=== PATIENT | male | born 1945 | race Two or more races ===

== ENCOUNTER 2020-07-19 07:33 | Emergency (ER) | payer OTHER, MEDICARE, MEDICAID, SELFPAY ==
--- NOTE | ~2020-07-19 | CT_ITS ---
EXAMINATION: CT ABDOMEN AND PELVIS WITH CONTRAST CLINICAL INFORMATION: Inguinal cellulitis and pain. Rule out Maria Guadalupe's gangrene COMPARISON: Ultrasound scrotum 07/19/2020 TECHNIQUE: Multidetector volumetric images were obtained from the superior aspect of the liver through the pubic symphysis following administration 85 mL of Omnipaque 350 intravenous contrast. Sagittal and coronal reformatted images were obtained on the technologist's workstation. Oral contrast: No This CT examination was performed using dose optimization techniques as appropriate, variously including the following: *Automated exposure control *Adjustment of mA and/or kV according to patient size (this includes techniques or standardized protocols for targeted exams where dose is matched to indication/reason for exam; i.e. extremities or head) *Use of iterative reconstruction technique DLP: 1025 mGy-cm FINDINGS: LUNG BASES: There is a right lower lobe compressive atelectasis of air bronchogram likely consolidation as well. The left lung base is clear. The heart size is normal. There are coronary artery calcifications. LIVER, GALLBLADDER, AND BILIARY TREE: The liver is normal in size, shape, and attenuation. No focal hepatic lesion or biliary ductal dilatation is present. The gallbladder is unremarkable with no evidence of radiopaque gallstones, gallbladder wall thickening, or obvious pericholecystic inflammatory changes. PANCREAS: Unremarkable. SPLEEN: Unremarkable. ADRENAL GLANDS: Unremarkable. KIDNEYS AND URETERS: The kidneys are normal in size, shape, and attenuation. No hydronephrosis, hydroureter, or calculi seen. No perinephric stranding. There are bilateral nonenhancing 1 cm upper and lower pole right renal mid and lower pole left renal cysts. BLADDER: Unremarkable. GASTROINTESTINAL TRACT: There is a mass anastomotic suture line at right hepatic flexure with patent lumen. There is diffuse colonic diverticulosis without diverticulitis. There is scattered stool and gas seen throughout the colon without distention. The small bowel loops are normal caliber. The stomach is nondistended and appears unremarkable. Appendix is not visualized. ABDOMINAL WALL: There is a left inguinal hernia containing a loop of colon and intraperitoneal fat within LYMPH NODES: Normal. VASCULAR: Unremarkable. PELVIC VISCERA: There is mild scrotal wall thickening but no gas visualized to suspect any 4 years gangrene. There is no pelvic free fluid or pelvic mass. No abnormal lymph nodes. OSSEOUS STRUCTURES: There are degenerative disc changes with vacuum disc phenomena and moderate spondylosis L5-S1, L4-L5 and L1-L2 disc levels. No fracture or lytic process seen. CT/CT abdomen pelvis w con IMPRESSION: Moderate scrotal wall thickening with no gas visualized is suspected hernias gangrene. Small left inguinal hernia containing intraperitoneal fat and a loop of sigmoid colon. Sigmoid diverticulosis without diverticulitis. There is no bowel obstruction., Free air or free fluid. Bilateral renal cysts. Right lower lobe consolidation/atelectasis.
--- NOTE | ~2020-07-19 | US_ITS ---
EXAMINATION: US SCROTUM CLINICAL INFORMATION: Testicular swelling and pain. Rule out torsion.. COMPARISON: None TECHNIQUE: A sonogram of the scrotum was performed assessing erickson-scale appearance and color Doppler flow. Spectral Doppler analysis of the arterial and venous flow were performed in the testes bilaterally. FINDINGS: RIGHT: Right testicle measures 3.6 x 2.8 x 2.5 cm, volume 13.0 mL. No focal testicular parenchymal lesions are visualized. Spectral Doppler analysis of the arterial and venous flow is normal in the right testis. Right epididymal head is normal in size. There is a small epididymal head cyst measuring 0.8 x 0.8 x 1.0 cm. There is a small right hydrocele. No varicocele is seen. Right epididymal Doppler flow is normal. LEFT: Left testicle measures 3.6 x 3.0 x 2.6 cm, volume 14.8 mL. No focal testicular parenchymal lesions are visualized. Spectral Doppler analysis of the arterial and venous flow is normal in the left testis. Left epididymal head is normal in size. There is small left hydrocele. No varicocele is seen. Left epididymal Doppler flow is normal. There is diffuse scrotal wall thickening. US/US scrotum IMPRESSION: No evidence of scrotal torsion. Normal vascular flow seen to epididymis and testes. Diffuse scrotal skin thickening. Bilateral small hydroceles. Right epididymal head cyst.
--- NOTE | ~2020-07-19 | US_ITS ---
EXAMINATION: US SCROTUM CLINICAL INFORMATION: Testicular swelling and pain. Rule out torsion.. COMPARISON: None TECHNIQUE: A sonogram of the scrotum was performed assessing erickson-scale appearance and color Doppler flow. Spectral Doppler analysis of the arterial and venous flow were performed in the testes bilaterally. FINDINGS: RIGHT: Right testicle measures 3.6 x 2.8 x 2.5 cm, volume 13.0 mL. No focal testicular parenchymal lesions are visualized. Spectral Doppler analysis of the arterial and venous flow is normal in the right testis. Right epididymal head is normal in size. There is a small epididymal head cyst measuring 0.8 x 0.8 x 1.0 cm. There is a small right hydrocele. No varicocele is seen. Right epididymal Doppler flow is normal. LEFT: Left testicle measures 3.6 x 3.0 x 2.6 cm, volume 14.8 mL. No focal testicular parenchymal lesions are visualized. Spectral Doppler analysis of the arterial and venous flow is normal in the left testis. Left epididymal head is normal in size. There is small left hydrocele. No varicocele is seen. Left epididymal Doppler flow is normal. There is diffuse scrotal wall thickening. US/US scrotum doppler IMPRESSION: No evidence of scrotal torsion. Normal vascular flow seen to epididymis and testes. Diffuse scrotal skin thickening. Bilateral small hydroceles. Right epididymal head cyst.
[2020-07-19 07:44] VITALS: BP 165/73; PULSE 77; RESP 18; TEMP 37.1; O2SAT 97; BMI 27.1
--- NOTE | 2020-07-19 09:58 | PC.NURSE ---
BLADDER SCAN FOR PVR PERFORMED 935, RESULTS 17 MLS REPORTED TO INESSA MORALES
[2020-07-19 10:10] LABS: Glucose Urine UA NEG (NEG); Leukocyte Esterase Urine NEG (NEG); Nitrite Urine NEG (NEG); PH 5.5 (5.0-8.0); Specific Gravity - Urine >= 1.030 (1.005-1.025); Urine Blood TRACE (NEG); Urine Ketones NEG (NEG); Urine Protein 2+ MG/DL (NEG-TRACE)
--- NOTE | 2020-07-19 10:16 | ED_ITS ---
HPI - Male Genitourinary General Chief complaint: Urogenital-Male Stated complaint: genital discomfort Time Seen by Provider: 07/19/20 09:03 Source: patient Mode of arrival: ambulatory Limitations: no limitations History of Present Illness HPI Narrative: 74 y/o male with history of DM, CAD s/p stent x2, HTN, HLD who presents with 6 days of worsening scrotal swelling and pain. He also reports a red, spreading, painful itchy rash to his inguinal area that has spread to his thighs, abdomen and arms. He reports the scrotal swelling and worsened significantly over the last few days and now his penis is also swollen. He is able to urinate and fully empty his bladder but he has to push the urine out. He denies fever, chills, N/V/D. No known irritant or allergic exposures. He has never had this problem before. He denies a history of heart failure or being on any diuretic medications. MD Complaint: testicle swelling Onset (ago): day(s) (5) Duration: constant Location: penis, right testicle, left testicle, right inguinal region and left inguinal region Radiation: penis Severity: severe Quality: aching Relieving factors: rest Exacerbating factors: urination, palpation and movement Associated symptoms: Reports swelling and rash Related Data Sexually active: No Home Medications Medication Instructions Recorded Confirmed budesonide-formoterol HFA 160 2 puff INHALATION Q12H 06/21/20 06/21/20 mcg-4.5 mcg/actuation aerosol inhaler cholecalciferol (vitamin D3) 25 25 mcg PO DAILY 06/21/20 06/21/20 mcg (1,000 unit) capsule cyanocobalamin (vitamin B-12) 1,000 mcg PO DAILY 06/21/20 06/21/20 1,000 mcg capsule Previous Rx's Medication Instructions Recorded clopidogrel 75 mg tablet 75 mg PO DAILY #90 tab 04/19/20 linagliptin 5 mg tablet 5 mg PO DAILY #90 tab 04/22/20 metformin 500 mg tablet 500 mg PO BID #180 tab 04/22/20 rosuvastatin 20 mg tablet 20 mg PO DAILY #90 tab 05/13/20 glimepiride 2 mg tablet 2 mg PO QAM #90 tab 05/23/20 albuterol sulfate 90 mcg/actuation 2 puff INHALATION Q6H PRN #8.5 g 06/21/20 aerosol inhaler lisinopril 20 mg tablet 20 mg PO DAILY #90 tab 06/21/20 metoprolol succinate 50 mg 50 mg PO DAILY #90 tab 06/21/20 tablet,extended release 24 hr tramadol 50 mg tablet 50 mg PO Q8H PRN 90 Days #270 tab 06/21/20 cephalexin 500 mg PO Q8H 7 Days #21 cap 07/19/20 diphenhydramine HCl [Benadryl 25 mg PO Q6H PRN #10 tab 07/19/20 Allergy] doxycycline monohydrate 100 mg PO BID #14 cap 07/19/20 furosemide [Lasix] 40 mg PO QAM #7 tab 07/19/20 Allergies Allergy/AdvReac Type Severity Reaction Status Date / Time Shellfish Allergy Mild NOT Uncoded 12/04/19 15:48 APPLICABLE TUNA FISH Allergy Mild NOT Uncoded 12/04/19 15:48 APPLICABLE Review of Systems Review of Systems: Constitutional: No Fever, No Chills ENT/Mouth: No sore throat, No Rhinorrhea, No Swallowing Difficulty Cardiovascular: No Chest Pain, No SOB, No Orthopnea, No LE Edema Respiratory: No Cough, No Sputum Gastrointestinal: No Nausea, No Vomiting, No Diarrhea, No abdominal Pain, No Hematochezia, No Melena Genitourinary: No Dysuria, + Urinary Frequency, No Hematuria, +scrotal swelling, +penile swelling Musculoskeletal: No joint pain, No Myalgias Skin: No Skin Lesions, + rash Neuro: No Weakness, No Numbness, No Dizziness, No Headache Psych: No Anxiety/Panic, No Depression Heme/Lymph: No Bruising, No Lymphadenopathy Endocrine: No Polyuria, No Polydipsia PMFSH Past Medical History Attestation statement: The following information was validated with the patient. Medical History Asthma Colon cancer Coronary artery disease Diabetic nephropathy Generalized osteoarthritis Hypercholesterolemia Hypertension Peripheral vascular disease Type 2 diabetes mellitus with hyperglycemia Vitamin D deficiency Surgical History (Updated 03/02/20 @ 10:15 by JINNY Garcia) History of vascular surgery S/P sclerotherapy of varicose veins Family History Family History (Updated 03/02/20 @ 10:16 by JINNY Garcia) Father Hypertension Mother CVD (cardiovascular disease) Hypertension Maternal Uncle Prostate cancer Social History Social History (Updated 06/21/20 @ 12:45 by Katy Casanova [facility]) Alcohol intake: former Smoking Status: Never smoker Advance Directives: No Advance Directives Information Provided: No Physical Exam Vital Signs: Vital Signs: Last Vital Signs Temp 96.9 F 07/19/20 13:17 Pulse 64 07/19/20 13:17 Resp 16 07/19/20 13:17 BP 144/68 H 07/19/20 13:17 Pulse Ox 96 07/19/20 13:17 Body Mass Index 27.1 Appearance: Alert. Oriented X3. No acute distress. Eyes: Pupils equal, round and reactive to light. ENT: Pharynx normal. Neck: Normal inspection. Neck supple. CVS: Normal heart rate and rhythm. Pulses normal. Respiratory: No respiratory distress. Breath sounds normal. Abdomen: Soft and nontender. +BS x4 : Significant penile and scrotal edema and tenderness, able to partially retract foreskin but due to edema and pain unable to forcefully fully retract, n o palpable scrotal mass, bilateral inguinal erythematous, prurutic rash. Skin: Skin warm and dry. Normal skin color. Normal skin turgor. Diffuse erythematous, tender, warm rash ininguianl areas bilaterally extending to anterior thighs with small red patches as well as lower abdominal wall. Extremities: No lower extremity edema. Neuro: Oriented X 3. No motor deficit. No sensory deficit. Course Course Course Narrative: 74 y/o male with history of DM, HTN, HLD, CAD who presents with new onset of scrotal and penile swelling for the last 5 days as well as painful, itchy rash in the inguinal area. No fever or chills. He is afebrile and not tachycardic on arrival. He is not septic at this time. Given location of rash, pain, and swelling as well as hx DM will need to r/o Fornier's gangrene - case was d/w Dr. Coulter who recommended CT scan and septic workup. IV zosyn ordered Reevaluation(s) Reevaluation #1: Lactic normal. No Leukocytosis. Scrotal U/S showing normal blood flow, no torsion, diffuse thickening of scrotal skin. CT scan penidng. Reevaluation #2: CT scan did not show any evidence of gaseous infection or Fornier's gangrene. Given his clinical stability and negative workup he is stable for discharge home with PO antibiotics, PO lasix as discussed with Dr. Henderson. He will need follow up with Dr. Huber. He was counseled on his diagnosis of cellulitis and need for outpatient follow up. He agrees with plan and agrees to return to the [facility] if any of his symptoms worsen. MDM - Male Genitourinary Lab Data Result diagrams: 07/19/20 10:48 07/19/20 10:48 Labs: Lab Results 07/19/20 07/19/20 07/19/20 Range/Units 09:42 10:47 10:48 WBC 8.7 (4.8-10.8) X10*3/uL RBC 4.38 L (4.60-5.80) X10*6/uL Hgb 13.1 L (14.0-18.0) g/dl Hct 41.2 L (42-52) % MCV 94.1 (80-98) fL MCH 29.9 (27.0-33.0) pg MCHC 31.8 (31.0-36.0) g/dl RDW 14.2 (11.0-16.0) % Plt Count 142 L (160-400) X10*3/uL MPV 12.0 (9.4-12.4) fL Immature Gran % (Auto) 0.3 (0.0-0.4) % Neut % (Auto) 79.6 H (45-73) % Lymph % (Auto) 9.4 L (20-40) % [place] % (Auto) 6.8 (2-11) % Eos % (Auto) 3.6 (0-4) % Baso % (Auto) 0.3 (0-2) % Lymph # (Auto) 0.8 L (1.2-4.9) X10*3/uL [place] # (Auto) 0.6 (0.1-1.2) X10*3/uL Eos # (Auto) 0.3 (0.0-0.4) X10*3/uL Baso # (Auto) 0.0 (0.0-0.2) X10*3/uL Abs Immat Gran (auto) 0.03 (0.00-0.03) X10*3/uL Absolute Neuts (auto) 6.9 (2.0-8.3) X10*3/uL Absolute Nucleated RBC 0.000 (0.0-0.012) X10*3/uL Nucleated RBC % (auto) 0.0 (0.0-0.2) /100WBC Hold Blue Top Sodium (135-145) mmol/L Potassium (3.3-5.1) mmol/L Chloride (96-108) mmol/L Carbon Dioxide (22-29) mmol/L Anion Gap (12-20) BUN (9-16) mg/dL Creatinine (0.5-1.4) mg/dL Estim Creat Clear Calc Estimated GFR Random Glucose (60-115) mg/dL Lactic Acid 1.5 (0.5-2.0) mmol/L Calcium (8.4-10.2) mg/dL Magnesium (1.6-2.6) mg/dL Total Bilirubin (0.0-1.0) mg/dL Direct Bilirubin (0.0-0.5) mg/dL AST (5-37) U/L ALT (0-40) U/L Alkaline Phosphatase (39-117) U/L Total Protein (6.5-8.0) g/dL Albumin (3.5-5.0) g/dL Urine Color YELLOW Urine Appearance CLEAR Urine pH 5.5 (5.0-8.0) Ur Specific [place] >= 1.030 H (1.005-1.025) Urine Protein 2+ H (NEG-TRACE) MG/DL Urine Glucose (UA) NEG (NEG) MG/DL Urine Ketones NEG (NEG) MG/DL Urine Blood TRACE (NEG) Urine Nitrite NEG (NEG) Ur Leukocyte Esterase NEG (NEG) Urine RBC 0-2 (0) /HPF Urine WBC 0 (0-4) /HPF Ur Squamous Epith Cells NONE /LPF Urine Bacteria NONE /LPF Granular Casts 0-2 /LPF 07/19/20 07/19/20 Range/Units 10:48 10:48 WBC (4.8-10.8) X10*3/uL RBC (4.60-5.80) X10*6/uL Hgb (14.0-18.0) g/dl Hct (42-52) % MCV (80-98) fL MCH (27.0-33.0) pg MCHC (31.0-36.0) g/dl RDW (11.0-16.0) % Plt Count (160-400) X10*3/uL MPV (9.4-12.4) fL Immature Gran % (Auto) (0.0-0.4) % Neut % (Auto) (45-73) % Lymph % (Auto) (20-40) % [place] % (Auto) (2-11) % Eos % (Auto) (0-4) % Baso % (Auto) (0-2) % Lymph # (Auto) (1.2-4.9) X10*3/uL [place] # (Auto) (0.1-1.2) X10*3/uL Eos # (Auto) (0.0-0.4) X10*3/uL Baso # (Auto) (0.0-0.2) X10*3/uL Abs Immat Gran (auto) (0.00-0.03) X10*3/uL Absolute Neuts (auto) (2.0-8.3) X10*3/uL Absolute Nucleated RBC (0.0-0.012) X10*3/uL Nucleated RBC % (auto) (0.0-0.2) /100WBC Hold Blue Top SEE NOTE Sodium 141 (135-145) mmol/L Potassium 5.0 (3.3-5.1) mmol/L Chloride 108 (96-108) mmol/L Carbon Dioxide 27 (22-29) mmol/L Anion Gap 11 L (12-20) BUN 29 H (9-16) mg/dL Creatinine 1.36 (0.5-1.4) mg/dL Estim Creat Clear Calc 47.5 Estimated GFR 52 Random Glucose 156 H (60-115) mg/dL Lactic Acid (0.5-2.0) mmol/L Calcium 10.0 (8.4-10.2) mg/dL Magnesium 1.7 (1.6-2.6) mg/dL Total Bilirubin 1.2 H (0.0-1.0) mg/dL Direct Bilirubin 0.4 (0.0-0.5) mg/dL AST 41 H (5-37) U/L ALT 33 (0-40) U/L Alkaline Phosphatase 63 (39-117) U/L Total Protein 6.7 (6.5-8.0) g/dL Albumin 3.9 (3.5-5.0) g/dL Urine Color Urine Appearance Urine pH (5.0-8.0) Ur Specific [place] (1.005-1.025) Urine Protein (NEG-TRACE) MG/DL Urine Glucose (UA) (NEG) MG/DL Urine Ketones (NEG) MG/DL Urine Blood (NEG) Urine Nitrite (NEG) Ur Leukocyte Esterase (NEG) Urine RBC (0) /HPF Urine WBC (0-4) /HPF Ur Squamous Epith Cells /LPF Urine Bacteria /LPF Granular Casts /LPF Discharge Plan Discharge Clinical Impression: Scrotal edema Cellulitis Qualifiers: Site of cellulitis: trunk Site of cellulitis of trunk: groin Qualified Code(s): L03.314 - Cellulitis of groin Patient Disposition: Home, Self-Care Instructions: Cellulitis (ED), Scrotal Pain (ED) Additional Instructions: Your lab workup today was unremarkable. Your Ultrasound showed skin thickening which can be seen with infection of the skin. Your CT scan helped to rule a dangerous type of infection. You are being started on 2 antibiotics for this. Take Benadryl 25 mg as needed for itching rash. You are also being started on a water pill also known as a diuretic for 1 week to help with swelling in your scrotum. Recommend elevating your scrotum as much as possible, place a towel between your legs with your scrotum elevated up. Avoid standing on your feet for prolonged time. Recommend following up with Urology as soon as possible. If you can no longer urinate or fully empty your bladder or if your rash worsens or if you develop fevers, come back to the ER for further evaluation. Prescriptions: New cephalexin 500 mg capsule 500 mg PO Q8H 7 Days Qty: 21 RF: 0 doxycycline monohydrate 100 mg capsule 100 mg PO BID Qty: 14 RF: 0 furosemide [Lasix] 40 mg tablet 40 mg PO QAM Qty: 7 RF: 0 diphenhydramine HCl [Benadryl Allergy] 25 mg tablet 25 mg PO Q6H PRN (Reason: itching) Qty: 10 RF: 0 No Action clopidogrel 75 mg tablet 75 mg PO DAILY Qty: 90 RF: 1 metformin 500 mg tablet 500 mg PO BID Qty: 180 RF: 1 linagliptin [Tradjenta] 5 mg tablet 5 mg PO DAILY Qty: 90 RF: 1 rosuvastatin 20 mg tablet 20 mg PO DAILY Qty: 90 RF: 2 glimepiride 2 mg tablet 2 mg PO QAM Qty: 90 RF: 1 budesonide-formoterol [Symbicort] 160-4.5 mcg/actuation HFA aerosol inhaler 2 puff inhalation Q12H RF: 0 cyanocobalamin (vitamin B-12) 1,000 mcg capsule 1,000 mcg PO DAILY RF: 0 cholecalciferol (vitamin D3) 25 mcg (1,000 unit) capsule 25 mcg PO DAILY RF: 0 albuterol sulfate [Ventolin HFA] 90 mcg/actuation HFA aerosol inhaler 2 puff inhalation Q6H PRN (Reason: bronchospasm) Qty: 8.5 RF: 0 tramadol 50 mg tablet 50 mg PO Q8H PRN (Reason: pain) 90 Days Qty: 270 RF: 1 metoprolol succinate 50 mg tablet extended release 24 hr 50 mg PO DAILY Qty: 90 RF: 1 lisinopril 20 mg tablet 20 mg PO DAILY Qty: 90 RF: 1 Referrals: José Miguel Huber MD [Physician] - 2 days (scrotal swelling and cellulitis ) Interventions: ED Discharge Assessment Last Done: 07/19/20 13:32 Discharge Date/Time: 07/19/20 13:33
[2020-07-19 10:19] LABS: Appearance Urine CLEAR; Color Urine YELLOW
[2020-07-19 10:39] LABS: RBC Urine 0-2 /HPF (0); WBC Urine 0 /HPF (0-4)
[2020-07-19 10:40] LABS: Granular Casts Urine 0-2 /LPF
[2020-07-19 10:55] LABS: MANUAL DIFF FLAG NO
[2020-07-19] MEDS: diphenhydrAMINE HCL 25 MG TABLET PO (10:57)
[2020-07-19] MEDS: Piperacillin Sodium/Tazobactam 3.375 GM in 0.9 % Sodium Chloride 50 ML IV (10:58)
[2020-07-19 11:02] LABS: Basophils Percent Auto 0.3 % (0-2); Eosinophils Absolute Auto 0.3 X10*3/uL (0.0-0.4); Eosinophils Percent Auto 3.6 % (0-4); Hematocrit 41.2 % (42-52); Hemoglobin 13.1 g/dl (14.0-18.0); Imm Gran Abs Auto 0.03 X10*3/uL (0.00-0.03); Imm Gran Pct Auto 0.3 % (0.0-0.4); Lymphocytes Absolute Auto 0.8 X10*3/uL (1.2-4.9); Lymphocytes Percent Auto 9.4 % (20-40); Mean Corpuscular HGB Conc 31.8 g/dl (31.0-36.0); Mean Corpuscular Hemoglobin 29.9 pg (27.0-33.0); Mean Corpuscular Volume 94.1 fL (80-98); Monocytes Absolute Auto 0.6 X10*3/uL (0.1-1.2); Monocytes Percent Auto 6.8 % (2-11); Neutrophils Absolute Auto 6.9 X10*3/uL (2.0-8.3); Neutrophils Percent Auto 79.6 % (45-73); Platelet Count 142 X10*3/uL (160-400); Red Blood Count 4.38 X10*6/uL (4.60-5.80); Red Cell Distribution Width 14.2 % (11.0-16.0); White Blood Count 8.7 X10*3/uL (4.8-10.8)
[2020-07-19 11:15] LABS: Lactic Acid 1.5 mmol/L (0.5-2.0)
[2020-07-19 11:21] LABS: Alanine Aminotransferase 33 U/L (0-40); Albumin Level 3.9 g/dL (3.5-5.0); Alkaline Phosphatase 63 U/L (39-117); Anion Gap 11 (12-20); Aspartate Amino Transferase 41 U/L (5-37); Bilirubin Direct 0.4 mg/dL (0.0-0.5); Bilirubin Total 1.2 mg/dL (0.0-1.0); Blood Urea Nitrogen 29 mg/dL (9-16); Carbon Dioxide 27 mmol/L (22-29); Chloride 108 mmol/L (96-108); Creatinine Clr Calc Pharmacy 47.5; Estimated Glomerular Filt Rate 52; Glucose Random 156 mg/dL (60-115); Magnesium 1.7 mg/dL (1.6-2.6); Sodium 141 mmol/L (135-145); Total Protein 6.7 g/dL (6.5-8.0)
[2020-07-19] MEDS: iohexoL 350 MG/ML 100 ML INFUS..BTL IV (11:54)
[2020-07-19 13:17] VITALS: BP 144/68; PULSE 64; RESP 16; TEMP 36.1; O2SAT 96
== END 2020-07-19 13:33 | disposition home or self-care (01) ==
PROVIDERS: Physician Assistant; Emergency Provider Emergency Medicine; PCP Internal Medicine
DX: N50.82 Scrotal pain (principal); N50.89 Other specified disorders of the male genital organs; E11.9 Type 2 diabetes mellitus without complications; I10 Essential (primary) hypertension; E78.00 Pure hypercholesterolemia, unspecified; Z85.038 Personal history of other malignant neoplasm of large intestine
CPT/HCPCS: 36415; 51798; 74177; 76870; 80048; 80076; 81001; 81003; 83605; 83735; 85025; 87040; 93975; 96361; 96365; 99284; J2543; Q0163; Q9967

== ENCOUNTER 2020-08-31 08:23 | Outpatient (REF) | payer MEDICARE, OTHER, SELFPAY ==
[2020-08-31 09:18] LABS: MANUAL DIFF FLAG NO
[2020-08-31 09:25] LABS: Basophils Percent Auto 0.7 % (0-2); Eosinophils Absolute Auto 0.2 X10*3/uL (0.0-0.4); Eosinophils Percent Auto 2.6 % (0-4); Hematocrit 39.5 % (42-52); Hemoglobin 12.6 g/dl (14.0-18.0); Imm Gran Abs Auto 0.02 X10*3/uL (0.00-0.03); Imm Gran Pct Auto 0.3 % (0.0-0.4); Lymphocytes Absolute Auto 1.3 X10*3/uL (1.2-4.9); Lymphocytes Percent Auto 20.6 % (20-40); Mean Corpuscular HGB Conc 31.9 g/dl (31.0-36.0); Mean Corpuscular Hemoglobin 30.3 pg (27.0-33.0); Monocytes Absolute Auto 0.7 X10*3/uL (0.1-1.2); Neutrophils Absolute Auto 3.9 X10*3/uL (2.0-8.3); Neutrophils Percent Auto 63.8 % (45-73); Platelet Count 133 X10*3/uL (160-400); Red Blood Count 4.16 X10*6/uL (4.60-5.80); White Blood Count 6.1 X10*3/uL (4.8-10.8)
[2020-08-31 09:38] LABS: Estimated Average Glucose 154 mg/dL
[2020-08-31 09:59] LABS: Alanine Aminotransferase 37 U/L (0-40); Albumin Level 4.1 g/dL (3.5-5.0); Alkaline Phosphatase 63 U/L (39-117); Aspartate Amino Transferase 38 U/L (5-37); Bilirubin Total 1.5 mg/dL (0.0-1.0); Blood Urea Nitrogen 31 mg/dL (9-16); Calcium 9.8 mg/dL (8.4-10.2); Cholesterol 131 mg/dL; Estimated Glomerular Filt Rate 46; Glucose Random 137 mg/dL (60-115); HDL Cholesterol 49 mg/dL; LDL Cholesterol Calculated 50 mg/dl; Total Protein 7.1 g/dL (6.5-8.0); Triglycerides 164 mg/dL
[2020-08-31 10:01] LABS: Free T4 (Free Thyroxine) 1.02 ng/dL (0.71-1.85)
[2020-08-31 10:04] LABS: Anion Gap 12 (12-20); Carbon Dioxide 25 mmol/L (22-29); Chloride 110 mmol/L (96-108); Sodium 141 mmol/L (135-145)
[2020-08-31 10:41] LABS: Folate 15.2 ng/mL (> or = 4.0); Vitamin B12 > 2000 pg/mL (200-900)
[2020-08-31 11:56] LABS: Creatinine Urine 97.32 mg/dL; Microalbum/Creatinine Ratio Ur 900.1 ug/mg cr
== END 2020-08-31 08:24 | disposition home or self-care (01) ==
LOC: HO.10HDL 08:23
PROVIDERS: Visit Provider Internal Medicine
DX: E11.65 Type 2 diabetes mellitus with hyperglycemia (principal); E78.00 Pure hypercholesterolemia, unspecified; I10 Essential (primary) hypertension
CPT/HCPCS: 36415; 80053; 80061; 82043; 82607; 82746; 83036; 84439; 84443; 85025

== ENCOUNTER 2020-08-31 18:21 | Emergency (ER) | payer OTHER, MEDICARE, MEDICAID, SELFPAY ==
--- NOTE | 2020-08-31 | ECG_ITS ---
Test Reason : HIGH POTTISUM Blood Pressure : / mmHG Vent. Rate : 073 BPM Atrial Rate : 073 BPM P-R Int : 132 ms QRS Dur : 130 ms QT Int : 424 ms P-R-T Axes : 065 -02 011 degrees QTc Int : 467 ms Artifact in tracing Sinus rhythm with Premature supraventricular complexes Right bundle branch block Anteroseptal infarct (cited on or before 13-MAR-2008) Abnormal ECG When compared with ECG of 16-MAR-2008 16:43, Premature supraventricular complexes are now Present Right bundle branch block is now Present Referred By: Harrison Paredes Electronically Signed By:THERON LOVELACE
[2020-08-31 18:54] VITALS: BP 199/78; PULSE 83; RESP 18; TEMP 36.1; O2SAT 99; BMI 27.2
--- NOTE | 2020-08-31 19:56 | ED_ITS ---
HPI - Recheck/Abnormal Lab/Rx General Chief Complaint: Recheck/Abnormal Lab/Rx Stated Complaint: Potassium Levels High Time Seen by Provider: 08/31/20 19:45 Source: patient Mode of arrival: ambulatory Limitations: no limitations History of Present Illness HPI narrative: Patient's history of diabetes coronary disease asthma hypertension had routine labs done today around 08:00 PCP called him to go to the hospital for potassium of 6 patient denies any complaints no dizziness no leg cramps or chest pain no syncope patient is not taking any new medication, no use of orange juice or bananas and urinating normally had history of high potassium in the past Related Data Home Medications Medication Instructions Recorded Confirmed budesonide-formoterol HFA 160 2 puff INHALATION Q12H 06/21/20 06/21/20 mcg-4.5 mcg/actuation aerosol inhaler cholecalciferol (vitamin D3) 25 25 mcg PO DAILY 06/21/20 06/21/20 mcg (1,000 unit) capsule cyanocobalamin (vitamin B-12) 1,000 mcg PO DAILY 06/21/20 06/21/20 1,000 mcg capsule Previous Rx's Medication Instructions Recorded clopidogrel 75 mg tablet 75 mg PO DAILY #90 tab 04/19/20 linagliptin 5 mg tablet 5 mg PO DAILY #90 tab 04/22/20 metformin 500 mg tablet 500 mg PO BID #180 tab 04/22/20 rosuvastatin 20 mg tablet 20 mg PO DAILY #90 tab 05/13/20 glimepiride 2 mg tablet 2 mg PO QAM #90 tab 05/23/20 albuterol sulfate 90 mcg/actuation 2 puff INHALATION Q6H PRN #8.5 g 06/21/20 aerosol inhaler metoprolol succinate 50 mg 50 mg PO DAILY #90 tab 06/21/20 tablet,extended release 24 hr tramadol 50 mg tablet 50 mg PO Q8H PRN 90 Days #270 tab 06/21/20 cephalexin 500 mg PO Q8H 7 Days #21 cap 07/19/20 diphenhydramine HCl [Benadryl 25 mg PO Q6H PRN #10 tab 07/19/20 Allergy] doxycycline monohydrate 100 mg PO BID #14 cap 07/19/20 furosemide [Lasix] 40 mg PO QAM #7 tab 07/19/20 lisinopril 20 mg tablet 20 mg PO DAILY #90 tab 08/20/20 Allergies Allergy/AdvReac Type Severity Reaction Status Date / Time Shellfish Allergy Mild NOT Uncoded 08/31/20 18:54 APPLICABLE TUNA FISH Allergy Mild NOT Uncoded 08/31/20 18:54 APPLICABLE Review of Systems Review of Systems: Constitutional : No Weight loss, No Fever, No Chills ENT/Mouth : No sore throat, No Rhinorrhea Eyes: No Eye Pain, No Swelling Cardiovascular : No Chest Pain, no palpitations Respiratory : No Cough, No Sputum, no shortness of breath Gastrointestinal : no Nausea, No Vomiting, No Diarrhea, No abdominal Pain, no black stools Genitourinary : No Dysuria, No Urinary Frequency Musculoskeletal : No joint pain, No Myalgias, No Joint Swelling Skin : No Skin Lesions, No rash Neuro : No Weakness, No Numbness, No Dizziness, No Headache Psych : No Anxiety/Panic, No Depression Heme/Lymph: No Bruising, No Lymphadenopathy Endocrine : No Polyuria, No Polydipsia All other systems reviewed and are negative [facility] Past Medical History Medical History Asthma Colon cancer Coronary artery disease Diabetic nephropathy Generalized osteoarthritis Hypercholesterolemia Hypertension Peripheral vascular disease Type 2 diabetes mellitus with hyperglycemia Vitamin D deficiency Surgical History History of vascular surgery S/P sclerotherapy of varicose veins Family History Family History Father Hypertension Mother CVD (cardiovascular disease) Hypertension Maternal Uncle Prostate cancer Social History Social History Alcohol intake: former Advance Directives: No Advance Directives Information Provided: Yes Physical Exam Vital Signs: Vital Signs: Last Vital Signs Temp 96.9 F 08/31/20 18:54 Pulse 83 08/31/20 18:54 Resp 18 08/31/20 18:54 BP 199/78 H 08/31/20 18:54 Pulse Ox 99 08/31/20 18:54 Body Mass Index 27.2 Appearance: Alert. Oriented X3. No acute distress. Eyes: PERRLA, No Nystagmus ENT: Pharynx normal. Oral Mucosa moist Neck: Normal inspection. Neck supple. CVS: Normal heart rate and rhythm. Pulses normal. Respiratory: No respiratory distress. Equal air entry bilateral, no wheezing/rales/rhonchi Abdomen: Soft and nontender. Bowel sounds are present, no mass palpable, no CVA tenderness Skin: Skin warm and dry. Normal skin color. Normal skin turgor. Extremities: No lower extremity edema. No calf tenderness Neuro: Oriented X 3. No motor deficit. No sensory deficit.No cerebellar signs , cranial nerves II-XII intact MDM - Recheck/Abnormal Lab/Rx MDM Narrative Medical decision making narrative: Patient labs showed potassium of 5.1 without any treatment or medications. Likely a.m. labs were lab error. Patient has CKD with creatinine of 1.59 and BUN 30 will give 1 L NS bolus Lab Data Attestation: I reviewed the patient's lab results. Result diagrams: 08/31/20 20:03 Labs: Lab Results 08/31/20 Range/Units 20:03 Sodium 143 (135-145) mmol/L Potassium 5.1 (3.3-5.1) mmol/L Chloride 111 H (96-108) mmol/L Carbon Dioxide 24 (22-29) mmol/L Anion Gap 13 (12-20) BUN 30 H (9-16) mg/dL Creatinine 1.59 H (0.5-1.4) mg/dL Estim Creat Clear Calc 40.6 Estimated GFR 43 Random Glucose 166 H (60-115) mg/dL Calcium 9.4 (8.4-10.2) mg/dL ECG Data Attestation: I personally reviewed and interpreted this ECG as follows: Interpretation: Normal sinus rhythm heart rate 73 beats per minute admitted branch block Q-wave in anterior septal leads no acute ischemia Discharge Plan Discharge Clinical Impression: Chronic kidney disease Qualifiers: Chronic kidney disease stage: stage 3 (moderate) Chronic kidney disease stage 3 subtype: stage 3b (GFR 30-44) Qualified Code(s): N18.32 - Chronic kidney disease, stage 3b Patient Disposition: Home, Self-Care Instructions: Chronic Kidney Disease (ED) Additional Instructions: Drink plenty of fluids Stop metformin Continue other medication follow-up with PCP next 3 days to recheck her labs Prescriptions: No Action clopidogrel 75 mg tablet 75 mg PO DAILY Qty: 90 RF: 1 metformin 500 mg tablet 500 mg PO BID Qty: 180 RF: 1 linagliptin [Tradjenta] 5 mg tablet 5 mg PO DAILY Qty: 90 RF: 1 rosuvastatin 20 mg tablet 20 mg PO DAILY Qty: 90 RF: 2 glimepiride 2 mg tablet 2 mg PO QAM Qty: 90 RF: 1 lisinopril 20 mg tablet 20 mg PO DAILY Qty: 90 RF: 2 cephalexin 500 mg capsule 500 mg PO Q8H 7 Days Qty: 21 RF: 0 doxycycline monohydrate 100 mg capsule 100 mg PO BID Qty: 14 RF: 0 furosemide [Lasix] 40 mg tablet 40 mg PO QAM Qty: 7 RF: 0 diphenhydramine HCl [Benadryl Allergy] 25 mg tablet 25 mg PO Q6H PRN (Reason: itching) Qty: 10 RF: 0 budesonide-formoterol [Symbicort] 160-4.5 mcg/actuation HFA aerosol inhaler 2 puff inhalation Q12H RF: 0 cyanocobalamin (vitamin B-12) 1,000 mcg capsule 1,000 mcg PO DAILY RF: 0 cholecalciferol (vitamin D3) 25 mcg (1,000 unit) capsule 25 mcg PO DAILY RF: 0 albuterol sulfate [Ventolin HFA] 90 mcg/actuation HFA aerosol inhaler 2 puff inhalation Q6H PRN (Reason: bronchospasm) Qty: 8.5 RF: 0 tramadol 50 mg tablet 50 mg PO Q8H PRN (Reason: pain) 90 Days Qty: 270 RF: 1 metoprolol succinate 50 mg tablet extended release 24 hr 50 mg PO DAILY Qty: 90 RF: 1
[2020-08-31 20:26] LABS: Anion Gap 13 (12-20); Blood Urea Nitrogen 30 mg/dL (9-16); Calcium 9.4 mg/dL (8.4-10.2); Carbon Dioxide 24 mmol/L (22-29); Chloride 111 mmol/L (96-108); Creatinine Clr Calc Pharmacy 40.6; Estimated Glomerular Filt Rate 43; Glucose Random 166 mg/dL (60-115); Potassium 5.1 mmol/L (3.3-5.1); Sodium 143 mmol/L (135-145)
--- NOTE | 2020-08-31 20:36 | PC.NURSE ---
potassium came back 5.1, md only wants fluid bolus and will cancl iv medications.
[2020-08-31] MEDS: 0.9 % Sodium Chloride 1,000 ML 999 ML IVCONT (20:44)
== END 2020-08-31 22:43 | disposition home or self-care (01) ==
PROVIDERS: Emergency Provider Internal Medicine; PCP Internal Medicine
DX: I12.9 Hypertensive chronic kidney disease with stage 1 through stage 4 chronic kidney disease, or unspecified chronic kidney disease (principal); E11.22 Type 2 diabetes mellitus with diabetic chronic kidney disease; N18.32 Chronic kidney disease, stage 3b; I25.10 Atherosclerotic heart disease of native coronary artery without angina pectoris; Z79.84 Long term (current) use of oral hypoglycemic drugs; Z79.899 Other long term (current) drug therapy
CPT/HCPCS: 36415; 80048; 93005; 96360; 99283; 99284

== ENCOUNTER → 2020-10-27 12:43 | Outpatient (BNVA) | payer MEDICARE, OTHER, SELFPAY | PROVIDERS: PCP Internal Medicine; Referring Provider Internal Medicine; Visit Provider Internal Medicine | DX: I25.10 Atherosclerotic heart disease of native coronary artery without angina pectoris (principal); E11.8 Type 2 diabetes mellitus with unspecified complications; I10 Essential (primary) hypertension; I25.2 Old myocardial infarction | CPT/HCPCS: 99212 ==

== ENCOUNTER → 2021-07-06 12:41 | Outpatient (BNVA) | payer MEDICARE, OTHER, SELFPAY | PROVIDERS: PCP Internal Medicine; Referring Provider Internal Medicine; Visit Provider Internal Medicine | DX: I25.10 Atherosclerotic heart disease of native coronary artery without angina pectoris (principal); I25.5 Ischemic cardiomyopathy; T82.867D Thrombosis due to cardiac prosthetic devices, implants and grafts, subsequent encounter; E11.9 Type 2 diabetes mellitus without complications; I10 Essential (primary) hypertension; I25.2 Old myocardial infarction; Z79.02 Long term (current) use of antithrombotics/antiplatelets; Z79.899 Other long term (current) drug therapy | CPT/HCPCS: 99212 ==

== ENCOUNTER 2021-08-01 07:35 | Outpatient (REF) | payer MEDICARE, OTHER, SELFPAY ==
[2021-08-01 10:20] LABS: MANUAL DIFF FLAG NO
[2021-08-01 10:24] LABS: Basophils Absolute Auto 0.1 X10*3/uL (0.0-0.2); Basophils Percent Auto 0.9 % (0-2); Eosinophils Absolute Auto 0.5 X10*3/uL (0.0-0.4); Eosinophils Percent Auto 5.9 % (0-4); Hematocrit 42.6 % (42.0-52.0); Hemoglobin 13.8 g/dl (14.0-18.0); Imm Gran Abs Auto 0.03 X10*3/uL (0.00-0.03); Imm Gran Pct Auto 0.4 % (0.0-0.4); Lymphocytes Absolute Auto 1.5 X10*3/uL (1.2-4.9); Lymphocytes Percent Auto 18.5 % (20-40); Mean Corpuscular HGB Conc 32.4 g/dl (31.0-36.0); Mean Corpuscular Hemoglobin 30.5 pg (27.0-33.0); Mean Corpuscular Volume 94.2 fL (80.0-98.0); Mean Platelet Volume 12.2 fL (9.4-12.4); Monocytes Absolute Auto 0.9 X10*3/uL (0.1-1.2); Monocytes Percent Auto 10.7 % (2-11); Neutrophils Absolute Auto 5.1 x10*3/uL (2.0-8.3); Neutrophils Percent Auto 63.6 % (45-73); Platelet Count 150 X10*3/uL (160-400); Red Blood Count 4.52 X10*6/uL (4.60-5.80); Red Cell Distribution Width 13.8 % (11.0-16.0)
[2021-08-01 10:36] LABS: Alanine Aminotransferase 41 U/L (0-40); Albumin Level 3.8 g/dL (3.5-5.0); Alkaline Phosphatase 79 U/L (39-117); Anion Gap 12 (12-20); Aspartate Amino Transferase 37 U/L (5-37); Bilirubin Total 1.2 mg/dL (0.0-1.0); Blood Urea Nitrogen 28 mg/dL (9-16); Calcium 9.9 mg/dL (8.4-10.2); Carbon Dioxide 27 mmol/L (22-29); Chloride 107 mmol/L (96-108); Cholesterol 192 mg/dL; Estimated Glomerular Filt Rate 46; Glucose Random 180 mg/dL (60-115); HDL Cholesterol 43 mg/dL; LDL Cholesterol Calculated 102 mg/dl; Potassium 5.9 mmol/L (3.3-5.1); Sodium 140 mmol/L (135-145); Total Protein 7.2 g/dL (6.5-8.0); Triglycerides 235 mg/dL
[2021-08-01 10:46] LABS: Estimated Average Glucose 186 mg/dL; Hemoglobin A1c % 8.1 %
[2021-08-01 11:03] LABS: Free T4 (Free Thyroxine) 1.14 ng/dL (0.71-1.85); Thyroid Stimulating Hormone 2.33 uIU/mL (0.32-4.0)
[2021-08-01 11:20] LABS: Creatinine Urine 100.87 mg/dL
[2021-08-01 11:33] LABS: Folate 18.6 ng/mL (> or = 4.0); Vitamin B12 1540 pg/mL (200-900)
== END 2021-08-01 07:36 | disposition home or self-care (01) ==
LOC: HO.10HDL 07:35
PROVIDERS: Visit Provider Internal Medicine
DX: E11.65 Type 2 diabetes mellitus with hyperglycemia (principal); E11.8 Type 2 diabetes mellitus with unspecified complications; E78.00 Pure hypercholesterolemia, unspecified
CPT/HCPCS: 36415; 80053; 80061; 82043; 82607; 82746; 83036; 84439; 84443; 85025

== ENCOUNTER 2021-08-29 07:35 | Outpatient (REF) | payer MEDICARE, OTHER, SELFPAY ==
[2021-08-29 11:37] LABS: Alanine Aminotransferase 36 U/L (0-40); Alkaline Phosphatase 73 U/L (39-117); Anion Gap 11 (12-20); Aspartate Amino Transferase 34 U/L (5-37); Bilirubin Total 1.6 mg/dL (0.0-1.0); Blood Urea Nitrogen 32 mg/dL (9-16); Calcium 9.8 mg/dL (8.4-10.2); Carbon Dioxide 26 mmol/L (22-29); Chloride 105 mmol/L (96-108); Cholesterol 140 mg/dL; Estimated Glomerular Filt Rate 43; Glucose Random 172 mg/dL (60-115); HDL Cholesterol 40 mg/dL; LDL Cholesterol Calculated 71 mg/dl; Potassium 5.6 mmol/L (3.3-5.1); Sodium 136 mmol/L (135-145); Total Protein 7.2 g/dL (6.5-8.0); Triglycerides 146 mg/dL
[2021-08-29 11:55] LABS: Creatinine Urine 90.85 mg/dL
[2021-08-29 11:59] LABS: Prostate Specific Antigen 2.62 ng/mL (<0.05-4.0)
== END 2021-08-29 07:36 | disposition home or self-care (01) ==
LOC: HO.10HDL 07:35
PROVIDERS: Nurse Practitioner Family; Visit Provider Internal Medicine
DX: Z12.5 Encounter for screening for malignant neoplasm of prostate (principal); E11.65 Type 2 diabetes mellitus with hyperglycemia; E11.8 Type 2 diabetes mellitus with unspecified complications; E78.00 Pure hypercholesterolemia, unspecified
CPT/HCPCS: 36415; 80053; 80061; 84153

== ENCOUNTER → 2022-07-05 12:43 | Outpatient (BNVA) | payer MEDICARE, OTHER, SELFPAY | PROVIDERS: PCP Internal Medicine; Referring Provider Internal Medicine; Visit Provider Internal Medicine | DX: I25.10 Atherosclerotic heart disease of native coronary artery without angina pectoris (principal); T82.867A Thrombosis due to cardiac prosthetic devices, implants and grafts, initial encounter; I25.5 Ischemic cardiomyopathy; I10 Essential (primary) hypertension; E11.65 Type 2 diabetes mellitus with hyperglycemia; E11.21 Type 2 diabetes mellitus with diabetic nephropathy; Z95.5 Presence of coronary angioplasty implant and graft | CPT/HCPCS: 99212 ==

== ENCOUNTER 2022-08-21 07:32 | Outpatient (REF) | payer MEDICARE, MEDICAID, SELFPAY ==
[2022-08-21 10:58] LABS: MANUAL DIFF FLAG NO
[2022-08-21 11:32] LABS: Basophils Absolute Auto 0.1 X10*3/uL (0.0-0.2); Basophils Percent Auto 0.6 % (0-2); Eosinophils Absolute Auto 0.2 X10*3/uL (0.0-0.4); Eosinophils Percent Auto 2.4 % (0-4); Hematocrit 42.4 % (42.0-52.0); Hemoglobin 13.5 g/dl (14.0-18.0); Imm Gran Abs Auto 0.03 X10*3/uL (0.00-0.03); Imm Gran Pct Auto 0.3 % (0.0-0.4); Lymphocytes Absolute Auto 1.4 X10*3/uL (1.2-4.9); Lymphocytes Percent Auto 15.6 % (20-40); Mean Corpuscular HGB Conc 31.8 g/dl (31.0-36.0); Mean Corpuscular Hemoglobin 30.9 pg (27.0-33.0); Mean Platelet Volume 11.7 fL (9.4-12.4); Monocytes Absolute Auto 0.5 X10*3/uL (0.1-1.2); Monocytes Percent Auto 5.5 % (2-11); Neutrophils Absolute Auto 6.6 x10*3/uL (2.0-8.3); Neutrophils Percent Auto 75.6 % (45-73); Platelet Count 183 X10*3/uL (160-400); Red Blood Count 4.37 X10*6/uL (4.60-5.80); Red Cell Distribution Width 13.3 % (11.0-16.0); White Blood Count 8.7 X10*3/uL (4.8-10.8)
[2022-08-21 12:09] LABS: Creatinine Urine 85.92 mg/dL
[2022-08-21 12:15] LABS: Alanine Aminotransferase 22 U/L (0-40); Albumin Level 4.1 g/dL (3.5-5.0); Alkaline Phosphatase 87 U/L (39-117); Anion Gap 13 (12-20); Aspartate Amino Transferase 27 U/L (5-37); Blood Urea Nitrogen 32 mg/dL (9-16); Calcium 10.2 mg/dL (8.4-10.2); Carbon Dioxide 27 mmol/L (22-29); Chloride 107 mmol/L (96-108); Cholesterol 126 mg/dL; Estimated Glomerular Filt Rate 41; Glucose Random 156 mg/dL (60-115); HDL Cholesterol 34 mg/dL; LDL Cholesterol Calculated 65 mg/dl; Sodium 141 mmol/L (135-145); Total Protein 7.7 g/dL (6.5-8.0); Triglycerides 137 mg/dL
[2022-08-21 12:34] LABS: Folate 13.4 ng/mL (> or = 4.0); Free T4 (Free Thyroxine) 1.16 ng/dL (0.71-1.85); Vitamin B12 > 2000 pg/mL (200-900)
== END 2022-08-21 07:33 | disposition home or self-care (01) ==
LOC: HO.10HDL 07:32
PROVIDERS: Visit Provider Internal Medicine
DX: E11.65 Type 2 diabetes mellitus with hyperglycemia (principal); E78.00 Pure hypercholesterolemia, unspecified
CPT/HCPCS: 36415; 80053; 80061; 82043; 82607; 82746; 84439; 84443; 85025

== ENCOUNTER 2022-12-11 12:53 | Outpatient (AMB) | payer MEDICARE, MEDICAID, SELFPAY ==
--- NOTE | 2022-12-11 13:05 | MHC.PC.OV ---
Vital Signs 12/11/22 13:06 Height 5 ft 8 in Weight 157 lb BMI 23.9 BP 132/60 Blood Pressure Location Lt brachial Position Sitting Pulse 56 Pulse Source Pulse Oximeter Temp Source Skin Pulse Oximetry (%) 96 Oxygen Delivery Method Room Air Intake Visit Reasons: hyperkalemia, DM Intake Note: Patient is here to follow up Allergies Shellfish Allergy (Mild, Uncoded 12/11/22 13:15) NOT APPLICABLE Medication List - Last Reconciled 12/11/22 by Allen Sevilla MD albuterol sulfate 90 mcg/actuation (Ventolin HFA) 2 puffs inhalation Q6H PRN amlodipine (Norvasc) 5 mg PO DAILY budesonide-formoterol 160-4.5 mcg/actuation (Symbicort) 2 puffs inhalation Q12H cholecalciferol (vitamin D3) 25 mcg PO DAILY clopidogrel 75 mg PO DAILY cyanocobalamin (vitamin B-12) 1,000 mcg PO DAILY empagliflozin (Jardiance) 10 mg PO DAILY gabapentin 100 mg PO BEDTIME glimepiride 2 mg PO QAM hydrocortisone 2.5% 1 appl topical BID PRN [Large Gauze Pads CURAD 4 x 4 in As directed] linagliptin (Tradjenta) 5 mg PO DAILY lisinopril 20 mg PO DAILY metoprolol succinate ER 100 mg PO DAILY 90 days rosuvastatin 20 mg PO DAILY tramadol 50 mg PO Q8H PRN 90 days Tobacco use date assessed: 12/11/22 Fall risk assessment: No Falls in past year Last assessed Fall Risk: 12/11/22 Dental Screening Dental Screen Date: 12/11/22 Did you have a dental visit in the last 12 months?: Yes Did you have a dental problem in the last 6 months where you did not have access to dental care?: No Was dental information given to patient?: Patient has dentist HPI hyperkalemia, DM HPI Details 76-year-old male with controlled diabetes mellitus hypercholesterolemia coronary artery disease asthma chronic kidney disease hypertension ischemic cardiomyopathy coming in for follow-up. August last seen. Patient has declined colon cancer screening. Patient has hyperkalemia and has been referred to Nephrology. patient did not have a schedule called from nephrology. advised to get the blood work now complains of frequency. no fever- started a month ago FORMERLY [facility] Medical History (Updated 12/11/22 @ 13:38 by Allen Sevilla MD) Ischemic cardiomyopathy Essential hypertension Colon cancer Type 2 diabetes mellitus with hyperglycemia Hypercholesterolemia Diabetic nephropathy Vitamin D deficiency Peripheral vascular disease Coronary artery disease Generalized osteoarthritis Asthma Surgical History History of vascular surgery S/P sclerotherapy of varicose veins Family History (Updated 08/28/22 @ 12:56 by Katy Casanova CMA) Father Hypertension Mother CVD (cardiovascular disease) Hypertension Maternal Uncle Prostate cancer Social History (Updated 07/05/22 @ 13:05 by Bijal Somers) Housing: House Alcohol intake: former Patient Tobacco Use Status: Never used Tobacco e-Cigarette/Vaping Use: Never Used Second Hand Smoke Exposure: No service: Yes Current occupational status: retired and disabled Current occupational exposures/hazards: No Cognitive needs: No Hearing needs: No Vision needs: No Questionnaire Thrive Questionnaire Date Thrive assessed: 05/22/22 AUDIT C Alcohol Use Questionnaire (AUDIT-C) 1. How often do you have a drink containing alcohol?: Never 3. How often do you have six or more drinks on one occasion?: Never Total Score: 0 Score Reviewed/Action Taken: No BALJIT-7 AMB Questionnaire BALJIT-7 Date BALJIT - 7 assessed: 05/22/22 Source: Developed by Drs. Leonel King, Sherry Rosales, Herman Rodriguez and colleagues, with an educational sandi from [employer]. Physical exam (Primary Care) Vital Signs: Last Vital Signs Pulse 56 12/11/22 13:06 BP 132/60 12/11/22 13:06 Pulse Ox 96 12/11/22 13:06 Oxygen Delivery Method Room Air 12/11/22 13:06 BMI result Body Mass Index 23.9 Tobacco/Smoking Status: Tobacco use Status Tobacco use date assessed 12/11/22 12/11/22 13:07 Patient Tobacco Use Status Never used Tobacco 12/11/22 13:07 Tobacco use type 07/05/22 13:16 e-Cigarette/Vaping Use Never Used 12/11/22 13:07 Thrive Assessment: Date of Thrive Assessment Date Thrive assessed 05/22/22 12/11/22 13:07 Const General: alert; No acute distress Eyes Conjunctivae: conjunctivae normal Resp Auscultation: clear to auscultation bilaterally Cardio Rate: regular rate Rhythm: regular rhythm GI Inspection: Yes normal to inspection Extrem General: Yes normal to inspection and No edema Results AMB Hemoglobin A1c AMB Hemoglobin A1c 6.1 % Last Edit by JINNY Pappas on 12/11/22 13:22 Results Reviewed Results Reviewed: Laboratory Last Values Hgb A1c (Clinic) 6.1 % (4.0-6.0) H 12/11/22 13:04 Assessment and Plan Assessment & Plan (1) Type 2 diabetes mellitus with hyperglycemia: Comment: Dr. Villagomez Code(s): E11.65 - Type 2 diabetes mellitus with hyperglycemia Qualifiers: Diabetes mellitus snf insulin use: without snf use Qualified Code(s): E11.65 - Type 2 diabetes mellitus with hyperglycemia Plan: Decrease the amount of carbohydrate intake, pasta, bread, rice and potatoes are all sugar and that is aside from all the sweet stuff, remember that fruits are good but they are Sweet also. Hemoglobin A1c goal of less than 7.0. Patient is on Jardiance 10 mg once a day glimepiride 2 mg once a day Tradjenta 5 mg once a day (2) Hypercholesterolemia: Code(s): E78.00 - Pure hypercholesterolemia, unspecified Plan: Avoid fried foods, chicken skin, eggs, butter margarine, pastries and meat. Be it pork or beef they have a lot of cholesterol LDL goal of less than 70 patient had blood work in August and is on rosuvastatin 20 mg once a day (3) Coronary artery disease: Comment: Stent placement 2003 [place] October 2006 echocardiogram November 2016 EF 40-45% ischemic cardiomyopathy myocardial perfusion January 2017 is ejection fraction 40% Code(s): I25.10 - Atherosclerotic heart disease of [place] coronary artery without angina pectoris Qualifiers: Coronary Disease-Associated Artery/Lesion type: [place] artery [place] vs. transplanted heart: [place] heart Associated angina: without angina Qualified Code(s): I25.10 - Atherosclerotic heart disease of [place] coronary artery without angina pectoris Plan: Control the cholesterol, weight, blood pressure, diabetes (4) Chronic kidney disease: Code(s): N18.9 - Chronic kidney disease, unspecified Plan: Patient has been referred to Nephrology. Will do a repeat blood work (5) Hyperkalemia: Code(s): E87.5 - Hyperkalemia Plan: Concern about hyperkalemia patient on lisinopril 20 mg referral to nephrology done (6) Frequency of micturition: Code(s): R35.0 - Frequency of micturition Orders: Orders AMB Hemoglobin A1c Today E11.65 - Type 2 diabetes mellitus with hyperglycemia Comprehensive Met. Panel Today E87.5 - Hyperkalemia UA w Microscopic Today R35.0 - Frequency of micturition US bladder Today R35.0 - Frequency of micturition Coding Level of Care Code Est Pt Level 4 (50979) Diagnoses Type 2 diabetes mellitus with hyperglycemia, without long-term current use of insulin E11.65 Diabetes mellitus manager long term care insulin use: without manager long term care use Hypercholesterolemia E78.00 Coronary artery disease involving [place] coronary artery of [place] heart without angina pectoris I25.10 Coronary Disease-Associated Artery/Lesion type: [place] artery [place] vs. transplanted heart: [place] heart Associated angina: without angina Chronic kidney disease N18.9 Hyperkalemia E87.5 Frequency of micturition R35.0
[2022-12-11 13:06] VITALS: BP 132/60; PULSE 56; O2SAT 96; BMI 23.9
== END 2022-12-11 13:44 | disposition home or self-care (01) ==
PROVIDERS: PCP Internal Medicine; Visit Provider Internal Medicine
DX: E11.65 Type 2 diabetes mellitus with hyperglycemia (principal)
CPT/HCPCS: 83036; 99214

== ENCOUNTER 2022-12-11 13:58 | Outpatient (REF) | payer MEDICARE, MEDICAID, SELFPAY ==
[2022-12-11 14:53] LABS: Alanine Aminotransferase 28 U/L (0-40); Albumin Level 4.2 g/dL (3.5-5.0); Alkaline Phosphatase 85 U/L (39-117); Anion Gap 13 (12-20); Aspartate Amino Transferase 32 U/L (5-37); Bilirubin Total 0.8 mg/dL (0.0-1.0); Blood Urea Nitrogen 35 mg/dL (9-16); Calcium 10.5 mg/dL (8.4-10.2); Carbon Dioxide 24 mmol/L (22-29); Chloride 110 mmol/L (96-108); Estimated Glomerular Filt Rate 45; Glucose Random 102 mg/dL (60-115); Potassium 5.8 mmol/L (3.3-5.1); Sodium 141 mmol/L (135-145); Total Protein 8.2 g/dL (6.5-8.0)
[2022-12-11 16:06] LABS: Appearance Urine Clear; Color Urine Yellow; Glucose Urine UA >=1000 mg/dL (Negative); Leukocyte Esterase Urine Negative (Negative); Nitrite Urine Negative (Negative); Specific Gravity - Urine 1.025 (1.005-1.025); UMIC TRIGGER UA YES; Urine Blood Negative (Negative); Urine Ketones Negative (Negative); Urine Protein 100 (2+) mg/dL (Neg-Trace)
[2022-12-11 16:09] LABS: Bacteria Urine None Seen (None Seen); RBC Urine 0-2 /HPF (0-2); Squamous Epithelial Cell Urine 0-2 /HPF (0-2); WBC Urine 0-5 /HPF (0-5)
== END 2022-12-11 13:59 | disposition home or self-care (01) ==
LOC: HO.LAB 13:58
PROVIDERS: PCP Internal Medicine; Visit Provider Internal Medicine
DX: R35.0 Frequency of micturition (principal); E87.5 Hyperkalemia; E11.65 Type 2 diabetes mellitus with hyperglycemia
CPT/HCPCS: 36415; 80053; 81001

== ENCOUNTER 2022-12-28 12:46 | Outpatient (REF) | payer MEDICARE, MEDICAID, SELFPAY ==
--- NOTE | ~2022-12-28 | US_ITS ---
EXAMINATION: US PELVIS LIMITED (BLADDER) CLINICAL INFORMATION: Frequency of micturition. COMPARISON: CT abdomen and pelvis without and with contrast dated 07/19/2020. Ultrasound abdomen complete dated 07/11/2010 and 09/22/2005. TECHNIQUE: Real-time imaging of the bladder. FINDINGS: BLADDER: Partially distended, limiting evaluation. Bilateral ureteral jets are demonstrated. Prevoid bladder volume is 138 mL. Postvoid bladder volume is 68.8 mL. Prostate volume is 52.5 mL. Enlarged, heterogeneous lobulated prostate gland with echogenic foci characteristic of coarse calcifications. US/US bladder IMPRESSION: Enlarged, heterogeneous lobulated prostate gland. Postvoid bladder volume 68.8 mL.
== END 2022-12-28 12:47 | disposition home or self-care (01) ==
LOC: HO.US 12:46
PROVIDERS: PCP Internal Medicine; Visit Provider Internal Medicine
DX: R35.0 Frequency of micturition (principal)
CPT/HCPCS: 76857

== ENCOUNTER 2022-12-28 13:26 | Emergency (ER) | payer MEDICARE, MEDICAID, SELFPAY ==
--- NOTE | 2022-12-28 14:37 | ED.GENADULT ---
HPI - General Adult General Stated complaint: infection in legs Related Data Home Medications Medication Instructions Recorded Confirmed cholecalciferol (vitamin D3) 25 25 mcg PO DAILY 06/21/20 02/15/23 mcg (1,000 unit) capsule cyanocobalamin (vitamin B-12) 1,000 mcg PO DAILY 06/21/20 02/15/23 1,000 mcg capsule lisinopril 20 mg tablet 20 mg PO DAILY 02/15/23 02/15/23 Previous Rx's Medication Instructions Recorded Large Gauze Pads CURAD 4 x 4 in #150 ea 11/02/21 hydrocortisone 2.5 % topical cream 1 appl topical BID PRN skin 02/13/22 irritation #30 grams albuterol sulfate 90 mcg/actuation 2 puff inhalation Q6H PRN 05/11/22 aerosol inhaler (Ventolin HFA) bronchospasm #8.5 grams budesonide-formoterol HFA 160 2 puff inhalation Q12H #3 ea 05/11/22 mcg-4.5 mcg/actuation aerosol inhaler (Symbicort) clopidogrel 75 mg tablet 75 mg PO DAILY #90 tabs 05/11/22 metoprolol succinate 100 mg 100 mg PO DAILY 90 days #90 tabs 05/11/22 tablet,extended release 24 hr rosuvastatin 20 mg tablet 20 mg PO DAILY #90 tabs 05/11/22 amlodipine 10 mg tablet 10 mg PO DAILY #30 tabs 12/11/22 gabapentin 100 mg capsule 100 mg PO BEDTIME #90 caps 12/25/22 cephalexin 500 mg capsule 500 mg PO BID 5 days #10 caps 01/04/23 doxycycline monohydrate 100 mg 100 mg PO BID 5 days #10 caps 01/04/23 capsule glimepiride 2 mg tablet 2 mg PO QAM #90 tabs 01/11/23 empagliflozin 10 mg tablet 10 mg PO DAILY #30 tabs 01/22/23 (Jardiance) tramadol 50 mg tablet 50 mg PO Q8H PRN pain 90 days #270 01/22/23 tabs linagliptin 5 mg tablet (Tradjenta) 5 mg PO DAILY #90 tabs 02/02/23 finasteride 5 mg tablet (Proscar) 5 mg PO DAILY 90 days #90 tabs 02/15/23 Allergies Allergy/AdvReac Type Severity Reaction Status Date / Time lisinopril AdvReac Intermediate hyperkalemi Verified 02/15/23 13:15 a Shellfish Allergy Mild NOT Uncoded 02/15/23 13:15 APPLICABLE FOR[facility]LY [facility] Past Medical History Medical History Ischemic cardiomyopathy Essential hypertension Colon cancer Type 2 diabetes mellitus with hyperglycemia Hypercholesterolemia Diabetic nephropathy Vitamin D deficiency Peripheral vascular disease Coronary artery disease Generalized osteoarthritis Asthma Surgical History History of vascular surgery S/P sclerotherapy of varicose veins Family History Family History Father Hypertension Mother CVD (cardiovascular disease) Hypertension Maternal Uncle Prostate cancer Social History Social History Housing: House Alcohol intake: former Patient Tobacco Use Status: Never used Tobacco e-Cigarette/Vaping Use: Never Used Second Hand Smoke Exposure: No Advance Directives Date on File: 02/03/21 service: Yes Current occupational status: retired and disabled Current occupational exposures/hazards: No Cognitive needs: No Hearing needs: No Vision needs: No Course Course Course Narrative: RME- 77 year old male presents for evaluation of toe pain. He did not respond to multiple calls for triage, but apparently was in the waiting room. He then told registration staff that he was leaving, He ambulated independently, and appeared well. Discharge Plan Discharge Clinical Impression: Pain in toe Patient Disposition: Left Without Being Seen Interventions: LWBS Worksheet Last Done: 12/28/22 14:38 Discharge Date/Time: 12/28/22 15:01
== END 2022-12-28 15:01 | disposition left against medical advice (07) ==
PROVIDERS: Emergency Provider Emergency Medicine; PCP Internal Medicine
DX: M79.676 Pain in unspecified toe(s) (principal); E11.9 Type 2 diabetes mellitus without complications; I10 Essential (primary) hypertension; E78.00 Pure hypercholesterolemia, unspecified

== ENCOUNTER 2023-01-04 11:49 | Emergency (ER) | payer MEDICARE, MEDICAID, SELFPAY ==
--- NOTE | ~2023-01-04 | XR_ITS ---
EXAMINATION: XR CHEST CLINICAL INFORMATION: Bilateral lower extremity edema COMPARISON: 03/13/2008 TECHNIQUE: 2 views of the chest were obtained. FINDINGS: The right hemidiaphragm is considerably elevated as compared to the left, but the lungs are clear. There are no pleural effusions. The cardiomediastinal silhouette is not well assessed secondary to the elevated right diaphragm. XR/XR chest 2V IMPRESSION: 1. Elevated right hemidiaphragm, age-indeterminate. 2. Clear lungs.
[2023-01-04 12:47] VITALS: BP 170/79; PULSE 71; RESP 18; TEMP 36.7; O2SAT 94; BMI 23.9
--- NOTE | 2023-01-04 12:47 | ED.GENADULT ---
HPI - General Adult General Chief complaint: Extremity Problem Stated complaint: Bilateral leg pain Time Seen by Provider: 01/04/23 19:01 Source: patient and family Mode of arrival: ambulatory History of Present Illness HPI narrative: 77-year-old male with history of diabetes and chronic venous stasis who presents with bilateral lower extremity swelling and warmth and mild erythema, he states he has a history of ulcers and has been to the wound care center a couple of times. He denies any fevers or chills or shortness of breath. Related Data Home Medications Medication Instructions Recorded Confirmed cholecalciferol (vitamin D3) 25 25 mcg PO DAILY 06/21/20 12/11/22 mcg (1,000 unit) capsule cyanocobalamin (vitamin B-12) 1,000 mcg PO DAILY 06/21/20 12/11/22 1,000 mcg capsule Previous Rx's Medication Instructions Recorded Large Gauze Pads CURAD 4 x 4 in #150 ea 11/02/21 hydrocortisone 2.5 % topical cream 1 appl topical BID PRN skin 02/13/22 irritation #30 grams albuterol sulfate 90 mcg/actuation 2 puff inhalation Q6H PRN 05/11/22 aerosol inhaler (Ventolin HFA) bronchospasm #8.5 grams budesonide-formoterol HFA 160 2 puff inhalation Q12H #3 ea 05/11/22 mcg-4.5 mcg/actuation aerosol inhaler (Symbicort) clopidogrel 75 mg tablet 75 mg PO DAILY #90 tabs 05/11/22 glimepiride 2 mg tablet 2 mg PO QAM #90 tabs 05/11/22 linagliptin 5 mg tablet (Tradjenta) 5 mg PO DAILY #90 tabs 05/11/22 metoprolol succinate 100 mg 100 mg PO DAILY 90 days #90 tabs 05/11/22 tablet,extended release 24 hr rosuvastatin 20 mg tablet 20 mg PO DAILY #90 tabs 05/11/22 tramadol 50 mg tablet 50 mg PO Q8H PRN pain 90 days #270 07/03/22 tabs empagliflozin 10 mg tablet 10 mg PO DAILY #30 tabs 11/13/22 (Jardiance) amlodipine 10 mg tablet 10 mg PO DAILY #30 tabs 12/11/22 gabapentin 100 mg capsule 100 mg PO BEDTIME #90 caps 12/25/22 cephalexin 500 mg capsule 500 mg PO BID 5 days #10 caps 01/04/23 doxycycline monohydrate 100 mg 100 mg PO BID 5 days #10 caps 01/04/23 capsule Allergies Allergy/AdvReac Type Severity Reaction Status Date / Time lisinopril AdvReac Intermediate hyperkalemi Unverified 12/11/22 19:22 a Shellfish Allergy Mild NOT Uncoded 12/11/22 13:15 APPLICABLE Review of Systems Review of Systems: Pertinent positives and negatives as stated in [facility] Past Medical History Source: nursing notes reviewed Medical History Ischemic cardiomyopathy Essential hypertension Colon cancer Type 2 diabetes mellitus with hyperglycemia Hypercholesterolemia Diabetic nephropathy Vitamin D deficiency Peripheral vascular disease Coronary artery disease Generalized osteoarthritis Asthma Surgical History History of vascular surgery S/P sclerotherapy of varicose veins Family History Family History Father Hypertension Mother CVD (cardiovascular disease) Hypertension Maternal Uncle Prostate cancer Social History Social History Housing: House Alcohol intake: former Patient Tobacco Use Status: Never used Tobacco e-Cigarette/Vaping Use: Never Used Second Hand Smoke Exposure: No service: Yes Current occupational status: retired and disabled Current occupational exposures/hazards: No Cognitive needs: No Hearing needs: No Vision needs: No Physical Exam ED Vital Signs: Vital Signs - 24 hr 01/04/23 12:47 01/04/23 17:40 Temperature 98.1 F 97.2 F Pulse Rate 71 69 Respiratory Rate 18 18 Blood Pressure 170/79 H 154/63 H Pulse Oximetry 94 96 Oxygen Delivery Method Room Air Room Air BMI result Body Mass Index 23.9 VITAL SIGNS: Reviewed. GENERAL: Well developed, well nourished, in no acute distress. HEAD: Normocephalic/atraumatic EYES: PERRLA, EOMI EARS: Ext canals without abnormality NOSE: Nares patent bilateral OROPHARYNX: no oral lesions noted, posterior pharynx clear NECK: Supple, no adenopathy LUNGS: Normal breath sounds. No adventitious sounds or accessory muscle use. SpO2<96> CARDIOVASCULAR: Regular rate and rhythm without noted murmurs, no JVD but bilateral 1 to 2+ pitting edema in the lower extremity ABDOMEN: Soft, non-tender, non-distended with bowel sounds. MUSCULOSKELETAL: No tenderness, deformities, or effusions noted on gross inspection. EXTREMITIES: No cyanosis, clubbing or edema. BILATERAL LOWER EXTREMITIES: There is significant warmth noted to the bilateral lower extremities in addition to 1 to 2+ pitting edema and obvious venous stasis dermatitis but there is erythema without any evidence of nonhealing ulcers at this time. Pulses are palpable bilaterally and symmetrical SKIN: Inspection of the skin reveals no rashes NEUROLOGIC: Alert and oriented x 4. Strength and sensation to light touch were grossly intact x 4. Course Course Course Narrative: RME: 77yo M w/PMHx female cardiomyopathy, diabetes, HLD, PVD, CAD, asthma, OA, presenting to the ED complaining of bilateral LE pain and infection x 2 weeks. denies drainage, fever, SOB +B/L LE pitting edema and erythema w/warmth. Ankles/feet not evaulated in triage Labs, CXR ordered Full HPI, ROS and PE to be performed by primary ED provider. Medical Decision Making Medical Decision Making MDM Narrative: 77-year-old male with history and clinical presentation, DDX: Less likely felt to be a CHF exacerbation as patient does not present with complaints of dyspnea or orthopnea, suspect that this may be diabetic dermatitis versus cellulitis. Although patient has no fever or chills. Reviewed all investigations and hematologic indices are negative for leukocytosis, there is a chronic normocytic anemia without thrombocytopenia. Coagulation studies are within normal limits. Chemistry indices do not demonstrate and TRAVON nor is there evidence of electrolyte or liver enzyme abnormalities. BNP is noted to be 46 and chest x-ray does not demonstrate any evidence of pulmonary congestion or an infiltrate and otherwise my interpretation is in agreement with radiology's impression. Calcium is noted to be mildly elevated and is chronically stable. My interpretation is that patient has a combination of venous stasis/diabetic dermatitis but there may be mild cellulitis involved given the warmth and erythema on clinical exam. I applied Raul bandages to bilateral lower extremities to facilitate compression and some alleviation of discomfort. Patient will be started on antibiotics and provided with a referral to the Wound Care Center. Differential Diagnosis Differential Diagnoses: The differential diagnosis associated with the presentation includes Please see the discussion above Admission/Observation Consideration of admission/observation: Escalation of care including admission/observation considered Please see the discussion above Lab Data MDM Lab Attestation statement: I reviewed the patient's lab results. Please see the discussion above 01/04/23 13:11 01/04/23 13:11 Labs: Lab Results 01/04/23 Range/Units 13:11 WBC 8.9 (4.8-10.8) X10*3/uL RBC 4.44 L (4.60-5.80) X10*6/uL Hgb 13.3 L (14.0-18.0) g/dl Hct 40.9 L (42.0-52.0) % MCV 92.1 (80.0-98.0) fL MCH 30.0 (27.0-33.0) pg MCHC 32.5 (31.0-36.0) g/dl RDW 13.9 (11.0-16.0) % Plt Count 162 (160-400) X10*3/uL MPV 10.9 (9.4-12.4) fL Immature Gran % (Auto) 0.6 H (0.0-0.4) % Neut % (Auto) 79.2 H (45-73) % Lymph % (Auto) 10.4 L (20-40) % [place] % (Auto) 8.1 (2-11) % Eos % (Auto) 1.1 (0-4) % Baso % (Auto) 0.6 (0-2) % Lymph # (Auto) 0.9 L (1.2-4.9) X10*3/uL [place] # (Auto) 0.7 (0.1-1.2) X10*3/uL Eos # (Auto) 0.1 (0.0-0.4) X10*3/uL Baso # (Auto) 0.1 (0.0-0.2) X10*3/uL Abs Immat Gran (auto) 0.05 H (0.00-0.03) X10*3/uL Absolute Neuts (auto) 7.1 (2.0-8.3) x10*3/uL Absolute Nucleated RBC 0.000 (0.0-0.012) X10*3/uL Nucleated RBC % (auto) 0.0 (0.0-0.2) /100WBC PT 11.8 (11.1-13.3) SEC INR 1.0 (0.9-1.1) Sodium 141 (135-145) mmol/L Potassium 4.9 (3.3-5.1) mmol/L Chloride 107 (96-108) mmol/L Carbon Dioxide 24 (22-29) mmol/L Anion Gap 15 (12-20) BUN 30 H (9-16) mg/dL Creatinine 1.40 (0.5-1.4) mg/dL Estim Creat Clear Calc 44.1 Estimated GFR 49 Random Glucose 140 H (60-115) mg/dL Calcium 10.4 H (8.4-10.2) mg/dL Magnesium 2.3 (1.6-2.6) mg/dL Total Bilirubin 0.8 (0.0-1.0) mg/dL Direct Bilirubin 0.3 (0.0-0.5) mg/dL AST 33 (5-37) U/L ALT 30 (0-40) U/L Alkaline Phosphatase 98 (39-117) U/L B-Natriuretic Peptide 46 (<100) pg/mL Total Protein 7.9 (6.5-8.0) g/dL Albumin 4.0 (3.5-5.0) g/dL Radiology Impression Discussion of test interpretation with radiology: I have reviewed the radiologist's reading. Radiologist Impression: Please see the discussion above External Record Review External record reviewed: Outpatient record, Prior outpatient labs and Prior outpatient radiology Chronic Conditions Patient?s care impacted by: Diabetes and Hypertension Discharge Plan Discharge Clinical Impression: Cellulitis, Venous stasis dermatitis Patient Disposition: Home, Self-Care Instructions: Cellulitis (ED), Venous Insufficiency (DC) Additional Instructions: 1. Reanudar todos los medicamentos caseros seg?n lo recetado. 2. Complete todo el ciclo de antibi?ticos. 3. A continuaci?n se le proporciona ray derivaci?n para un seguimiento con el [facility]. 4. Llame al consultorio de kate m?dico de atenci?n primaria por la ma?erika. Regrese a la alex de emergencias si los s?ntomas empeoran. 1. Resume all home medications as prescribed. 2. Complete the entire course of antibiotics. 3. A referral to follow-up with the Wound Care Center has been provided to you below. 4. Please call the office of your primary care doctor in the morning. Return to the ER for any worsening symptoms. Prescriptions: New doxycycline monohydrate 100 mg capsule 100 mg PO BID 5 Days Qty: 10 0RF cephalexin 500 mg capsule 500 mg PO BID 5 Days Qty: 10 0RF No Action clopidogrel 75 mg tablet 75 mg PO DAILY Qty: 90 1RF albuterol sulfate [Ventolin HFA] 90 mcg/actuation HFA aerosol inhaler 2 puff inhalation Q6H PRN (Reason: bronchospasm) Qty: 8.5 0RF budesonide-formoterol [Symbicort] 160-4.5 mcg/actuation HFA aerosol inhaler 2 puff inhalation Q12H Qty: 3 3RF glimepiride 2 mg tablet 2 mg PO QAM Qty: 90 2RF metoprolol succinate 100 mg tablet extended release 24 hr 100 mg PO DAILY 90 Days Qty: 90 3RF rosuvastatin 20 mg tablet 20 mg PO DAILY Qty: 90 2RF Tradjenta 5 mg tablet 5 mg PO DAILY Qty: 90 2RF tramadol 50 mg tablet 50 mg PO Q8H PRN (Reason: pain) 90 Days Qty: 270 1RF Jardiance 10 mg tablet 10 mg PO DAILY Qty: 30 2RF amlodipine 10 mg tablet 10 mg PO DAILY Qty: 30 3RF gabapentin 100 mg capsule 100 mg PO BEDTIME Qty: 90 2RF (DME) Large Gauze Pads CURAD 4 x 4 in See Rx Instructions .Route .MEDSUPPLY Qty: 150 11RF Rx Instructions: As directed cyanocobalamin (vitamin B-12) 1,000 mcg capsule 1,000 mcg PO DAILY cholecalciferol (vitamin D3) 25 mcg (1,000 unit) capsule 25 mcg PO DAILY hydrocortisone 2.5 % cream 1 appl topical BID PRN (Reason: skin irritation) Qty: 30 0RF Referrals: [facility] [Provider Group] Roel,Allen Naranjo MD [Primary Care Provider] - Print Language: French
[2023-01-04 13:17] LABS: MANUAL DIFF FLAG NO
[2023-01-04 13:18] LABS: Basophils Absolute Auto 0.1 X10*3/uL (0.0-0.2); Basophils Percent Auto 0.6 % (0-2); Eosinophils Absolute Auto 0.1 X10*3/uL (0.0-0.4); Eosinophils Percent Auto 1.1 % (0-4); Hematocrit 40.9 % (42.0-52.0); Hemoglobin 13.3 g/dl (14.0-18.0); Imm Gran Abs Auto 0.05 X10*3/uL (0.00-0.03); Imm Gran Pct Auto 0.6 % (0.0-0.4); Lymphocytes Absolute Auto 0.9 X10*3/uL (1.2-4.9); Lymphocytes Percent Auto 10.4 % (20-40); Mean Corpuscular HGB Conc 32.5 g/dl (31.0-36.0); Mean Corpuscular Volume 92.1 fL (80.0-98.0); Mean Platelet Volume 10.9 fL (9.4-12.4); Monocytes Absolute Auto 0.7 X10*3/uL (0.1-1.2); Monocytes Percent Auto 8.1 % (2-11); Neutrophils Absolute Auto 7.1 x10*3/uL (2.0-8.3); Neutrophils Percent Auto 79.2 % (45-73); Platelet Count 162 X10*3/uL (160-400); Red Blood Count 4.44 X10*6/uL (4.60-5.80); Red Cell Distribution Width 13.9 % (11.0-16.0); White Blood Count 8.9 X10*3/uL (4.8-10.8)
[2023-01-04 13:28] LABS: Prothrombin Time 11.8 SEC (11.1-13.3)
[2023-01-04 13:33] LABS: Alanine Aminotransferase 30 U/L (0-40); Alkaline Phosphatase 98 U/L (39-117); Anion Gap 15 (12-20); Aspartate Amino Transferase 33 U/L (5-37); Bilirubin Direct 0.3 mg/dL (0.0-0.5); Bilirubin Total 0.8 mg/dL (0.0-1.0); Blood Urea Nitrogen 30 mg/dL (9-16); Calcium 10.4 mg/dL (8.4-10.2); Carbon Dioxide 24 mmol/L (22-29); Chloride 107 mmol/L (96-108); Creatinine Clr Calc Pharmacy 44.1; Estimated Glomerular Filt Rate 49; Glucose Random 140 mg/dL (60-115); Magnesium 2.3 mg/dL (1.6-2.6); Potassium 4.9 mmol/L (3.3-5.1); Sodium 141 mmol/L (135-145); Total Protein 7.9 g/dL (6.5-8.0)
[2023-01-04 13:37] LABS: B Type Natriuretic Peptide 46 pg/mL (<100)
[2023-01-04 17:40] VITALS: BP 154/63; PULSE 69; RESP 18; TEMP 36.2; O2SAT 96
--- NOTE | 2023-01-04 17:42 | PC.NURSE ---
VERONICA LOWER LEG WOUNDS PER PT.
--- NOTE | 2023-01-04 19:22 | PC.NURSE ---
Dr. Munoz to bedside for primary eval; andria bandages applied to BLE. at bedside. awaiting d/c.
[2023-01-04] MEDS: Doxycycline Monohydrate 100 MG CAPSULE PO (19:40)
[2023-01-04] MEDS: cephALEXin 500 MG CAPSULE PO (19:40)
== END 2023-01-04 19:43 | disposition home or self-care (01) ==
LOC: HO.ED 19:31
PROVIDERS: Physician Assistant; Emergency Provider Student in an Organized Health Care Education/Training Program; PCP Internal Medicine
DX: L03.116 Cellulitis of left lower limb (principal); I83.12 Varicose veins of left lower extremity with inflammation; L03.115 Cellulitis of right lower limb; I83.11 Varicose veins of right lower extremity with inflammation; M79.605 Pain in left leg; M79.604 Pain in right leg; R06.02 Shortness of breath; R60.0 Localized edema; D64.9 Anemia, unspecified; I10 Essential (primary) hypertension; E11.9 Type 2 diabetes mellitus without complications; E78.00 Pure hypercholesterolemia, unspecified; Z79.899 Other long term (current) drug therapy
CPT/HCPCS: 36415; 71046; 80048; 80076; 83735; 83880; 85025; 85610; 99283

== ENCOUNTER 2023-02-12 12:54 | Outpatient (RCR) | payer MEDICARE, MEDICAID, SELFPAY | END 2023-02-12 17:00 | disposition home or self-care (01) | LOC: HO.WCC 12:54 | PROVIDERS: PCP Internal Medicine; Visit Provider Surgery | DX: Z09 Encounter for follow-up examination after completed treatment for conditions other than malignant neoplasm (principal); E11.51 Type 2 diabetes mellitus with diabetic peripheral angiopathy without gangrene; I87.2 Venous insufficiency (chronic) (peripheral); L30.9 Dermatitis, unspecified; I10 Essential (primary) hypertension; I25.5 Ischemic cardiomyopathy; I25.2 Old myocardial infarction; Z86.718 Personal history of other venous thrombosis and embolism; Z79.01 Long term (current) use of anticoagulants; Z79.84 Long term (current) use of oral hypoglycemic drugs; Z87.2 Personal history of diseases of the skin and subcutaneous tissue | CPT/HCPCS: 99213 ==

== ENCOUNTER 2023-02-15 12:36 | Outpatient (AMB) | payer MEDICARE, MEDICAID, SELFPAY ==
--- NOTE | 2023-02-15 12:51 | A.OFFVIS_ITS ---
Intake Intake Visit Reasons: incomplete bladder emptying and BPH Intake Note: NEW Patient presents today to established treatment for BPH: Meds- None Allergies to Antibiotic- No Known Allergies Blood Thinner- None PVR- 23 mL Patient Symptoms: None Spar Finisher Required: No Accompanied by: Self / Same As Patient Allergies lisinopril Adverse Reaction (Intermediate, Verified 02/15/23 13:15) hyperkalemia Shellfish Allergy (Mild, Uncoded 02/15/23 13:15) NOT APPLICABLE Medication List - Last Reconciled 02/15/23 by Puneet Simeon MD albuterol sulfate 90 mcg/actuation (Ventolin HFA) 2 puffs inhalation Q6H PRN amlodipine 10 mg PO DAILY budesonide-formoterol 160-4.5 mcg/actuation (Symbicort) 2 puffs inhalation Q12H cephalexin 500 mg PO BID 5 days cholecalciferol (vitamin D3) 25 mcg PO DAILY clopidogrel 75 mg PO DAILY cyanocobalamin (vitamin B-12) 1,000 mcg PO DAILY doxycycline monohydrate 100 mg PO BID 5 days empagliflozin (Jardiance) 10 mg PO DAILY finasteride (Proscar) 5 mg PO DAILY 90 days gabapentin 100 mg PO BEDTIME glimepiride 2 mg PO QAM hydrocortisone 2.5% 1 appl topical BID PRN [Large Gauze Pads CURAD 4 x 4 in As directed] linagliptin (Tradjenta) 5 mg PO DAILY lisinopril 20 mg PO DAILY metoprolol succinate ER 100 mg PO DAILY 90 days rosuvastatin 20 mg PO DAILY tramadol 50 mg PO Q8H PRN 90 days HPI HPI Comments History of Present Illness Details Michael is a 77-year-old male who presents today to the office to establish as a new patient for an evaluation of incomplete bladder emptying and BPH. PMH- DM, colon cancer s/p chemo, CAD, PVD. He complains of nocturia x 3, daytime urinary frequency. Denies dysuria He completed his AUA symptoms score questionnaire resulting in 18. He denies any history of cigarette smoking. I have reviewed the lab results from revealed creatinine 1.4 and BUN was 10. I have reviewed Bladder US 12/28/22- BLADDER: Partially distended, limiting evaluation. Bilateral ureteral jets are demonstrated. Prevoid bladder volume is 138 mL. Postvoid bladder volume is 68.8 mL. Prostate volume is 52.5 mL. Enlarged, heterogeneous lobulated prostate gland with echogenic foci characteristic of coarse calcifications. Evaluation today?UA?Leukocytes: negative; proteinuria: 2 +; blood trace; bladder scan PVR: 23 mL. Plan: Finasteride 5 mg daily was ordered. Follow-up in 6 weeks for office cystoscopy at that time, PSA in 4 months [facility] Medical History Ischemic cardiomyopathy Essential hypertension Colon cancer Type 2 diabetes mellitus with hyperglycemia Hypercholesterolemia Diabetic nephropathy Vitamin D deficiency Peripheral vascular disease Coronary artery disease Generalized osteoarthritis Asthma Surgical History History of vascular surgery S/P sclerotherapy of varicose veins Family History Father Hypertension Mother CVD (cardiovascular disease) Hypertension Maternal Uncle Prostate cancer Social History Housing: House Alcohol intake: former Patient Tobacco Use Status: Never used Tobacco e-Cigarette/Vaping Use: Never Used Second Hand Smoke Exposure: No Advance Directives Date on File: 02/03/21 service: Yes Current occupational status: retired and disabled Current occupational exposures/hazards: No Cognitive needs: No Hearing needs: No Vision needs: No Questionnaire AUA Symptom Score AUA Incomplete emptying - It does not feel like I empty my bladder all the way.: 5 - Almost always Frequency - I have to go again less than two hours after I finish urinating.: 5 - Almost always Intermittency - I stop and start again several times when I urinate.: 5 - Almost always Urgency - It is hard to wait when I have to urinate.: 0 - Not at all Weak stream - I have a weak urinary stream.: 0 - Not at all Straining - I have to push or strain to begin urination.: 0 - Not at all Nocturia - I get up to urinate after I go to bed until the time I get up in the morning.: 3 times AUA Symptom Score: 18 Quality of life due to urinary symptoms: If you were to spend the rest of your life with your urinary condition the way it is now, how would you feel about that?: Unhappy Source: Magno BATISTA, Cruz ROSALES Jr, O'Michelle MP, et al, and the Measurement Committee of the [employer]. The [place] [employer] symptom index for benign prostatic hyperplasia. J Urol. 1992; 148: 9368-8379. Copyright 1992 [place] [employer] Review of Systems Const All systems reviewed & are unremarkable except as noted in HPI and below Reports no additional complaints Eyes Reports no additional complaints ENT Reports no additional complaints Card Denies dyspnea Resp Denies cough and Denies dyspnea GI Reports no additional complaints Musc Reports no additional complaints Skin/Breast Denies rash and Denies unusual bruising Neuro Reports no additional complaints Psych Reports no additional complaints Endo Reports no additional complaints Mario/Lymph Reports no additional complaints Aller/Immun Reports no additional complaints Physical Exam Const General: healthy appearing, no acute distress and well developed Orientation/consciousness: patient oriented x3 HEENT Head: Yes normocephalic and Yes atraumatic Eyes Conjunctivae: conjunctivae normal Neck Neck: Yes normal visual inspection Chest Chest palpation & inspection: normal inspection of the chest Resp Effort & Inspection: normal respiratory effort Cardio Rate: regular rate GI Inspection: Yes normal to inspection Palpation (GI): Soft to palpation Skin General skin exam: no rashes or lesions noted Neuro General: patient oriented x3 Extrem General: No pedal edema Psych Appearance: grossly normal Affect: normal affect Office Procedures Post Void Residual Post Residual Void Post Void Residual (PVR): 23 [id number] Void Residual by ultrasound Results AMB Urinalysis, Automated UA Leukoctes 0 Alicia/uL Last Edit by JINNY Granados on 02/15/23 13:18 UA Nitrite Negative Last Edit by JINNY Granados on 02/15/23 13:18 UA Urobilinogen 0.2 mg/dL Last Edit by JINNY Granados on 02/15/23 13:1 8 UA Protein 100 mg/dL Last Edit by Annabelle Lai, A on 02/15/23 13:18 2+ Annabelle Lai 02/15/23 13:18 UA pH 5.5 Last Edit by Annabelle Ming, A on 02/15/23 13:18 UA Blood 10 Umesh/uL Last Edit by Maryjose Lai, A on 02/15/23 13:18 UA Specific [place] 1.020 Last Edit by Annabelle Lai, A on 02/15/23 13: 18 UA Ketone Negative Last Edit by Annabelle Lai, A on 02/15/23 13:18 UA Bilirubin 0 mg/dL Last Edit by Annabelle Lai A on 02/15/23 13:18 UA Glucose 1000 mg/dL Last Edit by Annabelle Lai, A on 02/15/23 13:18 3+ Annabelle Lai 02/15/23 13:18 Results Reviewed Results Reviewed: Laboratory Last Values Urine pH (Auto) 5.5 02/15/23 13:16 Specific [place] (Auto) 1.020 02/15/23 13:16 Urine Protein (Auto) 100 mg/dL 02/15/23 13:16 Glucose (UA)(Auto) 1000 mg/dL 02/15/23 13:16 Urine Ketones (Auto) Negative 02/15/23 13:16 Urine Blood (Auto) 10 Umesh/uL 02/15/23 13:16 Urine Nitrite (Auto) Negative 02/15/23 13:16 Urine Bilirubin (Auto) 0 mg/dL 02/15/23 13:16 Urine Urobilinogen (Auto) 0.2 mg/dL 02/15/23 13:16 Leukocyte Esterase (Auto) 0 Alicia/uL 02/15/23 13:16 Date of Service: 12/28/22 EXAMINATION: US PELVIS LIMITED (BLADDER) CLINICAL INFORMATION: Frequency of micturition. COMPARISON: CT abdomen and pelvis without and with contrast dated 07/19/2020. Ultrasound abdomen complete dated 07/11/2010 and 09/22/2005. FINDINGS: BLADDER: Partially distended, limiting evaluation. Bilateral ureteral jets are demonstrated. Prevoid bladder volume is 138 mL. Postvoid bladder volume is 68.8 mL. Prostate volume is 52.5 mL. Enlarged, heterogeneous lobulated prostate gland with echogenic foci characteristic of coarse calcifications. IMPRESSION: Enlarged, heterogeneous lobulated prostate gland. Postvoid bladder volume 68.8 mL Assessment & Plan Assessment & Plan (1) Frequency of micturition: Code(s): R35.0 - Frequency of micturition (2) BPH (benign prostatic hyperplasia): Code(s): N40.0 - Benign prostatic hyperplasia without lower urinary tract symptoms (3) Feeling of incomplete bladder emptying: Code(s): R39.14 - Feeling of incomplete bladder emptying Plan Finasteride 5 mg daily was ordered. Follow-up in 6 weeks for office cystoscopy at that time, PSA in 4 months Orders: Orders AMB Urinalysis Automated 02/15/23 Z13.9 - Encounter for screening, unspecified AMB Post Void Residual by ultrasound 02/15/23 N39.8 - Other specified disorders of urinary system PSA,Total (Free>4and<10) 2 Months N40.0 - Benign prostatic hyperplasia without lower urinary tract symptoms Medications: New finasteride (Proscar) 5 mg PO DAILY 90 days 90 tabs 3RF C61 - Malignant neoplasm of prostate Patient Instructions: The patient had an opportunity to ask questions regarding treatment plan. All questions were answered. Imaging, Laboratory studies and physical exam results were discussed and reviewed in detail. No major barriers to understanding were identified. The patient expressed understanding and agreement with the above treatment plan. The patient is aware they should contact our office by phone for worsening of their current condition or the appearance of new symptoms. Compliance is encouraged with any medications and followup testing that is ordered. It is a privilege to be allowed the opportunity to participate in the urologic care of your patient. If you have any questions or concerns regarding treatment for the above conditions please do not hesitate to contact me. The office telephone contact is [phone]. This note is constructed in part using voice recognition software. While every effort has been made to ensure accuracy animal anatomist errors may have been included. Yours sincerely, Puneet Simeon MD Quality Reporting (2019) Benign Prostatic Hyperplasia ([facility] 771) AUA symptom score: 18 Quality of life due to urinary symptoms: If you were to spend the rest of your life with your urinary condition the way it is now, how would you feel about that?: Unhappy Coding Level of Care Code New Pt Level 4 (45577) Diagnoses Frequency of micturition R35.0 BPH (benign prostatic hyperplasia) N40.0 Feeling of incomplete bladder emptying R39.14 CPT Codes Post Residual Void - PVR CPT Code: 28796-Npqo Void Residual by ultrasound ([id number])
== END 2023-02-15 13:39 | disposition home or self-care (01) ==
PROVIDERS: PCP Internal Medicine; Visit Provider Urology
DX: R35.0 Frequency of micturition (principal); N40.0 Benign prostatic hyperplasia without lower urinary tract symptoms; R39.14 Feeling of incomplete bladder emptying
CPT/HCPCS: 99204

== ENCOUNTER → 2023-02-15 12:36 | Outpatient (BNVA) | payer MEDICARE, MEDICAID, SELFPAY | PROVIDERS: PCP Internal Medicine; Visit Provider Urology | DX: N40.1 Benign prostatic hyperplasia with lower urinary tract symptoms (principal); R35.0 Frequency of micturition; R39.14 Feeling of incomplete bladder emptying | CPT/HCPCS: 51798; 81003; 99202 ==

== ENCOUNTER 2023-03-26 12:12 | Outpatient (REF) | payer MEDICARE, MEDICAID, SELFPAY | END 2023-03-26 12:13 | disposition home or self-care (01) | LOC: HO.10HDL 12:12 | PROVIDERS: Visit Provider Urology | DX: N40.0 Benign prostatic hyperplasia without lower urinary tract symptoms (principal); Z12.5 Encounter for screening for malignant neoplasm of prostate | CPT/HCPCS: 36415; 84153 ==

== ENCOUNTER 2023-03-26 12:34 | Outpatient (AMB) | payer MEDICARE, MEDICAID, SELFPAY ==
--- NOTE | 2023-03-26 12:39 | MHC.PC.OV ---
Vital Signs 03/26/23 12:42 Height 5 ft 8 in Weight 165 lb 2.02 oz BMI 25.1 BP 152/78 H Blood Pressure Location Lt brachial Position Sitting Pulse 117 H Pulse Source Pulse Oximeter Pulse Oximetry (%) 96 Oxygen Delivery Method Room Air Intake Visit Reasons: 3 month f/u Allergies finasteride Adverse Reaction (Intermediate, Verified 03/26/23 13:44) rash lisinopril Adverse Reaction (Intermediate, Verified 03/26/23 12:48) hyperkalemia Shellfish Allergy (Mild, Uncoded 03/26/23 12:48) NOT APPLICABLE Tobacco use date assessed: 03/26/23 Fall risk assessment: No Falls in past year (pt states loss of balance ) Last assessed Fall Risk: 03/26/23 Dental Screening Dental Screen Date: 03/26/23 HPI 3 month f/u HPI Details 77-year-old male with controlled diabetes mellitus hypercholesterolemia coronary artery disease chronic kidney disease coming in for follow-up. Last seen in November 2022. Review of the notes has been following up with urology had incomplete bladder emptying and BPH placed on finasteride 5 mg once a day and planned cystoscopy. ER visit December having chronic venous stasis with bilateral lower extremity ulcerations placed on antibiotics and goes to wound care. [facility] Medical History Ischemic cardiomyopathy Essential hypertension Colon cancer Type 2 diabetes mellitus with hyperglycemia Hypercholesterolemia Diabetic nephropathy Vitamin D deficiency Peripheral vascular disease Coronary artery disease Generalized osteoarthritis Asthma Surgical History History of vascular surgery S/P sclerotherapy of varicose veins Family History Father Hypertension Mother CVD (cardiovascular disease) Hypertension Maternal Uncle Prostate cancer Social History Housing: House Alcohol intake: former Patient Tobacco Use Status: Never used Tobacco e-Cigarette/Vaping Use: Never Used Second Hand Smoke Exposure: No Advance Directives Date on File: 02/03/21 service: Yes Current occupational status: retired and disabled Current occupational exposures/hazards: No Cognitive needs: Yes Hearing needs: No Vision needs: No Questionnaire Thrive Questionnaire Date Thrive assessed: 05/22/22 AUDIT C Alcohol Use Questionnaire (AUDIT-C) 1. How often do you have a drink containing alcohol?: Never 3. How often do you have six or more drinks on one occasion?: Never Total Score: 0 Score Reviewed/Action Taken: No BALJIT-7 AMB Questionnaire BALJIT-7 Date BALJIT - 7 assessed: 05/22/22 Source: Developed by Drs. Leonel King, Sherry Rosales, Herman Rodriguez and colleagues, with an educational sandi from [employer]. Physical exam (Primary Care) Vital Signs: Last Vital Signs Pulse 117 H 03/26/23 12:42 BP 152/78 H 03/26/23 12:42 Pulse Ox 96 03/26/23 12:42 Oxygen Delivery Method Room Air 03/26/23 12:42 BMI result Body Mass Index 25.1 Tobacco/Smoking Status: Tobacco use Status Tobacco use date assessed 03/26/23 03/26/23 12:52 Patient Tobacco Use Status Never used Tobacco 03/26/23 12:39 Tobacco use type 02/27/23 15:19 e-Cigarette/Vaping Use Never Used 03/26/23 12:39 Thrive Assessment: Date of Thrive Assessment Date Thrive assessed 05/22/22 03/26/23 12:39 Const General: alert; No acute distress Eyes Conjunctivae: conjunctivae normal Resp Auscultation: clear to auscultation bilaterally Cardio Rate: regular rate Rhythm: regular rhythm GI Inspection: Yes normal to inspection Extrem General: Yes normal to inspection and No edema Results AMB Hemoglobin A1c AMB Hemoglobin A1c 6.4 % Last Edit by JINNY Pappas on 03/26/23 13:17 Assessment and Plan Assessment & Plan (1) Type 2 diabetes mellitus with hyperglycemia: Comment: Dr. Villagomez Code(s): E11.65 - Type 2 diabetes mellitus with hyperglycemia Qualifiers: Diabetes mellitus mcc insulin use: without termite control technician use Qualified Code(s): E11.65 - Type 2 diabetes mellitus with hyperglycemia Plan: Decrease the amount of carbohydrate intake, pasta, bread, rice and potatoes are all sugar and that is aside from all the sweet stuff, remember that fruits are good but they are Sweet also. Hemoglobin A1c goal of less than 7.0 continue with Jardiance 10 mg once a day glimepiride 2 mg in morning Tradjenta (2) Coronary artery disease: Comment: Stent placement 2003 [place] October 2006 echocardiogram November 2016 EF 40-45% ischemic cardiomyopathy myocardial perfusion January 2017 is ejection fraction 40% Code(s): I25.10 - Atherosclerotic heart disease of kaw coronary artery without angina pectoris Qualifiers: Coronary Disease-Associated Artery/Lesion type: kaw artery [place] vs. transplanted heart: kaw heart Associated angina: without angina Qualified Code(s): I25.10 - Atherosclerotic heart disease of kaw coronary artery without angina pectoris Plan: Control the cholesterol, weight, blood pressure, diabetes continue with clopidogrel 75 mg once a day (3) Hypercholesterolemia: Code(s): E78.00 - Pure hypercholesterolemia, unspecified Plan: Avoid fried foods, chicken skin, eggs, butter margarine, pastries and meat. Be it pork or beef they have a lot of cholesterol LDL goal of less than 70 and triglyceride of less than 150 on rosuvastatin 20 mg once a day August 2022 last blood work (4) Essential hypertension: Code(s): I10 - Essential (primary) hypertension Plan: Continue with blood pressure medication. Decrease salt intake and exercise continue with metoprolol 100 mg once a day lisinopril 20 mg once a day and amlodipine 10 mg once a day (5) Venous stasis dermatitis: Code(s): I87.2 - Venous insufficiency (chronic) (peripheral) Plan: When sitting down elevate the legs, exercise, and support stockings follows up with wound care. discssued about wet dry dressing and bandage, rebandage placed L leg. referral to nephology- amlodipine recently increased by Cardiology concern that the side effect of swelling of the legs. Which has been a problem. On the other hand hyperkalemia occurred with MERLINE inhibitors.. Nephrology referral (6) BPH (benign prostatic hyperplasia): Code(s): N40.0 - Benign prostatic hyperplasia without lower urinary tract symptoms Plan: Patient follows up with urology and planned cystoscopy Orders: Orders AMB Hemoglobin A1c Today Z13.9 - Encounter for screening, unspecified Referrals Nephrology Referral N18.9 - Chronic kidney disease, unspecified Medications: Discontinued finasteride (Proscar) Discontinued Reason: Change Referral Type 5 mg PO DAILY 90 days 90 tabs 3RF C61 - Malignant neoplasm of prostate Coding Level of Care Code Est Pt Level 4 (75540) Diagnoses Type 2 diabetes mellitus with hyperglycemia, without long-term current use of insulin E11.65 Diabetes mellitus mcc insulin use: without termite control technician use Coronary artery disease involving kaw coronary artery of kaw heart without angina pectoris I25.10 Coronary Disease-Associated Artery/Lesion type: kaw artery [place] vs. transplanted heart: kaw heart Associated angina: without angina Hypercholesterolemia E78.00 Essential hypertension I10 Venous stasis dermatitis I87.2 BPH (benign prostatic hyperplasia) N40.0
[2023-03-26 12:42] VITALS: BP 152/78; PULSE 117; O2SAT 96; BMI 25.1
== END 2023-03-26 13:47 | disposition home or self-care (01) ==
PROVIDERS: PCP Internal Medicine; Visit Provider Internal Medicine
DX: E11.65 Type 2 diabetes mellitus with hyperglycemia (principal); E78.00 Pure hypercholesterolemia, unspecified; I12.9 Hypertensive chronic kidney disease with stage 1 through stage 4 chronic kidney disease, or unspecified chronic kidney disease; N18.32 Chronic kidney disease, stage 3b; I87.2 Venous insufficiency (chronic) (peripheral); N40.0 Benign prostatic hyperplasia without lower urinary tract symptoms
CPT/HCPCS: 83036; 99214

== ENCOUNTER 2023-04-05 13:16 | Outpatient (AMB) | payer MEDICARE, MEDICAID, SELFPAY ==
--- NOTE | 2023-04-05 13:29 | A.OFFVIS_ITS ---
Intake Intake Visit Reasons: 6 weeks cysto (set) Intake Note: Patient presents today for a Cystoscopy, patient has declined to proceed with the procedure: Meds- None Allergies to Antibiotic- No Known Allergies Blood Thinner- None Envelope Stuffer Required: No Accompanied by: Self / Same As Patient Allergies finasteride Adverse Reaction (Intermediate, Verified 04/16/23 14:09) rash lisinopril Adverse Reaction (Intermediate, Verified 04/16/23 14:09) hyperkalemia Shellfish Allergy (Mild, Uncoded 04/05/23 13:30) NOT APPLICABLE HPI HPI Comments History of Present Illness Details Michael is a 77-year-old male who presents today to the office for FU. He was initially evaluated on 02/15/23 for an evaluation of incomplete bladder emptying and BPH. He was started on proscar. He completed his AUA symptoms score questionnaire resulting in 18. He denies any history of cigarette smoking. 04/05/23-- FU states stopped the proscar because he got a rash. He declines cystoscopy for today PMH- DM, colon cancer s/p chemo, CAD, PVD. He complains of nocturia x 3, daytime urinary frequency. Denies dysuria I have reviewed the lab results from 01/04/2023 revealed creatinine 1.4 and BUN was 10. I have reviewed Bladder US 12/28/22- BLADDER: Partially distended, limiting evaluation. Bilateral ureteral jets are demonstrated. Prevoid bladder volume is 138 mL. Postvoid bladder volume is 68.8 mL. Prostate volume is 52.5 mL. Enlarged, heterogeneous lobulated prostate gland with echogenic foci characteristic of coarse calcifications. Plan: Alfuzosin 10 mg d/c proscar FU in 6 months, PSA prior PFS Medical History Ischemic cardiomyopathy Essential hypertension Colon cancer Type 2 diabetes mellitus with hyperglycemia Hypercholesterolemia Diabetic nephropathy Vitamin D deficiency Peripheral vascular disease Coronary artery disease Generalized osteoarthritis Asthma Surgical History History of vascular surgery S/P sclerotherapy of varicose veins Family History Father Hypertension Mother CVD (cardiovascular disease) Hypertension Maternal Uncle Prostate cancer Social History Housing: House Alcohol intake: former Patient Tobacco Use Status: Never used Tobacco e-Cigarette/Vaping Use: Never Used Second Hand Smoke Exposure: No Advance Directives Date on File: 02/03/21 service: Yes Current occupational status: retired and disabled Current occupational exposures/hazards: No Cognitive needs: Yes Hearing needs: No Vision needs: No Review of Systems Const All systems reviewed & are unremarkable except as noted in HPI and below Reports no additional complaints Eyes Reports no additional complaints ENT Reports no additional complaints Card Denies dyspnea Resp Denies cough and Denies dyspnea GI Reports no additional complaints Musc Reports no additional complaints Skin/Breast Denies rash and Denies unusual bruising Neuro Reports no additional complaints Psych Reports no additional complaints Endo Reports no additional complaints Mario/Lymph Reports no additional complaints Aller/Immun Reports no additional complaints Results AMB Urinalysis, Automated UA Leukoctes 0 Alicia/uL Last Edit by JINNY Granados on 04/05/23 13:49 UA Nitrite Negative Last Edit by JINNY Granados on 04/05/23 13:49 UA Urobilinogen 0.2 mg/dL Last Edit by JINNY Granados on 04/05/23 13:4 9 UA Protein 100 mg/dL Last Edit by JINNY Granados on 04/05/23 13:49 2+ Annabelle Lai 04/05/23 13:49 UA pH 6.0 Last Edit by JINNY Granados on 04/05/23 13:49 UA Blood 0 Umesh/uL Last Edit by JINNY Granados on 04/05/23 13:49 UA Specific [place] 1.025 Last Edit by JINNY Granados on 04/05/23 13: 49 UA Ketone Negative Last Edit by JINNY Granados on 04/05/23 13:49 UA Bilirubin 0 mg/dL Last Edit by JANA GranadosJameel on 04/05/23 13:49 UA Glucose 1000 mg/dL Last Edit by JANA GranadosJameel on 04/05/23 13:49 3+ Annabelle Lai 04/05/23 13:49 Results Reviewed Results Reviewed: Laboratory Last Values Urine pH (Auto) 6.0 04/05/23 13:48 Specific [place] (Auto) 1.025 04/05/23 13:48 Urine Protein (Auto) 100 mg/dL 04/05/23 13:48 Glucose (UA)(Auto) 1000 mg/dL 04/05/23 13:48 Urine Ketones (Auto) Negative 04/05/23 13:48 Urine Blood (Auto) 0 Umesh/uL 04/05/23 13:48 Urine Nitrite (Auto) Negative 04/05/23 13:48 Urine Bilirubin (Auto) 0 mg/dL 04/05/23 13:48 Urine Urobilinogen (Auto) 0.2 mg/dL 04/05/23 13:48 Leukocyte Esterase (Auto) 0 Alicia/uL 04/05/23 13:48 Assessment & Plan Assessment & Plan (1) Frequency of micturition: Code(s): R35.0 - Frequency of micturition (2) BPH (benign prostatic hyperplasia): Code(s): N40.0 - Benign prostatic hyperplasia without lower urinary tract symptoms (3) Feeling of incomplete bladder emptying: Code(s): R39.14 - Feeling of incomplete bladder emptying Plan Alfuzosin 10 mg d/c proscar FU in 6 months, PSA prior Consider cystoscopy at that time pending symptoms Orders: Orders AMB Urinalysis Automated 04/05/23 Z13.9 - Encounter for screening, unspecified Medications: New alfuzosin ER administer after the same meal each day 10 mg PO DAILY 30 tabs 5RF Patient Instructions: The patient had an opportunity to ask questions regarding treatment plan. All questions were answered. Imaging, Laboratory studies and physical exam results were discussed and reviewed in detail. No major barriers to understanding were identified. The patient expressed understanding and agreement with the above treatment plan. The patient is aware they should contact our office by phone for worsening of their current condition or the appearance of new symptoms. Compliance is encouraged with any medications and followup testing that is ordered. It is a privilege to be allowed the opportunity to participate in the urologic care of your patient. If you have any questions or concerns regarding treatment for the above conditions please do not hesitate to contact me. The office telephone contact is [phone]. This note is constructed in part using voice recognition software. While every effort has been made to ensure accuracy filter screen cleaner errors may have been included. Yours sincerely, Puneet Simeon MD Coding Level of Care Code Est Pt Level 4 (26475) Diagnoses Frequency of micturition R35.0 BPH (benign prostatic hyperplasia) N40.0 Feeling of incomplete bladder emptying R39.14
== END 2023-04-05 13:50 | disposition home or self-care (01) ==
PROVIDERS: PCP Internal Medicine; Visit Provider Urology
DX: R35.0 Frequency of micturition (principal); N40.0 Benign prostatic hyperplasia without lower urinary tract symptoms; R39.14 Feeling of incomplete bladder emptying
CPT/HCPCS: 99214

== ENCOUNTER → 2023-04-05 13:16 | Outpatient (BNVA) | payer MEDICARE, MEDICAID, SELFPAY | PROVIDERS: PCP Internal Medicine; Visit Provider Urology | DX: N40.0 Benign prostatic hyperplasia without lower urinary tract symptoms (principal); R35.0 Frequency of micturition; R39.14 Feeling of incomplete bladder emptying | CPT/HCPCS: 81003; 99212 ==

== ENCOUNTER 2023-04-16 14:00 | Outpatient (AMB) | payer MEDICARE, MEDICAID, SELFPAY ==
[2023-04-16 14:06] VITALS: BP 128/56; PULSE 69; O2SAT 95; BMI 24.8
--- NOTE | 2023-04-16 14:06 | HO.NEPHOV ---
HPI HPI Comments History of Present Illness Details 77 yr old man with long standing HTN and DM with CKD h/o Colon CA s/p surgery and Chemo in 2010 Creatinine was 1.5 and 1.4 in December 2022 and hence this referral Also had hypercalcemia of 10.4 mg/dL h/o Varicose veins - s/p surgery an dnow with leg ulcers Being followed by wound clinic Recently completed a course of antibiotics COUNT INCLUDES THE [facility] Medical History Ischemic cardiomyopathy Essential hypertension Colon cancer Type 2 diabetes mellitus with hyperglycemia Hypercholesterolemia Diabetic nephropathy Vitamin D deficiency Peripheral vascular disease Coronary artery disease Generalized osteoarthritis Asthma Surgical History History of vascular surgery S/P sclerotherapy of varicose veins Family History Father Hypertension Mother CVD (cardiovascular disease) Hypertension Maternal Uncle Prostate cancer Social History Housing: House Alcohol intake: former Patient Tobacco Use Status: Never used Tobacco e-Cigarette/Vaping Use: Never Used Second Hand Smoke Exposure: No Advance Directives Date on File: 02/03/21 service: Yes Current occupational status: retired and disabled Current occupational exposures/hazards: No Cognitive needs: Yes Hearing needs: No Vision needs: No Vital Signs 04/16/23 14:06 Height 5 ft 8 in Weight 163 lb BMI 24.8 BP 128/56 L Blood Pressure Location Rt brachial Position Sitting Pulse 69 Pulse Source Pulse Oximeter Pulse Oximetry (%) 95 Oxygen Delivery Method Room Air Physical Exam Vital Signs: Last Vital Signs Pulse 69 04/16/23 14:06 BP 128/56 L 04/16/23 14:06 Pulse Ox 95 04/16/23 14:06 Oxygen Delivery Method Room Air 04/16/23 14:06 BMI result Body Mass Index 24.8 Const General: comfortable Nutritional Appearance: well nourished Orientation/consciousness: patient oriented x3 HEENT Head: No normal to inspection Mouth: moist mucous membranes Neck Neck: Yes supple and Yes no JVD Resp Auscultation: clear to auscultation bilaterally, no rales and rub present Cardio Jugular venous distension: no JVD Palpation: no palpable S3 and no palpable S4 Heart sounds: no rubs GI Palpation (GI): Soft to palpation and nontender Percussion: No Fluid wave present General: Yes no CVA tenderness Back/Spine/Pelvis Back: no CVA tenderness Skin Wounds: wounds noted Neuro General: patient oriented x3 Assessment & Plan Assessment & Plan (1) Chronic kidney disease: Code(s): N18.9 - Chronic kidney disease, unspecified Plan: CKD 3 most likely due to hypertensive diabetic kidney disease Non diabetic causes need to be ruled out Note Hypercalcemia Work up / Serology as out lined CT scan showed cortical thinning. NO hydro in the past In the meantime, Avoid nephrotoxins Agree with ACEi and SGLT-2 inhibitors (2) BPH (benign prostatic hyperplasia): Code(s): N40.0 - Benign prostatic hyperplasia without lower urinary tract symptoms Plan: Follow with Urology (3) Hypercalcemia: Code(s): E83.52 - Hypercalcemia Plan: Check PTH and SPEP Orders: Orders Protein Electrophoresis, Serum Today E83.52 - Hypercalcemia, N18.9 - Chronic kidney disease, unspecified, N40.0 - Benign prostatic hyperplasia without lower urinary tract symptoms Complement C3 Today E83.52 - Hypercalcemia, N18.9 - Chronic kidney disease, unspecified, N40.0 - Benign prostatic hyperplasia without lower urinary tract symptoms Proteinase 3 PR3 Antibodies Today E83.52 - Hypercalcemia, N18.9 - Chronic kidney disease, unspecified, N40.0 - Benign prostatic hyperplasia without lower urinary tract symptoms Comprehensive Met. Panel Today E83.52 - Hypercalcemia, N18.9 - Chronic kidney disease, unspecified, N40.0 - Benign prostatic hyperplasia without lower urinary tract symptoms UA and rflx microscopic Today E83.52 - Hypercalcemia, N18.9 - Chronic kidney disease, unspecified, N40.0 - Benign prostatic hyperplasia without lower urinary tract symptoms Complement C4 Today E83.52 - Hypercalcemia, N18.9 - Chronic kidney disease, unspecified, N40.0 - Benign prostatic hyperplasia without lower urinary tract symptoms Neutrophil Cytoplasma Ab Today E83.52 - Hypercalcemia, N18.9 - Chronic kidney disease, unspecified, N40.0 - Benign prostatic hyperplasia without lower urinary tract symptoms Myeloperoxidase Antibody Today E83.52 - Hypercalcemia, N18.9 - Chronic kidney disease, unspecified, N40.0 - Benign prostatic hyperplasia without lower urinary tract symptoms Creatinine Urine Today E83.52 - Hypercalcemia, N18.9 - Chronic kidney disease, unspecified, N40.0 - Benign prostatic hyperplasia without lower urinary tract symptoms Total Protein Urine Random Today E83.52 - Hypercalcemia, N18.9 - Chronic kidney disease, unspecified, N40.0 - Benign prostatic hyperplasia without lower urinary tract symptoms Parathyroid Hormone Intact Today E83.52 - Hypercalcemia, N18.9 - Chronic kidney disease, unspecified, N40.0 - Benign prostatic hyperplasia without lower urinary tract symptoms Uric Acid Today E83.52 - Hypercalcemia, N18.9 - Chronic kidney disease, unspecified, N40.0 - Benign prostatic hyperplasia without lower urinary tract symptoms Coding Level of Care Code New Pt Level 5 (91212) Diagnoses Chronic kidney disease N18.9 BPH (benign prostatic hyperplasia) N40.0 Hypercalcemia E83. Results Reviewed Nephrology Results: Hgb 13.3 g/dl (14.0-18.0) L 01/04/23 WBC 8.9 X10*3/uL (4.8-10.8) 01/04/23 Plt Count 162 X10*3/uL (160-400) 01/04/23 Sodium 141 mmol/L (135-145) 01/04/23 Potassium 4.9 mmol/L (3.3-5.1) 01/04/23 Chloride 107 mmol/L (96-108) 01/04/23 Carbon Dioxide 24 mmol/L (22-29) 01/04/23 BUN 30 mg/dL (9-16) H 01/04/23 Creatinine 1.40 mg/dL (0.5-1.4) 01/04/23 Calcium 10.4 mg/dL (8.4-10.2) H 01/04/23 Urine Protein 100 (2+) mg/dL (Neg-Trace) H 12/11/22
== END 2023-04-16 14:25 | disposition home or self-care (01) ==
PROVIDERS: PCP Internal Medicine; Referring Provider Internal Medicine; Visit Provider Internal Medicine Hypertension Specialist
DX: I12.9 Hypertensive chronic kidney disease with stage 1 through stage 4 chronic kidney disease, or unspecified chronic kidney disease (principal); E11.22 Type 2 diabetes mellitus with diabetic chronic kidney disease; N18.30 Chronic kidney disease, stage 3 unspecified; N40.0 Benign prostatic hyperplasia without lower urinary tract symptoms; E83.52 Hypercalcemia; Z85.038 Personal history of other malignant neoplasm of large intestine
CPT/HCPCS: 99205

== ENCOUNTER 2023-04-16 14:00 | Outpatient (REF) | payer MEDICARE, MEDICAID, SELFPAY ==
[2023-04-16 15:55] LABS: Alanine Aminotransferase 26 U/L (0-40); Albumin Level 3.8 g/dL (3.5-5.0); Alkaline Phosphatase 92 U/L (39-117); Anion Gap 13 (12-20); Aspartate Amino Transferase 30 U/L (5-37); Bilirubin Total 0.6 mg/dL (0.0-1.0); Blood Urea Nitrogen 27 mg/dL (9-16); Calcium 10.1 mg/dL (8.4-10.2); Carbon Dioxide 26 mmol/L (22-29); Chloride 110 mmol/L (96-108); Estimated Glomerular Filt Rate 43; Glucose Random 90 mg/dL (60-115); Sodium 144 mmol/L (135-145); Total Protein 7.6 g/dL (6.5-8.0); Uric Acid 4.7 mg/dL (3.4-7.0)
[2023-04-16 16:02] LABS: Parathyroid Hormone Intact 93.1 pg/mL (8.7-77.1)
[2023-04-16 16:50] LABS: Appearance Urine Clear; Color Urine Yellow; Glucose Urine UA >=1000 mg/dL (Negative); Leukocyte Esterase Urine Negative (Negative); Nitrite Urine Negative (Negative); Specific Gravity - Urine >= 1.030 (1.005-1.025); UMIC TRIGGER UA YES; Urine Blood Negative (Negative); Urine Ketones Negative (Negative); Urine Protein 100 (2+) mg/dL (Neg-Trace)
[2023-04-16 17:12] LABS: Bacteria Urine None Seen (None Seen); RBC Urine 0-2 /HPF (0-2); Squamous Epithelial Cell Urine 0-2 /HPF (0-2); WBC Urine 0-5 /HPF (0-5)
[2023-04-16 17:34] LABS: Creatinine Urine 111.69 mg/dL; Total Protein Urine Random 174 mg/dL (<12)
[2023-04-18 11:38] LABS: Complement C3 152 mg/dL (82-185)
[2023-04-18 19:28] LABS: Myeloperoxidase Antibody <1.0 AI; Proteinase 3 PR3 Antibodies <1.0 AI
[2023-04-19 09:27] LABS: Prot Elec - Albumin 3.7 g/dL (3.8-4.8); Prot Elec - Alpha1 0.3 g/dL (0.2-0.3); Prot Elec - Alpha2 0.8 g/dL (0.5-0.9); Prot Elec - Beta 1 0.5 g/dL (0.4-0.6); Prot Elec - Beta 2 0.7 g/dL (0.2-0.5); Prot Elec - Gamma 1.3 g/dL (0.8-1.7); Prot Elec - Total Protein 7.2 g/dL (6.1-8.1)
[2023-04-24 11:58] LABS: Neutrophil Cyto Ab Screen NEGATIVE (NEGATIVE)
== END 2023-04-16 14:01 | disposition home or self-care (01) ==
LOC: HO.LAB 14:00
PROVIDERS: PCP Internal Medicine; Referring Provider Internal Medicine; Visit Provider Internal Medicine Hypertension Specialist
DX: N18.9 Chronic kidney disease, unspecified (principal); I12.9 Hypertensive chronic kidney disease with stage 1 through stage 4 chronic kidney disease, or unspecified chronic kidney disease; E11.22 Type 2 diabetes mellitus with diabetic chronic kidney disease; E83.52 Hypercalcemia; N40.0 Benign prostatic hyperplasia without lower urinary tract symptoms
CPT/HCPCS: 36415; 80053; 81001; 82570; 83970; 84156; 84165; 84550; 86021; 86036; 86160; 99202

== ENCOUNTER 2023-05-09 13:52 | Outpatient (AMB) | payer MEDICARE, MEDICAID, SELFPAY ==
[2023-05-09 14:12] VITALS: BP 140/82; PULSE 80; O2SAT 98; BMI 25.8
--- NOTE | 2023-05-09 14:12 | MHC.PC.OV ---
Vital Signs 05/09/23 14:12 Height 5 ft 6 in Weight 160 lb BMI 25.8 BP 140/82 H Blood Pressure Location Lt brachial Position Sitting Pulse 80 Pulse Source Pulse Oximeter Pulse Oximetry (%) 98 Oxygen Delivery Method Room Air Intake Visit Reasons: Both legs are leaking liquid (yellow) Allergies finasteride Adverse Reaction (Intermediate, Verified 05/09/23 14:13) rash lisinopril Adverse Reaction (Intermediate, Verified 05/09/23 14:13) hyperkalemia Shellfish Allergy (Mild, Uncoded 05/09/23 14:13) NOT APPLICABLE Tobacco use date assessed: 03/26/23 Fall risk assessment: No Falls in past year Last assessed Fall Risk: 05/09/23 Dental Screening Dental Screen Date: 05/09/23 Did you have a dental visit in the last 12 months?: No Did you have a dental problem in the last 6 months where you did not have access to dental care?: No Was dental information given to patient?: No HPI Both legs are leaking liquid (yellow) HPI Details 77-year-old male with controlled diabetes mellitus coronary artery disease hypercholesterolemia hypertension BPH, colon cancer history 2010 and venous stasis dermatitis last seen in March 2023 comes in for follow-up. Hemoglobin A1c in March was 6.4 review of the notes has seen Nephrology 2 weeks ago. 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 Patient also follows up with urology for cystoscopy seen 02/15/2023 for evaluation of incomplete bladder emptying and BPH placed on Proscar stopped due to rash declined cystoscopy prostate volumes enlarged to 52.5 cc 138 post void 68.8 placed on alfuzosin 10 mg. Last cholesterol test August 2022 67 patient complains that the lower extremity has been having secretions prompted for consultation patient also needs form to be filled out so that the insurance can cover for the materials helping with the peripheral vascular disease. COUNT INCLUDES THE [facility] Medical History Ischemic cardiomyopathy Essential hypertension Colon cancer Type 2 diabetes mellitus with hyperglycemia Hypercholesterolemia Diabetic nephropathy Vitamin D deficiency Peripheral vascular disease Coronary artery disease Generalized osteoarthritis Asthma Surgical History History of vascular surgery S/P sclerotherapy of varicose veins Family History Father Hypertension Mother CVD (cardiovascular disease) Hypertension Maternal Uncle Prostate cancer Social History Housing: House Alcohol intake: former Patient Tobacco Use Status: Never used Tobacco e-Cigarette/Vaping Use: Never Used Second Hand Smoke Exposure: No Advance Directives Date on File: 02/03/21 service: Yes Current occupational status: retired and disabled Current occupational exposures/hazards: No Cognitive needs: Yes Hearing needs: No Vision needs: No Questionnaire PHQ-9 Over the last 2 weeks, how often have you been bothered by any of the following problems? 1. Little interest or pleasure in doing things: not at all 2. Feeling down, depressed, or hopeless: not at all 3. Trouble falling or staying asleep, or sleeping too much: not at all 4. Feeling tired or having little energy: not at all 5. Poor appetite or overeating: not at all 6. Feeling bad about yourself - or that you are a failure or have let yourself or your family down: not at all 7. Trouble concentrating on things, such as reading the newspaper or watching television: not at all 8. Moving or speaking so slowly that other people could have noticed. Or the opposite - being so fidgety or restless that you have been moving around a lot more than usual: not at all 9. Thoughts that you would be better off or of hurting yourself in some way: not at all Total score: 0 Depression Screening Interpretation: Negative Depression Screening Done: Yes Source: Developed by Drs. Leonel King, Sherry Rosales, Herman Rodriguez and colleagues, with an educational sandi from [employer]. Thrive Questionnaire Date Thrive assessed: 05/09/23 I am a: Parent/Caregiver What is your living situation today?: I have a steady place to live Within the past 12 months, did the food you bought not last and you didn't have the money to get more?: Never true Within the past 12 months, did you worry whether your food would run out before you got money to buy more?: Never true Do you have trouble paying for medicines?: No Do you have trouble getting transportation to medical appointments?: No Do you have trouble paying your heating and electricity bill?: No Do you have trouble taking care of your child, family member or friend?: No Do you have trouble with day-to-day activities such as bathing, preparing meals, shopping, managing finances, etc.?: No Are you currently unemployed and looking for a job?: No Are you interested in more education?: No Currently or been in a relationship where the following occur: no concerns reported THRIVE Score: 0 AUDIT C Alcohol Use Questionnaire (AUDIT-C) 1. How often do you have a drink containing alcohol?: Never 3. How often do you have six or more drinks on one occasion?: Never Total Score: 0 Score Reviewed/Action Taken: No BALJIT-7 AMB Questionnaire BALJIT-7 Date BALJIT - 7 assessed: 05/09/23 Feeling nervous, anxious, or on edge: 0 = Not at all Not being able to stop or control worryin = Not at all Worrying too much about different things: 0 = Not at all Trouble relaxin = Not at all Being so restless that it is hard to sit still: 0 = Not at all Becoming easily annoyed or irritable: 0 = Not at all Feeling afraid as if something awful might happen: 0 = Not at all Total BALJIT-7 score (0-4 normal; 5-9 mild; 10-14 moderate; 15-21 severe): 0 Source: Developed by Drs. Leonel King, Sherry Rosales, Herman Rodriguez and colleagues, with an educational sandi from [employer]. Physical exam (Primary Care) Vital Signs: Last Vital Signs Pulse 80 05/09/23 14:12 BP 140/82 H 05/09/23 14:12 Pulse Ox 98 05/09/23 14:12 Oxygen Delivery Method Room Air 05/09/23 14:12 BMI result Body Mass Index 25.8 Tobacco/Smoking Status: Tobacco use Status Tobacco use date assessed 03/26/23 05/09/23 14:14 Patient Tobacco Use Status Never used Tobacco 05/09/23 14:14 Tobacco use type 03/27/23 10:36 e-Cigarette/Vaping Use Never Used 05/09/23 14:14 PHQ-9: PHQ-9 Score PHQ-9: Total score 0 05/09/23 14:18 Depression Screening Interpretation: Negative Thrive Assessment: Date of Thrive Assessment Date Thrive assessed 05/09/23 05/09/23 14:14 Currently or been in a relationship where the following occur: no concerns reported Const General: alert; No acute distress Eyes Conjunctivae: conjunctivae normal Resp Auscultation: clear to auscultation bilaterally Cardio Rate: regular rate Rhythm: regular rhythm GI Inspection: Yes normal to inspection Assessment and Plan Assessment & Plan (1) Type 2 diabetes mellitus with hyperglycemia: Comment: Dr. Villagomez Code(s): E11.65 - Type 2 diabetes mellitus with hyperglycemia Qualifiers: Diabetes mellitus intermediate insulin use: without propeller driven airplane mechanic use Qualified Code(s): E11.65 - Type 2 diabetes mellitus with hyperglycemia Plan: Decrease the amount of carbohydrate intake, pasta, bread, rice and potatoes are all sugar and that is aside from all the sweet stuff, remember that fruits are good but they are Sweet also. Hemoglobin A1c goal of less than 7.March 6.4 on Jardiance 10 mg once a day glimepiride 2 mg once a day Tradjenta 5 mg once a day (2) Coronary artery disease: Comment: Stent placement 2003 SC October 2006 echocardiogram November 2016 EF 40-45% ischemic cardiomyopathy myocardial perfusion January 2017 is ejection fraction 40% Code(s): I25.10 - Atherosclerotic heart disease of apache coronary artery without angina pectoris Qualifiers: Associated angina: without angina Coronary Disease-Associated Artery/Lesion type: [place] artery [place] vs. transplanted heart: apache heart Qualified Code(s): I25.10 - Atherosclerotic heart disease of [place] coronary artery without angina pectoris Plan: Control the cholesterol, weight, blood pressure, diabetes continue with clopidogrel (3) Hypercholesterolemia: Code(s): E78.00 - Pure hypercholesterolemia, unspecified Plan: Avoid fried foods, chicken skin, eggs, butter margarine, pastries and meat. Be it pork or beef they have a lot of cholesterol LDL goal of less than 70 and triglyceride of less than 150 on rosuvastatin 20 mg once a day (4) Asthma: Code(s): J45.909 - Unspecified asthma, uncomplicated Qualifiers: Asthma complication type: uncomplicated Asthma persistence: intermittent Asthma severity: mild Qualified Code(s): J45.20 - Mild intermittent asthma, uncomplicated Plan: Continue with the inhaler as needed (5) Essential hypertension: Code(s): I10 - Essential (primary) hypertension Plan: Continue with blood pressure medication. Decrease salt intake and exercise presently on amlodipine 10 mg once a day lisinopril 20 mg once a day metoprolol 100 mg once a day will do some changes with blood pressure medication as the leg continues to swell. (6) Venous stasis dermatitis: Code(s): I87.2 - Venous insufficiency (chronic) (peripheral) Plan: Patient is advised to decrease amlodipine to 5 mg and increase lisinopril to 30 mg once a day and to monitor blood pressure, leg has decrease in size with scab on both legs 1 inc multiple around leg and R medial ankle with 1 cm ulcer When sitting down elevate the legs, exercise, and support stockings. Continue the wraps with leakage of liquid. Coding Level of Care Code Est Pt Level 4 (60336) Diagnoses Type 2 diabetes mellitus with hyperglycemia, without long-term current use of insulin E11.65 Diabetes mellitus propeller driven airplane mechanic insulin use: without propeller driven airplane mechanic use Coronary artery disease involving apache coronary artery of [place] heart without angina pectoris I25.10 Associated angina: without angina Coronary Disease-Associated Artery/Lesion type: [place] artery [place] vs. transplanted heart: [place] heart Hypercholesterolemia E78.00 Mild intermittent asthma without complication J45.20 Asthma complication type: uncomplicated Asthma persistence: intermittent Asthma severity: mild Essential hypertension I10 Venous stasis dermatitis I87.2 Additional Codes PHQ-9 - 11165 - PHQ-9 Billing: ([id number])
== END 2023-05-09 15:00 | disposition home or self-care (01) ==
PROVIDERS: PCP Internal Medicine; Visit Provider Internal Medicine
DX: E11.65 Type 2 diabetes mellitus with hyperglycemia (principal); I25.10 Atherosclerotic heart disease of native coronary artery without angina pectoris; E78.00 Pure hypercholesterolemia, unspecified; J45.20 Mild intermittent asthma, uncomplicated; I10 Essential (primary) hypertension; I87.2 Venous insufficiency (chronic) (peripheral)
CPT/HCPCS: 99214

== ENCOUNTER 2023-05-21 13:27 | Outpatient (AMB) | payer MEDICARE, MEDICAID, SELFPAY ==
--- NOTE | 2023-05-21 13:31 | HO.NEPHOV ---
HPI HPI Comments History of Present Illness Details 77 yr old man with long standing HTN and DM with CKD h/o Colon CA s/p surgery and Chemo in 2010 Creatinine was 1.5 and 1.4 in December 2022 and hence this referral Also had hypercalcemia of 10.4 mg/dL h/o Varicose veins - s/p surgery an dnow with leg ulcers Being followed by wound clinic Recently completed a course of antibiotics [facility] Medical History Ischemic cardiomyopathy Essential hypertension Colon cancer Type 2 diabetes mellitus with hyperglycemia Hypercholesterolemia Diabetic nephropathy Vitamin D deficiency Peripheral vascular disease Coronary artery disease Generalized osteoarthritis Asthma Surgical History History of vascular surgery S/P sclerotherapy of varicose veins Family History Father Hypertension Mother CVD (cardiovascular disease) Hypertension Maternal Uncle Prostate cancer Social History Housing: House Alcohol intake: former Patient Tobacco Use Status: Never used Tobacco e-Cigarette/Vaping Use: Never Used Second Hand Smoke Exposure: No Advance Directives Date on File: 02/03/21 service: Yes Current occupational status: retired and disabled Current occupational exposures/hazards: No Cognitive needs: Yes Hearing needs: No Vision needs: No Vital Signs 05/21/23 13:32 Height 5 ft 6 in Weight 167 lb BMI 27.0 BP 142/62 H Blood Pressure Location Lt brachial Position Sitting Pulse 75 Pulse Source Pulse Oximeter Pulse Oximetry (%) 95 Oxygen Delivery Method Room Air Physical Exam Vital Signs: Last Vital Signs Pulse 75 05/21/23 13:32 BP 142/62 H 05/21/23 13:32 Pulse Ox 95 05/21/23 13:32 Oxygen Delivery Method Room Air 05/21/23 13:32 BMI result Body Mass Index 27.0 Assessment & Plan Assessment & Plan (1) Chronic kidney disease: Code(s): N18.9 - Chronic kidney disease, unspecified Plan: CKD 3 most likely due to hypertensive diabetic kidney disease Non diabetic causes seem unlikely based on recent work up Non nephrotic range proteinuria due to Diabetic kidney disease CT scan showed cortical thinning. NO hydro in the past In the meantime, Avoid nephrotoxins Agree with ACEi and SGLT-2 inhibitors GLycosuria due to SGLT-2 inhibitors (2) BPH (benign prostatic hyperplasia): Code(s): N40.0 - Benign prostatic hyperplasia without lower urinary tract symptoms Plan: Follow with Urology (3) Hypercalcemia: Code(s): E83.52 - Hypercalcemia Plan: REpeat Ca is normal SPEP - no MCGP Orders: Orders Complete Blood Count no Diff 4 Months N18.9 - Chronic kidney disease, unspecified Basic Metabolic Panel 4 Months N18.9 - Chronic kidney disease, unspecified Coding Level of Care Code Est Pt Level 4 (65469) Diagnoses Chronic kidney disease N18.9 BPH (benign prostatic hyperplasia) N40.0 Hypercalcemia E83.52 Results Reviewed Nephrology Results: Hgb 13.3 g/dl (14.0-18.0) L 01/04/23 WBC 8.9 X10*3/uL (4.8-10.8) 01/04/23 Plt Count 162 X10*3/uL (160-400) 01/04/23 Sodium 144 mmol/L (135-145) 04/16/23 Potassium 5.0 mmol/L (3.3-5.1) 04/16/23 Chloride 110 mmol/L (96-108) H 04/16/23 Carbon Dioxide 26 mmol/L (22-29) 04/16/23 BUN 27 mg/dL (9-16) H 04/16/23 Creatinine 1.58 mg/dL (0.5-1.4) H 04/16/23 Calcium 10.1 mg/dL (8.4-10.2) 04/16/23 PTH Intact 93.1 pg/mL (8.7-77.1) H 04/16/23 Urine Protein 100 (2+) mg/dL (Neg-Trace) H 04/16/23 Urine Creatinine 111.69 mg/dL 04/16/23
[2023-05-21 13:32] VITALS: BP 142/62; PULSE 75; O2SAT 95; BMI 27.0
== END 2023-05-21 13:52 | disposition home or self-care (01) ==
PROVIDERS: PCP Internal Medicine; Visit Provider Internal Medicine Hypertension Specialist
DX: N18.9 Chronic kidney disease, unspecified (principal); N40.0 Benign prostatic hyperplasia without lower urinary tract symptoms; E83.52 Hypercalcemia
CPT/HCPCS: 99214

== ENCOUNTER → 2023-05-21 13:27 | Outpatient (BNVA) | payer MEDICARE, MEDICAID, SELFPAY | PROVIDERS: PCP Internal Medicine; Visit Provider Internal Medicine Hypertension Specialist | DX: N18.9 Chronic kidney disease, unspecified (principal); N40.0 Benign prostatic hyperplasia without lower urinary tract symptoms; E83.52 Hypercalcemia | CPT/HCPCS: 99212 ==

== ENCOUNTER 2023-06-25 12:45 | Outpatient (AMB) | payer MEDICARE, MEDICAID, SELFPAY ==
[2023-06-25 12:47] VITALS: BP 114/72; PULSE 64; O2SAT 94; BMI 26.1
--- NOTE | 2023-06-25 12:47 | MHC.PC.OV ---
Vital Signs 06/25/23 12:47 Height 5 ft 6 in Weight 162 lb BMI 26.1 BP 114/72 Blood Pressure Location Lt brachial Position Sitting Pulse 64 Pulse Source Pulse Oximeter Pulse Oximetry (%) 94 Oxygen Delivery Method Room Air Intake Visit Reasons: HTN, stasis dermatitis Allergies finasteride Adverse Reaction (Intermediate, Verified 06/25/23 12:48) rash lisinopril Adverse Reaction (Intermediate, Verified 06/25/23 12:48) hyperkalemia Shellfish Allergy (Mild, Uncoded 06/25/23 12:48) NOT APPLICABLE Medication List - Last Reconciled 06/25/23 by Allen Sevilla MD adhesive tape As directed albuterol sulfate 90 mcg/actuation (Ventolin HFA) 2 puffs inhalation Q6H PRN alfuzosin ER 10 mg PO DAILY amlodipine 10 mg PO DAILY budesonide-formoterol 160-4.5 mcg/actuation (Symbicort) 2 puffs inhalation Q12H cholecalciferol (vitamin D3) 25 mcg PO DAILY clopidogrel 75 mg PO DAILY cyanocobalamin (vitamin B-12) 1,000 mcg PO DAILY dapagliflozin propanediol (Farxiga) 5 mg PO DAILY [disposable chux As directed] disposable gloves large gloves elastic bandage (Coban Self-Adherent Wrap) As directed gabapentin 100 mg PO BEDTIME glimepiride 2 mg PO QAM hydrocortisone 2.5% 1 appl topical BID PRN [Large Gauze Pads CURAD 4 x 4 in As directed] linagliptin (Tradjenta) 5 mg PO DAILY lisinopril 20 mg PO DAILY metoprolol succinate ER 100 mg PO DAILY 90 days non-adherent bandage (Curity Abdominal Pad) As directed rosuvastatin 20 mg PO DAILY tramadol 50 mg PO Q8H PRN 90 days Tobacco use date assessed: 03/26/23 Fall risk assessment: No Falls in past year Last assessed Fall Risk: 06/25/23 Dental Screening Dental Screen Date: 06/25/23 Did you have a dental visit in the last 12 months?: No Did you have a dental problem in the last 6 months where you did not have access to dental care?: No Was dental information given to patient?: Patient has dentist HPI HTN, stasis dermatitis HPI Details 77-year-old overweight male with controlled diabetes mellitus coronary artery disease hypercholesterolemia hypertension peripheral vascular disease asthma and venous stasis dermatitis coming in for follow-up. Last seen in April 2023. Patient has declined colonoscopy. Review of the notes patient sees Nephrology diagnosis of chronic kidney disease stage III hypertensive/diabetes [facility] Medical History (Updated 06/25/23 @ 13:06 by Allen Sevilla MD) Atherosclerotic cardiovascular disease Ischemic cardiomyopathy Essential hypertension Colon cancer Type 2 diabetes mellitus with hyperglycemia Hypercholesterolemia Diabetic nephropathy Vitamin D deficiency Peripheral vascular disease Coronary artery disease Generalized osteoarthritis Asthma Surgical History History of vascular surgery S/P sclerotherapy of varicose veins Family History Father Hypertension Mother CVD (cardiovascular disease) Hypertension Maternal Uncle Prostate cancer Social History Housing: House Alcohol intake: former Patient Tobacco Use Status: Never used Tobacco e-Cigarette/Vaping Use: Never Used Second Hand Smoke Exposure: No Advance Directives Date on File: 02/03/21 service: Yes Current occupational status: retired and disabled Current occupational exposures/hazards: No Cognitive needs: Yes Hearing needs: No Vision needs: No Questionnaire PHQ-9 Over the last 2 weeks, how often have you been bothered by any of the following problems? 1. Little interest or pleasure in doing things: not at all 2. Feeling down, depressed, or hopeless: not at all 3. Trouble falling or staying asleep, or sleeping too much: not at all 4. Feeling tired or having little energy: not at all 5. Poor appetite or overeating: not at all 6. Feeling bad about yourself - or that you are a failure or have let yourself or your family down: not at all 7. Trouble concentrating on things, such as reading the newspaper or watching television: not at all 8. Moving or speaking so slowly that other people could have noticed. Or the opposite - being so fidgety or restless that you have been moving around a lot more than usual: not at all 9. Thoughts that you would be better off or of hurting yourself in some way: not at all Total score: 0 Depression Screening Interpretation: Negative Depression Screening Done: Yes Source: Developed by Drs. Leonel King, Sherry Rosales, Herman Rodriguez and colleagues, with an educational sandi from [employer]. Thrive Questionnaire Date Thrive assessed: 06/25/23 I am a: Parent/Caregiver What is your living situation today?: I have a steady place to live Within the past 12 months, did the food you bought not last and you didn't have the money to get more?: Never true Within the past 12 months, did you worry whether your food would run out before you got money to buy more?: Never true Do you have trouble paying for medicines?: No Do you have trouble getting transportation to medical appointments?: No Do you have trouble paying your heating and electricity bill?: No Do you have trouble taking care of your child, family member or friend?: No Do you have trouble with day-to-day activities such as bathing, preparing meals, shopping, managing finances, etc.?: No Are you currently unemployed and looking for a job?: No Are you interested in more education?: No Currently or been in a relationship where the following occur: no concerns reported THRIVE Score: 0 AUDIT C Alcohol Use Questionnaire (AUDIT-C) 1. How often do you have a drink containing alcohol?: Never 3. How often do you have six or more drinks on one occasion?: Never Total Score: 0 Score Reviewed/Action Taken: No BALJIT-7 AMB Questionnaire BALJIT-7 Date BALJIT - 7 assessed: 06/25/23 Feeling nervous, anxious, or on edge: 0 = Not at all Not being able to stop or control worryin = Not at all Worrying too much about different things: 0 = Not at all Trouble relaxin = Not at all Being so restless that it is hard to sit still: 0 = Not at all Becoming easily annoyed or irritable: 0 = Not at all Feeling afraid as if something awful might happen: 0 = Not at all Total BALJIT-7 score (0-4 normal; 5-9 mild; 10-14 moderate; 15-21 severe): 0 Source: Developed by Drs. Leonel King, Sherry Rosales, Herman Rodriguez and colleagues, with an educational sandi from [employer]. Physical exam (Primary Care) Vital Signs: Last Vital Signs Pulse 64 06/25/23 12:47 BP 114/72 06/25/23 12:47 Pulse Ox 94 06/25/23 12:47 Oxygen Delivery Method Room Air 06/25/23 12:47 BMI result Body Mass Index 26.1 Tobacco/Smoking Status: Tobacco use Status Tobacco use date assessed 03/26/23 06/25/23 12:49 Patient Tobacco Use Status Never used Tobacco 06/25/23 12:49 Tobacco use type 03/27/23 10:36 e-Cigarette/Vaping Use Never Used 06/25/23 12:49 PHQ-9: PHQ-9 Score PHQ-9: Total score 0 06/25/23 13:02 Depression Screening Interpretation: Negative Thrive Assessment: Date of Thrive Assessment Date Thrive assessed 06/25/23 06/25/23 12:49 Currently or been in a relationship where the following occur: no concerns reported Const General: alert; No acute distress Eyes Conjunctivae: conjunctivae normal Resp Auscultation: clear to auscultation bilaterally Cardio Rate: regular rate Rhythm: regular rhythm GI Inspection: Yes normal to inspection Extrem General: Yes normal to inspection and No edema Results AMB Hemoglobin A1c AMB Hemoglobin A1c 6.1 % Last Edit by Katy Casanova CMA on 06/25/23 13:03 Results Reviewed Results Reviewed: Laboratory Last Values Hgb A1c (Clinic) 6.1 % (4.0-6.0) H 06/25/23 12:49 Assessment and Plan Assessment & Plan (1) Type 2 diabetes mellitus with hyperglycemia: Comment: Dr. Villagomez Code(s): E11.65 - Type 2 diabetes mellitus with hyperglycemia Qualifiers: Diabetes mellitus ocean transportation intermediary insulin use: without custodial use Qualified Code(s): E11.65 - Type 2 diabetes mellitus with hyperglycemia Plan: Decrease the amount of carbohydrate intake, pasta, bread, rice and potatoes are all sugar and that is aside from all the sweet stuff, remember that fruits are good but they are Sweet also. Hemoglobin A1c goal of less than 7.0. Patient is on Farxiga glimepiride Tradjenta (2) Coronary artery disease: Comment: Stent placement 2003 [place] October 2006 echocardiogram November 2016 EF 40-45% ischemic cardiomyopathy myocardial perfusion January 2017 is ejection fraction 40% Code(s): I25.10 - Atherosclerotic heart disease of [place] coronary artery without angina pectoris Qualifiers: Coronary Disease-Associated Artery/Lesion type: [place] artery [place] vs. transplanted heart: [place] heart Associated angina: without angina Qualified Code(s): I25.10 - Atherosclerotic heart disease of [place] coronary artery without angina pectoris Plan: Control the cholesterol, weight, blood pressure, diabetes on clopidogrel (3) Hypercholesterolemia: Code(s): E78.00 - Pure hypercholesterolemia, unspecified Plan: Avoid fried foods, chicken skin, eggs, butter margarine, pastries and meat. Be it pork or beef they have a lot of cholesterol LDL goal of less than 70 and triglyceride of less than 150. Patient on rosuvastatin 20 mg once a day last test was August 2022 (4) Asthma: Code(s): J45.909 - Unspecified asthma, uncomplicated Qualifiers: Asthma severity: mild Asthma persistence: intermittent Asthma complication type: uncomplicated Qualified Code(s): J45.20 - Mild intermittent asthma, uncomplicated Plan: Continue with inhaler as needed (5) Chronic kidney disease: Code(s): N18.9 - Chronic kidney disease, unspecified Plan: Keep well hydrated avoid NSAIDs (6) Essential hypertension: Code(s): I10 - Essential (primary) hypertension Plan: Continue with blood pressure medication. Decrease salt intake and exercise amlodipine 10 mg once a day lisinopril 20 mg once a day metoprolol 100 mg once a day (7) Venous stasis dermatitis: Code(s): I87.2 - Venous insufficiency (chronic) (peripheral) Plan: When sitting down elevate the legs, exercise, and support stockings Orders: Orders Comprehensive Met. Panel 3 Months . - Type 2 diabetes mellitus with hyperglycemia Free T4 (Free Thyroxine) 3 Months . - Type 2 diabetes mellitus with hyperglycemia Lipid Panel 3 Months . - Type 2 diabetes mellitus with hyperglycemia, E78.00 - Pure hypercholesterolemia, unspecified IRON PROFILE 3 Months . - Type 2 diabetes mellitus with hyperglycemia Hemoglobin A1c 3 Months . - Type 2 diabetes mellitus with hyperglycemia Microalbumin, Random (w Creat) 3 Months . - Type 2 diabetes mellitus with hyperglycemia AMB Hemoglobin A1c Today Z13.9 - Encounter for screening, unspecified Complete Blood Count Auto Diff 3 Months . - Type 2 diabetes mellitus with hyperglycemia Thyroid Stimulating Hormone 3 Months . - Type 2 diabetes mellitus with hyperglycemia Reticulocyte Count 3 Months E11.65 - Type 2 diabetes mellitus with hyperglycemia Vitamin B12 and Folate 3 Months E11.65 - Type 2 diabetes mellitus with hyperglycemia Ferritin 3 Months E11.65 - Type 2 diabetes mellitus with hyperglycemia Creatinine Urine 3 Months E11.65 - Type 2 diabetes mellitus with hyperglycemia Uric Acid 3 Months E11.65 - Type 2 diabetes mellitus with hyperglycemia Medications: New [ANTIBACTERIAL GAUZE PAD 4x4 inches] As directed 120 ea 12RF I87.2 - Venous insufficiency (chronic) (peripheral) Refilled budesonide-formoterol 160-4.5 mcg/actuation (Symbicort) 2 puffs inhalation Q12H 3 ea 3RF E11.65 - Type 2 diabetes mellitus with hyperglycemia Coding Level of Care Code Est Pt Level 4 (47277) Diagnoses Type 2 diabetes mellitus with hyperglycemia, without long-term current use of insulin E11.65 Diabetes mellitus ocean transportation intermediary insulin use: without custodial use Coronary artery disease involving [place] coronary artery of [place] heart without angina pectoris I25.10 Coronary Disease-Associated Artery/Lesion type: [place] artery [place] vs. transplanted heart: [place] heart Associated angina: without angina Hypercholesterolemia E78.00 Mild intermittent asthma without complication J45.20 Asthma severity: mild Asthma persistence: intermittent Asthma complication type: uncomplicated Chronic kidney disease N18.9 Essential hypertension I10 Venous stasis dermatitis I87.2 Additional Codes PHQ-9 - 68116 - PHQ-9 Billing: ([id number])
== END 2023-06-25 13:32 | disposition home or self-care (01) ==
PROVIDERS: PCP Internal Medicine; Visit Provider Internal Medicine
DX: E11.65 Type 2 diabetes mellitus with hyperglycemia (principal); I25.10 Atherosclerotic heart disease of native coronary artery without angina pectoris; E78.00 Pure hypercholesterolemia, unspecified; J45.20 Mild intermittent asthma, uncomplicated; I12.9 Hypertensive chronic kidney disease with stage 1 through stage 4 chronic kidney disease, or unspecified chronic kidney disease; N18.9 Chronic kidney disease, unspecified; I87.2 Venous insufficiency (chronic) (peripheral)
CPT/HCPCS: 83036; 99214

== ENCOUNTER → 2023-07-09 12:46 | Outpatient (BNVA) | payer MEDICARE, MEDICAID, SELFPAY | PROVIDERS: PCP Internal Medicine; Visit Provider Internal Medicine | DX: I25.10 Atherosclerotic heart disease of native coronary artery without angina pectoris (principal); I25.5 Ischemic cardiomyopathy; I10 Essential (primary) hypertension; I49.1 Atrial premature depolarization; I45.2 Bifascicular block; E11.8 Type 2 diabetes mellitus with unspecified complications; T82.867A Thrombosis due to cardiac prosthetic devices, implants and grafts, initial encounter; Z95.5 Presence of coronary angioplasty implant and graft | CPT/HCPCS: 93005; 99212 ==

== ENCOUNTER 2023-07-09 12:47 | Outpatient (AMB) | payer MEDICARE, MEDICAID, SELFPAY ==
[2023-07-09 12:51] VITALS: BP 130/70; PULSE 77; O2SAT 97; BMI 26.3
--- NOTE | 2023-07-09 12:51 | A.OFFVIS_ITS ---
Vital Signs 07/09/23 12:51 Height 5 ft 6 in Weight 163 lb 2.273 oz BMI 26.3 BP 130/70 Blood Pressure Location Lt brachial Position Sitting Pulse 77 Pulse Source Monitor Pulse Oximetry (%) 97 Oxygen Delivery Method Room Air Intake Visit Reasons: 1 yr f/up Filter Cleaner Required: No Allergies finasteride Adverse Reaction (Intermediate, Verified 06/25/23 12:48) rash lisinopril Adverse Reaction (Intermediate, Verified 06/25/23 12:48) hyperkalemia Shellfish Allergy (Mild, Uncoded 06/25/23 12:48) NOT APPLICABLE Medication List - Last Reconciled 07/09/23 by Lobo Koroma MD adhesive tape As directed albuterol sulfate 90 mcg/actuation (Ventolin HFA) 2 puffs inhalation Q6H PRN alfuzosin ER 10 mg PO DAILY amlodipine 10 mg PO DAILY [ANTIBACTERIAL GAUZE PAD 4x4 inches As directed] cholecalciferol (vitamin D3) 25 mcg PO DAILY clopidogrel 75 mg PO DAILY cyanocobalamin (vitamin B-12) 1,000 mcg PO DAILY dapagliflozin propanediol (Farxiga) 5 mg PO DAILY [disposable chux As directed] disposable gloves large gloves elastic bandage (Coban Self-Adherent Wrap) As directed gabapentin 100 mg PO BEDTIME glimepiride 2 mg PO QAM hydrocortisone 2.5% 1 appl topical BID PRN [Large Gauze Pads CURAD 4 x 4 in As directed] linagliptin (Tradjenta) 5 mg PO DAILY lisinopril 20 mg PO DAILY metoprolol succinate ER 100 mg PO DAILY 90 days mometasone-formoterol 200-5 mcg/actuation (Dulera) 2 puffs inhalation BID non-adherent bandage (Curity Abdominal Pad) As directed rosuvastatin 20 mg PO DAILY tramadol 50 mg PO Q8H PRN 90 days HPI Comments Details: Michael returns for follow-up regarding coronary disease. He has a history of anterior wall ST-elevation myocardial infarction from 2006. That was precipitated apparently by late stent thrombosis of LAD stent. He also has a history of right coronary artery stenting in the past. Overall, no complaints from cardiac. No angina or in fact anything cardiac sounding. He states he is doing good. [facility] Medical History (Updated 04/08/24 @ 13:06 by Allen Sevilla MD) Atherosclerotic cardiovascular disease Ischemic cardiomyopathy Essential hypertension Colon cancer Type 2 diabetes mellitus with hyperglycemia Hypercholesterolemia Diabetic nephropathy Vitamin D deficiency Peripheral vascular disease Coronary artery disease Generalized osteoarthritis Asthma Surgical History History of vascular surgery S/P sclerotherapy of varicose veins Family History Father Hypertension Mother CVD (cardiovascular disease) Hypertension Maternal Uncle Prostate cancer Social History Housing: House Alcohol intake: former Patient Tobacco Use Status: Never used Tobacco e-Cigarette/Vaping Use: Never Used Second Hand Smoke Exposure: No Advance Directives Date on File: 02/03/21 service: Yes Current occupational status: retired and disabled Current occupational exposures/hazards: No Cognitive needs: Yes Hearing needs: No Vision needs: No Review of Systems Const Denies weakness ENT Denies dizziness Card Denies chest pain, Denies chest pain with activity, Denies syncope, Denies rapid heart rate, Denies pedal edema, Denies edema, Denies leg edema, Denies lightheadedness, Denies palpitations, Denies dyspnea, Denies dyspnea on exertion and Denies orthopnea Resp Denies cough, Denies dyspnea and Denies dyspnea on exertion GI Denies hematochezia and Denies change in stool character Musc Denies abnormal gait, Denies muscle cramps, Denies muscle weakness, Denies numb ness, Denies radiating pain into limb and Denies tingling Neuro Denies abnormal gait, Denies dizziness, Denies syncope, Denies numbness, Denies tingling and Denies weakness Endo Denies palpitations Physical Exam Vital Signs: Last Vital Signs Pulse 77 07/09/23 12:51 BP 130/70 07/09/23 12:51 Pulse Ox 97 07/09/23 12:51 Oxygen Delivery Method Room Air 07/09/23 12:51 BMI result Body Mass Index 26.3 Const General: comfortable and no acute distress Orientation/consciousness: patient oriented x3 HEENT Other: Unremarkable Head: Yes normal to inspection Neck Neck: Yes normal visual inspection Chest Chest palpation & inspection: normal inspection of the chest Resp Auscultation: clear to auscultation bilaterally Cardio Palpation: normal PMI Heart sounds: S1 normal heart sound present, S2 normal heart sound present, no gallops, Murmur heart sound present systolic II/ and no rubs GI Palpation (GI): Soft to palpation Back/Spine/Pelvis Other: unremarkable Skin General skin exam: no rashes or lesions noted Neuro General: patient oriented x3 Extrem General: Yes normal to inspection Psych Mental Status: mental status grossly normal Office Procedures EKG Details: EKG with sinus rhythm at 77/Min; 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 Similar to prior. [id number], Complete Assessment & Plan Assessment & Plan (1) Atherosclerotic cardiovascular disease: Code(s): I25.10 - Atherosclerotic heart disease of [place] coronary artery without angina pectoris Category: Medical Plan: Continue Plavix. In the past was on aspirin as well, but apparently had a lot of bleeding from leg ulcers and that was stopped. Continue statins. Last LDL 65 mg/dL. Some insurance issue with metoprolol ER and hence switched to metoprolol tartrate. (2) Coronary stent thrombosis: Code(s): T82.867A - Thrombosis due to cardiac prosthetic devices, implants and grafts, initial encounter Category: Medical Plan: Continue Plavix long-term. (3) Ischemic cardiomyopathy: Code(s): I25.5 - Ischemic cardiomyopathy Category: Medical Plan: Echocardiogram from 2020 with diminished LVEF, 40-45% and evidence of old LAD territory infarction. Myocardial perfusion imaging from 2017 with large apical scar extending into anterior septal, inferoapical wall and anterior wall with EF of 40%. Continue beta-blockers and lisinopril. (4) Type 2 diabetes mellitus with unspecified complications: Code(s): E11.8 - Type 2 diabetes mellitus with unspecified complications Category: Medical Plan: Most recent hemoglobin A1c is 6.1%. Optimal. (5) Essential hypertension: Code(s): I10 - Essential (primary) hypertension Category: Medical Plan: Stable. No changes. Orders: Orders CA echo transthoracic complete 1 Year I25.5 - Ischemic cardiomyopathy Medications: New metoprolol tartrate 50 mg PO BID 180 tabs 3RF 90 days Discontinued metoprolol succinate ER Discontinued Reason: Doctor's Order 100 mg PO DAILY 90 days 90 tabs 3RF
== END 2023-07-09 13:22 | disposition home or self-care (01) ==
PROVIDERS: PCP Internal Medicine; Visit Provider Internal Medicine
DX: I25.10 Atherosclerotic heart disease of native coronary artery without angina pectoris (principal); T82.867A Thrombosis due to cardiac prosthetic devices, implants and grafts, initial encounter; I25.5 Ischemic cardiomyopathy; E11.8 Type 2 diabetes mellitus with unspecified complications; I10 Essential (primary) hypertension
CPT/HCPCS: 93010; 99214

== ENCOUNTER 2023-09-17 08:09 | Outpatient (REF) | payer MEDICARE, MEDICAID, SELFPAY ==
[2023-09-17 09:00] LABS: Appearance Urine Clear; Color Urine Yellow; Glucose Urine UA >=1000 mg/dL (Negative); Leukocyte Esterase Urine Negative (Negative); Nitrite Urine Negative (Negative); UMIC TRIGGER UA YES; Urine Blood Negative (Negative); Urine Ketones Negative (Negative); Urine Protein 100 (2+) mg/dL (Neg-Trace)
[2023-09-17 09:04] LABS: Hematocrit 40.4 % (42.0-52.0); Hemoglobin 13.2 g/dl (14.0-18.0); Mean Corpuscular HGB Conc 32.7 g/dl (31.0-36.0); Mean Corpuscular Hemoglobin 29.6 pg (27.0-33.0); Mean Corpuscular Volume 90.6 fL (80.0-98.0); Mean Platelet Volume 11.6 fL (9.4-12.4); Platelet Count 146 X10*3/uL (160-400); Red Blood Count 4.46 X10*6/uL (4.60-5.80); Red Cell Distribution Width 14.6 % (11.0-16.0); White Blood Count 8.4 X10*3/uL (4.8-10.8)
[2023-09-17 09:05] LABS: Bacteria Urine None Seen (None Seen); Hyaline Casts Urine 0-2 /LPF (0-2); RBC Urine 0-2 /HPF (0-2); Squamous Epithelial Cell Urine 0-2 /HPF (0-2); WBC Urine 0-5 /HPF (0-5)
[2023-09-17 09:36] LABS: Anion Gap 14 (12-20); Blood Urea Nitrogen 34 mg/dL (9-16); Calcium 10.1 mg/dL (8.4-10.2); Carbon Dioxide 24 mmol/L (22-29); Chloride 108 mmol/L (96-108); Estimated Glomerular Filt Rate 42; Glucose Random 90 mg/dL (60-115); Potassium 5.1 mmol/L (3.3-5.1); Sodium 141 mmol/L (135-145)
== END 2023-09-17 08:10 | disposition home or self-care (01) ==
LOC: HO.LAB 08:09
PROVIDERS: PCP Internal Medicine; Visit Provider Internal Medicine Hypertension Specialist
DX: N18.9 Chronic kidney disease, unspecified (principal); E83.52 Hypercalcemia; N40.0 Benign prostatic hyperplasia without lower urinary tract symptoms
CPT/HCPCS: 36415; 80048; 81001; 81003; 85027

== ENCOUNTER 2023-09-24 13:03 | Outpatient (AMB) | payer MEDICARE, MEDICAID, SELFPAY ==
[2023-09-24 13:05] VITALS: BP 114/56; PULSE 76; O2SAT 94; BMI 26.8
--- NOTE | 2023-09-24 13:05 | HO.NEPHOV ---
Vital Signs 09/24/23 13:05 Height 5 ft 6 in Weight 166 lb BMI 26.8 BP 114/56 L Blood Pressure Location Rt brachial Position Sitting Pulse 76 Pulse Source Pulse Oximeter Pulse Oximetry (%) 94 Oxygen Delivery Method Room Air Intake Visit Reasons: BPH/ 4 MO FU/ Conf Clark Driver Required: No Accompanied by: Self / Same As Patient Allergies finasteride Adverse Reaction (Intermediate, Verified 09/24/23 13:07) rash lisinopril Adverse Reaction (Intermediate, Verified 09/24/23 13:07) hyperkalemia Shellfish Allergy (Mild, Uncoded 06/25/23 12:48) NOT APPLICABLE HPI Comments Details: 77 yr old man with long standing HTN and DM with CKD h/o Colon CA s/p surgery and Chemo in 2010 Creatinine was 1.5 and 1.4 in December 2022 and hence this referral Also had hypercalcemia of 10.4 mg/dL h/o Varicose veins - s/p surgery an dnow with leg ulcers Being followed by wound clinic Recently completed a course of antibiotics [facility] Medical History (Updated 06/25/23 @ 13:06 by Allen Sevilla MD) Atherosclerotic cardiovascular disease Ischemic cardiomyopathy Essential hypertension Colon cancer Type 2 diabetes mellitus with hyperglycemia Hypercholesterolemia Diabetic nephropathy Vitamin D deficiency Peripheral vascular disease Coronary artery disease Generalized osteoarthritis Asthma Surgical History History of vascular surgery S/P sclerotherapy of varicose veins Family History Father Hypertension Mother CVD (cardiovascular disease) Hypertension Maternal Uncle Prostate cancer Social History Housing: House Alcohol intake: former Patient Tobacco Use Status: Never used Tobacco e-Cigarette/Vaping Use: Never Used Second Hand Smoke Exposure: No Advance Directives Date on File: 02/03/21 service: Yes Current occupational status: retired and disabled Current occupational exposures/hazards: No Cognitive needs: Yes Hearing needs: No Vision needs: No Physical Exam Vital Signs: Last Vital Signs Pulse 76 09/24/23 13:05 BP 114/56 L 09/24/23 13:05 Pulse Ox 94 09/24/23 13:05 Oxygen Delivery Method Room Air 09/24/23 13:05 BMI result Body Mass Index 26.8 Const General: comfortable Nutritional Appearance: well nourished Orientation/consciousness: patient oriented x3 HEENT Head: No normal to inspection Mouth: moist mucous membranes Neck Neck: Yes supple and Yes no JVD Resp Auscultation: clear to auscultation bilaterally, no rales and rub present Cardio Jugular venous distension: no JVD Palpation: no palpable S3 and no palpable S4 Heart sounds: no rubs GI Palpation (GI): Soft to palpation and nontender Percussion: No Fluid wave present General: Yes no CVA tenderness Back/Spine/Pelvis Back: no CVA tenderness Skin Wounds: wounds noted Neuro General: patient oriented x3 Results Reviewed Nephrology Results: Hgb 13.2 g/dl (14.0-18.0) L 09/17/23 WBC 8.4 X10*3/uL (4.8-10.8) 09/17/23 Plt Count 146 X10*3/uL (160-400) L 09/17/23 Sodium 141 mmol/L (135-145) 09/17/23 Potassium 5.1 mmol/L (3.3-5.1) 09/17/23 Chloride 108 mmol/L (96-108) 09/17/23 Carbon Dioxide 24 mmol/L (22-29) 09/17/23 BUN 34 mg/dL (9-16) H 09/17/23 Creatinine 1.61 mg/dL (0.5-1.4) H 09/17/23 Calcium 10.1 mg/dL (8.4-10.2) 09/17/23 PTH Intact 93.1 pg/mL (8.7-77.1) H 04/16/23 Urine Protein 100 (2+) mg/dL (Neg-Trace) H 09/17/23 Urine Creatinine 111.69 mg/dL 04/16/23 Assessment & Plan Assessment & Plan (1) Chronic kidney disease: Code(s): N18.9 - Chronic kidney disease, unspecified Category: Medical Plan: CKD 3 most likely due to hypertensive diabetic kidney disease Non diabetic causes seem unlikely based on recent work up Non nephrotic range proteinuria due to Diabetic kidney disease CT scan showed cortical thinning. NO hydro in the past In the meantime, Avoid nephrotoxins Agree with ACEi and SGLT-2 inhibitors GLycosuria due to SGLT-2 inhibitors (2) BPH (benign prostatic hyperplasia): Code(s): N40.0 - Benign prostatic hyperplasia without lower urinary tract symptoms Category: Medical Plan: Follow with Urology (3) Hypercalcemia: Code(s): E83.52 - Hypercalcemia Category: Medical Plan: REpeat Ca is normal SPEP - no MCGP Coding Level of Care Code Est Pt Level 4 (40136) Diagnoses Chronic kidney disease N18.9 BPH (benign prostatic hyperplasia) N40.0 Hypercalcemia E83.52
== END 2023-09-24 13:26 | disposition home or self-care (01) ==
PROVIDERS: PCP Internal Medicine; Visit Provider Internal Medicine Hypertension Specialist
DX: N18.9 Chronic kidney disease, unspecified (principal); N40.0 Benign prostatic hyperplasia without lower urinary tract symptoms; E83.52 Hypercalcemia
CPT/HCPCS: 99214

== ENCOUNTER → 2023-09-24 13:03 | Outpatient (BNVA) | payer MEDICARE, MEDICAID, SELFPAY | PROVIDERS: PCP Internal Medicine; Visit Provider Internal Medicine Hypertension Specialist | DX: E11.22 Type 2 diabetes mellitus with diabetic chronic kidney disease (principal); I12.9 Hypertensive chronic kidney disease with stage 1 through stage 4 chronic kidney disease, or unspecified chronic kidney disease; N18.30 Chronic kidney disease, stage 3 unspecified; N40.0 Benign prostatic hyperplasia without lower urinary tract symptoms; E83.52 Hypercalcemia | CPT/HCPCS: 99212 ==

== ENCOUNTER 2023-10-29 08:12 | Outpatient (REF) | payer MEDICARE, MEDICAID, SELFPAY ==
[2023-10-29 10:24] LABS: MANUAL DIFF FLAG NO
[2023-10-29 10:30] LABS: Basophils Absolute Auto 0.1 X10*3/uL (0.0-0.2); Basophils Percent Auto 0.6 % (0-2); Eosinophils Absolute Auto 0.2 X10*3/uL (0.0-0.4); Eosinophils Percent Auto 2.2 % (0-4); Hematocrit 41.4 % (42.0-52.0); Hemoglobin 13.9 g/dl (14.0-18.0); Imm Gran Abs Auto 0.03 X10*3/uL (0.00-0.03); Imm Gran Pct Auto 0.4 % (0.0-0.4); Lymphocytes Percent Auto 13.2 % (20-40); Mean Corpuscular HGB Conc 33.6 g/dl (31.0-36.0); Mean Corpuscular Hemoglobin 30.5 pg (27.0-33.0); Mean Corpuscular Volume 90.8 fL (80.0-98.0); Mean Platelet Volume 11.7 fL (9.4-12.4); Monocytes Absolute Auto 0.7 X10*3/uL (0.1-1.2); Monocytes Percent Auto 8.8 % (2-11); Neutrophils Absolute Auto 5.9 x10*3/uL (2.0-8.3); Neutrophils Percent Auto 74.8 % (45-73); Platelet Count 137 X10*3/uL (160-400); Red Blood Count 4.56 X10*6/uL (4.60-5.80); Red Cell Distribution Width 14.2 % (11.0-16.0); Retic HGB Equivalent 34.1 pg (30.0-35.0); Reticulocyte Percent 1.9 % (0.5-1.8); Reticulocytes Absolute 0.086 X10*6/uL (0.026-0.095); White Blood Count 7.8 X10*3/uL (4.8-10.8)
[2023-10-29 10:53] LABS: Estimated Average Glucose 117 mg/dL; Hemoglobin A1c % 5.7 % (<6.0)
[2023-10-29 10:55] LABS: Alanine Aminotransferase 36 U/L (0-40); Alkaline Phosphatase 90 U/L (39-117); Anion Gap 13 (12-20); Aspartate Amino Transferase 32 U/L (5-37); Bilirubin Total 1.1 mg/dL (0.0-1.0); Blood Urea Nitrogen 33 mg/dL (9-16); Carbon Dioxide 26 mmol/L (22-29); Chloride 107 mmol/L (96-108); Cholesterol 123 mg/dL (<200); Estimated Glomerular Filt Rate 45; Glucose Random 131 mg/dL (60-115); HDL Cholesterol 44 mg/dL (>40); Iron 65 mcg/dL (45-160); LDL Cholesterol Calculated 58 mg/dL (<100); Percent Iron Saturation 22 % (15-50); Potassium 4.7 mmol/L (3.3-5.1); Sodium 141 mmol/L (135-145); Total Iron Binding Capacity 298 mcg/dL (228-428); Total Protein 7.6 g/dL (6.5-8.0); Triglycerides 105 mg/dL (<150); Unsaturated Iron Binding 233 ug/dL; Uric Acid 4.5 mg/dL (3.4-7.0)
[2023-10-29 11:02] LABS: Creatinine Urine 71.44 mg/dL
[2023-10-29 11:12] LABS: Ferritin 39 ng/mL (20-250); Free T4 (Free Thyroxine) 1.11 ng/dL (0.71-1.85); Thyroid Stimulating Hormone 3.07 uIU/mL (0.32-4.0)
[2023-10-29 11:21] LABS: Microalbum/Creatinine Ratio Ur 1882.6 ug/mg cr (<30)
[2023-10-29 11:24] LABS: Folate 12.5 ng/mL (> or = 4.0); Vitamin B12 1047 pg/mL (200-900)
== END 2023-10-29 08:13 | disposition home or self-care (01) ==
LOC: HO.10HDL 08:12
PROVIDERS: Visit Provider Internal Medicine
DX: E11.65 Type 2 diabetes mellitus with hyperglycemia (principal); E78.00 Pure hypercholesterolemia, unspecified
CPT/HCPCS: 36415; 80053; 80061; 82043; 82570; 82607; 82728; 82746; 83036; 83540; 84439; 84443; 84550; 85025; 85045

== ENCOUNTER 2023-11-05 12:47 | Outpatient (AMB) | payer MEDICARE, MEDICAID, SELFPAY ==
--- NOTE | 2023-11-05 12:49 | A.OFFPC_ITS ---
Vital Signs 11/05/23 12:50 Height 5 ft 6 in Weight 166 lb 8 oz BMI 26.9 BP 130/70 Blood Pressure Location Lt brachial Position Sitting Pulse 66 Pulse Source Pulse Oximeter Pulse Oximetry (%) 94 Oxygen Delivery Method Room Air Intake Visit Reasons: Dermatitis venous stasis, diabetes Director Of Business Applications Required: No Accompanied by: Self / Same As Patient Allergies finasteride Adverse Reaction (Intermediate, Verified 11/05/23 12:50) rash lisinopril Adverse Reaction (Intermediate, Verified 11/05/23 12:50) hyperkalemia Shellfish Allergy (Mild, Uncoded 11/05/23 12:50) NOT APPLICABLE Tobacco use date assessed: 11/05/23 Fall risk assessment: No Falls in past year Last assessed Fall Risk: 11/05/23 Dental Screening Dental Screen Date: 11/05/23 Did you have a dental visit in the last 12 months?: No Did you have a dental problem in the last 6 months where you did not have access to dental care?: No Was dental information given to patient?: No HPI Dermatitis venous stasis, diabetes HPI Details 77-year-old overweight male with control led diabetes mellitus coronary artery disease hypercholesterolemia , colon cancer status post surgery and chemo 2010 chronic kidney disease asthma hypertension and venous stasis dermatitis coming in for follow-up. Last seen in June 2023. Patient has declined colonoscopy. Patient follows up with Nephrology seen in 09/24/2023 also having hypercalcemia. 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 Continue with MERLINE inhibitor and SGLT2 inhibitors. Patient also follows up with Cardiology STEMI 2006 late stent thrombosis of LAD stent. With a history of right coronary artery stenting in the past. On Plavix continue with statins echocardiogram 2019 EF of 40-45% advised echocardiogram in 1 year. [facility] Medical History (Updated 06/25/23 @ 13:06 by Allen Sevilla MD) Atherosclerotic cardiovascular disease Ischemic cardiomyopathy Essential hypertension Colon cancer Type 2 diabetes mellitus with hyperglycemia Hypercholesterolemia Diabetic nephropathy Vitamin D deficiency Peripheral vascular disease Coronary artery disease Generalized osteoarthritis Asthma Surgical History History of vascular surgery S/P sclerotherapy of varicose veins Family History Father Hypertension Mother CVD (cardiovascular disease) Hypertension Maternal Uncle Prostate cancer Social History Housing: House Alcohol intake: former Patient Tobacco Use Status: Never used Tobacco e-Cigarette/Vaping Use: Never Used Second Hand Smoke Exposure: No Advance Directives Date on File: 02/03/21 service: Yes Current occupational status: retired and disabled Current occupational exposures/hazards: No Cognitive needs: Yes Hearing needs: No Vision needs: No Questionnaire PHQ-9 Over the last 2 weeks, how often have you been bothered by any of the following problems? 1. Little interest or pleasure in doing things: not at all 2. Feeling down, depressed, or hopeless: not at all 3. Trouble falling or staying asleep, or sleeping too much: not at all 4. Feeling tired or having little energy: not at all 5. Poor appetite or overeating: not at all 6. Feeling bad about yourself - or that you are a failure or have let yourself or your family down: not at all 7. Trouble concentrating on things, such as reading the newspaper or watching television: not at all 8. Moving or speaking so slowly that other people could have noticed. Or the opposite - being so fidgety or restless that you have been moving around a lot more than usual: not at all 9. Thoughts that you would be better off or of hurting yourself in some way: not at all Total score: 0 Depression Screening Interpretation: Negative Depression Screening Done: Yes Source: Developed by Drs. Leonel King, Sherry Rosales, Herman Rodriguez and colleagues, with an educational sandi from [employer]. Thrive Questionnaire Date Thrive assessed: 11/05/23 I am a: Parent/Caregiver What is your living situation today?: I have a steady place to live Within the past 12 months, did the food you bought not last and you didn't have the money to get more?: Never true Within the past 12 months, did you worry whether your food would run out before you got money to buy more?: Never true Do you have trouble paying for medicines?: No Do you have trouble getting transportation to medical appointments?: No Do you have trouble paying your heating and electricity bill?: No Do you have trouble taking care of your child, family member or friend?: No Do you have trouble with day-to-day activities such as bathing, preparing meals, shopping, managing finances, etc.?: No Are you currently unemployed and looking for a job?: No Are you interested in more education?: No Please select the resources that you would like help with: None Currently or been in a relationship where the following occur: No concerns reported THRIVE Score: 0 AUDIT C Alcohol Use Questionnaire (AUDIT-C) 1. How often do you have a drink containing alcohol?: Never 3. How often do you have six or more drinks on one occasion?: Never Total Score: 0 Score Reviewed/Action Taken: No BALJIT-7 AMB Questionnaire BALJIT-7 Date BALJIT - 7 assessed: 11/05/23 Feeling nervous, anxious, or on edge: 0 = Not at all Not being able to stop or control worryin = Not at all Worrying too much about different things: 0 = Not at all Trouble relaxin = Not at all Being so restless that it is hard to sit still: 0 = Not at all Becoming easily annoyed or irritable: 0 = Not at all Feeling afraid as if something awful might happen: 0 = Not at all Total BALJIT-7 score (0-4 normal; 5-9 mild; 10-14 moderate; 15-21 severe): 0 Source: Developed by Drs. Leonel King, Sherry Rosales, Herman Rodriguez and colleagues, with an educational sandi from [employer]. Physical exam (Primary Care) Vital Signs: Last Vital Signs Pulse 66 11/05/23 12:50 BP 130/70 11/05/23 12:50 Pulse Ox 94 11/05/23 12:50 Oxygen Delivery Method Room Air 11/05/23 12:50 BMI result Body Mass Index 26.9 Tobacco/Smoking Status: Tobacco use Status Tobacco use date assessed 11/05/23 11/05/23 12:51 Patient Tobacco Use Status Never used Tobacco 11/05/23 12:51 Tobacco use type 03/27/23 10:36 e-Cigarette/Vaping Use Never Used 11/05/23 12:51 PHQ-9: PHQ-9 Score PHQ-9: Total score 0 11/05/23 12:58 Depression Screening Interpretation: Negative Thrive Assessment: Date of Thrive Assessment Date Thrive assessed 11/05/23 11/05/23 12:51 Currently or been in a relationship where the following occur: No concerns reported Const General: alert; No acute distress Eyes Conjunctivae: conjunctivae normal Resp Auscultation: clear to auscultation bilaterally Cardio Rate: regular rate Rhythm: regular rhythm GI Inspection: Yes normal to inspection Extrem General: Yes normal to inspection and No edema Assessment and Plan Assessment & Plan (1) Coronary artery disease: Comment: Stent placement 2003 [place] October 2006 echocardiogram November 2016 EF 40-45% ischemic cardiomyopathy myocardial perfusion January 2017 is ejection fraction 40% Code(s): I25.10 - Atherosclerotic heart disease of [place] coronary artery without angina pectoris Qualifiers: Coronary Disease-Associated Artery/Lesion type: [place] artery [place] vs. transplanted heart: [place] heart Associated angina: without angina Qualified Code(s): I25.10 - Atherosclerotic heart disease of [place] coronary artery without angina pectoris Plan: Control the cholesterol, weight, blood pressure, diabetes on Plavix (2) Hypercholesterolemia: Code(s): E78.00 - Pure hypercholesterolemia, unspecified Plan: Avoid fried foods, chicken skin, eggs, butter margarine, pastries and meat. Be it pork or beef they have a lot of cholesterol LDL goal of less than 70 and triglyceride of less than 150. On rosuvastatin 20 mg once a day (3) Type 2 diabetes mellitus with hyperglycemia: Comment: Dr. Villagomez Code(s): E11.65 - Type 2 diabetes mellitus with hyperglycemia Qualifiers: Diabetes mellitus custodial insulin use: without custodial use Qualified Code(s): E11.65 - Type 2 diabetes mellitus with hyperglycemia Plan: Decrease the amount of carbohydrate intake, pasta, bread, rice and potatoes are all sugar and that is aside from all the sweet stuff, remember that fruits are good but they are Sweet also. Hemoglobin A1c goal of less than 7.0 takes Tradjenta 5 mg once a day glimepiride 2 mg once a day and Farxiga 5 mg once a day (4) Chronic kidney disease: Code(s): N18.9 - Chronic kidney disease, unspecified Plan: Avoid NSAIDs, keep well hydrated continue with Farxiga (5) Essential hypertension: Code(s): I10 - Essential (primary) hypertension Plan: Continue with blood pressure medication. Decrease salt intake and exercise takes amlodipine 10 mg once a day metoprolol 50 mg twice a day (6) Colon cancer: Comment: 2003 Dr. Piedra chemotherapy August 2010 Code(s): C18.9 - Malignant neoplasm of colon, unspecified Plan: Discussed about follow-up with the surgeon as well as colon testing patient declined. (7) Venous stasis dermatitis: Code(s): I87.2 - Venous insufficiency (chronic) (peripheral) Plan: When sitting down elevate the legs, exercise, and support stockings Orders: Orders Comprehensive Met. Panel 4 Months E11.65 - Type 2 diabetes mellitus with hyperglycemia Lipid Panel 4 Months E11.65 - Type 2 diabetes mellitus with hyperglycemia, E78.00 - Pure hypercholesterolemia, unspecified Thyroid Stimulating Hormone 4 Months E11.65 - Type 2 diabetes mellitus with hyperglycemia Vitamin B12 and Folate 4 Months E11.65 - Type 2 diabetes mellitus with hyperglycemia Complete Blood Count Auto Diff 4 Months E11.65 - Type 2 diabetes mellitus with hyperglycemia Hemoglobin A1c 4 Months E11.65 - Type 2 diabetes mellitus with hyperglycemia Free T4 (Free Thyroxine) 4 Months E11.65 - Type 2 diabetes mellitus with hyperglycemia Coding Level of Care Code Est Pt Level 4 (98609) Diagnoses Coronary artery disease involving [place] coronary artery of [place] heart without angina pectoris I25.10 Coronary Disease-Associated Artery/Lesion type: [place] artery [place] vs. transplanted heart: [place] heart Associated angina: without angina Hypercholesterolemia E78.00 Type 2 diabetes mellitus with hyperglycemia, without long-term current use of insulin E11.65 Diabetes mellitus custodial insulin use: without custodial use Chronic kidney disease N18.9 Essential hypertension I10 Colon cancer C18.9 Venous stasis dermatitis I87.2 Additional Codes PHQ-9 - 71736 - PHQ-9 Billing: ([id number])
[2023-11-05 12:50] VITALS: BP 130/70; PULSE 66; O2SAT 94; BMI 26.9
== END 2023-11-05 13:41 | disposition home or self-care (01) ==
PROVIDERS: PCP Internal Medicine; Visit Provider Internal Medicine
DX: I12.9 Hypertensive chronic kidney disease with stage 1 through stage 4 chronic kidney disease, or unspecified chronic kidney disease (principal); E11.65 Type 2 diabetes mellitus with hyperglycemia; N18.9 Chronic kidney disease, unspecified; C18.9 Malignant neoplasm of colon, unspecified; I25.10 Atherosclerotic heart disease of native coronary artery without angina pectoris; E78.00 Pure hypercholesterolemia, unspecified; I87.2 Venous insufficiency (chronic) (peripheral)
CPT/HCPCS: 99214

== ENCOUNTER 2024-01-28 08:07 | Outpatient (REF) | payer MEDICARE, MEDICAID, SELFPAY ==
[2024-01-28 10:46] LABS: MANUAL DIFF FLAG NO
[2024-01-28 10:51] LABS: Appearance Urine Clear; Basophils Absolute Auto 0.1 X10*3/uL (0.0-0.2); Basophils Percent Auto 0.8 % (0-2); Color Urine Yellow; Eosinophils Absolute Auto 0.3 X10*3/uL (0.0-0.4); Eosinophils Percent Auto 3.3 % (0-4); Glucose Urine UA >=1000 mg/dL (Negative); Hematocrit 41.3 % (42.0-52.0); Hemoglobin 13.5 g/dl (14.0-18.0); Imm Gran Abs Auto 0.04 X10*3/uL (0.00-0.03); Imm Gran Pct Auto 0.4 % (0.0-0.4); Leukocyte Esterase Urine Negative (Negative); Lymphocytes Absolute Auto 1.4 X10*3/uL (1.2-4.9); Lymphocytes Percent Auto 14.8 % (20-40); Mean Corpuscular HGB Conc 32.7 g/dl (31.0-36.0); Mean Corpuscular Hemoglobin 30.1 pg (27.0-33.0); Mean Platelet Volume 11.3 fL (9.4-12.4); Monocytes Absolute Auto 0.8 X10*3/uL (0.1-1.2); Monocytes Percent Auto 8.7 % (2-11); Neutrophils Absolute Auto 6.6 x10*3/uL (2.0-8.3); Nitrite Urine Negative (Negative); Platelet Count 158 X10*3/uL (160-400); Red Blood Count 4.49 X10*6/uL (4.60-5.80); Red Cell Distribution Width 13.9 % (11.0-16.0); UMIC TRIGGER UA YES; Urine Blood Negative (Negative); Urine Ketones Negative (Negative); Urine Protein 100 (2+) mg/dL (Neg-Trace); White Blood Count 9.2 X10*3/uL (4.8-10.8)
[2024-01-28 10:59] LABS: Estimated Average Glucose 126 mg/dL; Total Hemoglobin (HGBA1C) 3528.0687 umol/L
[2024-01-28 11:01] LABS: Bacteria Urine None Seen (None Seen); Hyaline Casts Urine 0-2 /LPF (0-2); RBC Urine 0-2 /HPF (0-2); Squamous Epithelial Cell Urine 0-2 /HPF (0-2); WBC Urine 0-5 /HPF (0-5)
[2024-01-28 11:11] LABS: Alanine Aminotransferase 40 U/L (0-40); Albumin Level 4.1 g/dL (3.5-5.0); Alkaline Phosphatase 94 U/L (39-117); Anion Gap 11 (12-20); Aspartate Amino Transferase 39 U/L (5-37); Blood Urea Nitrogen 37 mg/dL (9-16); Calcium 9.6 mg/dL (8.4-10.2); Carbon Dioxide 26 mmol/L (22-29); Chloride 105 mmol/L (96-108); Cholesterol 126 mg/dL (<200); Estimated Glomerular Filt Rate 40; Glucose Random 129 mg/dL (60-115); HDL Cholesterol 42 mg/dL (>40); LDL Cholesterol Calculated 63 mg/dL (<100); Potassium 4.7 mmol/L (3.3-5.1); Sodium 137 mmol/L (135-145); Total Protein 7.8 g/dL (6.5-8.0); Triglycerides 106 mg/dL (<150)
[2024-01-28 11:37] LABS: Free T4 (Free Thyroxine) 1.25 ng/dL (0.71-1.85); Thyroid Stimulating Hormone 4.78 uIU/mL (0.32-4.0)
[2024-01-28 11:39] LABS: Creatinine Urine 76.42 mg/dL
[2024-01-28 11:48] LABS: Folate 13.4 ng/mL (> or = 4.0); Vitamin B12 1623 pg/mL (200-900)
== END 2024-01-28 08:08 | disposition home or self-care (01) ==
LOC: HO.10HDL 08:07
PROVIDERS: Internal Medicine; Internal Medicine Hypertension Specialist; Visit Provider Urology
DX: Z12.5 Encounter for screening for malignant neoplasm of prostate (principal); N40.0 Benign prostatic hyperplasia without lower urinary tract symptoms; E78.00 Pure hypercholesterolemia, unspecified; E11.65 Type 2 diabetes mellitus with hyperglycemia
CPT/HCPCS: 36415; 80053; 80061; 81001; 82570; 82607; 82746; 83036; 84153; 84439; 84443; 85025

== ENCOUNTER 2024-02-04 14:46 | Outpatient (AMB) | payer MEDICARE, MEDICAID, SELFPAY ==
--- NOTE | 2024-02-04 13:24 | MHC.OFFVIS ---
Intake Visit Reasons: 6 month/ PSA Intake Note: Patient is present for 6M/F/U Urology Medication:ALFUZOSIN,VITAMIN B12 Antibiotic Allergy:NONE Blood Thinner:NONE Web User Experience Strategist Required: No Allergies finasteride Adverse Reaction (Intermediate, Verified 02/04/24 14:49) rash lisinopril Adverse Reaction (Intermediate, Verified 02/04/24 14:49) hyperkalemia Shellfish Allergy (Mild, Uncoded 02/04/24 14:49) NOT APPLICABLE HPI Comments Details: 02/04/24--Michael is a 78-year-old male who presents today to the office for FU. He was initially evaluated on 02/15/23 for an evaluation of incomplete bladder emptying and BPH. He was started on proscar. He completed his AUA symptoms score questionnaire resulting in 18. He denies any history of cigarette smoking. He states the alfuzosin is working well/ Discussed PSA--01/28/24--1.80. Plan will continue alfuzosin daily follow-up in 1 year PSA prior Review of chart: 04/05/23-- FU states stopped the proscar because he got a rash. He declines cystoscopy for today. PMH- DM, colon cancer s/p chemo, CAD, PVD. He complains of nocturia x 3, daytime urinary frequency. Denies dysuria I have reviewed the lab results from 01/04/2023 revealed creatinine 1.4 and BUN was 10. I have reviewed Bladder US 12/28/22- BLADDER: Partially distended, limiting evaluation. Bilateral ureteral jets are demonstrated. Prevoid bladder volume is 138 mL. Postvoid bladder volume is 68.8 mL. Prostate volume is 52.5 mL. Enlarged, heterogeneous lobulated prostate gland with echogenic foci characteristic of coarse calcifications. Plan: Alfuzosin 10 mg, d/c proscar. FU in 6 months, PSA prior PFSH Medical History Atherosclerotic cardiovascular disease Ischemic cardiomyopathy Essential hypertension Colon cancer Type 2 diabetes mellitus with hyperglycemia Hypercholesterolemia Diabetic nephropathy Vitamin D deficiency Peripheral vascular disease Coronary artery disease Generalized osteoarthritis Asthma Surgical History History of vascular surgery S/P sclerotherapy of varicose veins Family History Father Hypertension Mother CVD (cardiovascular disease) Hypertension Maternal Uncle Prostate cancer Social History Housing: House Alcohol intake: former Patient Tobacco Use Status: Never used Tobacco e-Cigarette/Vaping Use: Never Used Second Hand Smoke Exposure: No Advance Directives Date on File: 02/03/21 service: Yes Current occupational status: retired and disabled Current occupational exposures/hazards: No Cognitive needs: Yes Hearing needs: No Vision needs: No Review of Systems Const All systems reviewed & are unremarkable except as noted in HPI and below Reports no additional complaints Eyes Reports no additional complaints ENT Reports no additional complaints Card Reports no additional complaints Resp Reports no additional complaints GI Reports no additional complaints Reports as per HPI Musc Reports no additional complaints Skin/Breast Reports system reviewed and no additional complaints, except as documented Neuro Reports no additional complaints Psych Reports no additional complaints Endo Reports no additional complaints Mario/Lymph Reports no additional complaints Aller/Immun Reports no additional complaints Results AMB Urinalysis, Automated UA Leukoctes 0 Alicia/uL Last Edit by KIM Stallworth on 02/04/24 15:16 UA Nitrite Negative Last Edit by KIM Stallworth on 02/04/24 15:16 UA Urobilinogen 0.2 mg/dL Last Edit by KIM Stallworth on 02/04/24 15:16 UA Protein 300 mg/dL Last Edit by KIM Stallworth on 02/04/24 15:16 UA pH 6.0 Last Edit by Juan Quiles CCM on 02/04/24 15:16 UA Blood 10 Umesh/uL Last Edit by Juan Quiles CCM on 02/04/24 15:16 UA Specific Calvin 1.020 Last Edit by KIM Stallworth on 02/04/24 15:16 UA Ketone Negative Last Edit by KIM Stallworth on 02/04/24 15:16 UA Bilirubin 0 mg/dL Last Edit by KIM Stallworth on 02/04/24 15:16 UA Glucose 1000 mg/dL Last Edit by Juan Quiles CCM on 02/04/24 15:16 Results Reviewed Results Reviewed: Date of Service: 12/28/22 EXAMINATION: US PELVIS LIMITED (BLADDER) CLINICAL INFORMATION: Frequency of micturition. COMPARISON: CT abdomen and pelvis without and with contrast dated 07/19/2020. Ultrasound abdomen complete dated 07/11/2010 and 09/22/2005. FINDINGS: BLADDER: Partially distended, limiting evaluation. Bilateral ureteral jets are demonstrated. Prevoid bladder volume is 138 mL. Postvoid bladder volume is 68.8 mL. Prostate volume is 52.5 mL. Enlarged, heterogeneous lobulated prostate gland with echogenic foci characteristic of coarse calcifications. IMPRESSION: Enlarged, heterogeneous lobulated prostate gland. Postvoid bladder volume 68.8 mL Assessment & Plan Assessment & Plan (1) Chronic kidney disease: Code(s): N18.9 - Chronic kidney disease, unspecified Category: Medical (2) BPH (benign prostatic hyperplasia): Code(s): N40.0 - Benign prostatic hyperplasia without lower urinary tract symptoms Category: Medical (3) Frequency of micturition: Code(s): R35.0 - Frequency of micturition Category: Medical (4) Feeling of incomplete bladder emptying: Code(s): R39.14 - Feeling of incomplete bladder emptying Category: Medical (5) Screening for prostate cancer: Code(s): Z12.5 - Encounter for screening for malignant neoplasm of prostate Category: Medical Plan Plan will continue alfuzosin daily follow-up in 1 year PSA prior Orders: Orders Prostate Specific Antigen 01/28/24 N40.0 - Benign prostatic hyperplasia without lower urinary tract symptoms PSA,Total (Free>4and<10) 11 Months N40.0 - Benign prostatic hyperplasia without lower urinary tract symptoms, Z12.5 - Encounter for screening for malignant neoplasm of prostate AMB Urinalysis Automated Today Z13.9 - Encounter for screening, unspecified Patient Instructions: The patient had an opportunity to ask questions regarding treatment plan. The patient expressed understanding and agreement with the above treatment plan. The patient is aware they should contact our office by phone for worsening of their current condition or the appearance of new symptoms. Compliance is encouraged with any medications and followup testing that is ordered. It is a privilege to be allowed the opportunity to participate in the urologic care of your patient. If you have any questions or concerns regarding treatment for the above conditions please do not hesitate to contact me. The office telephone contact is [phone]. This note is constructed in part using voice recognition software. While every effort has been made to ensure accuracy systems integration advisor errors may have been included. Yours sincerely, Puneet Simeon MD Coding Level of Care Code Est Pt Level 4 (46696) Diagnoses Chronic kidney disease N18.9 BPH (benign prostatic hyperplasia) N40.0 Frequency of micturition R35.0 Feeling of incomplete bladder emptying R39.14 Screening for prostate cancer Z12.5
== END 2024-02-04 15:26 | disposition home or self-care (01) ==
PROVIDERS: PCP Internal Medicine; Visit Provider Urology
DX: N18.9 Chronic kidney disease, unspecified (principal); N40.0 Benign prostatic hyperplasia without lower urinary tract symptoms; R35.0 Frequency of micturition; R39.14 Feeling of incomplete bladder emptying; Z12.5 Encounter for screening for malignant neoplasm of prostate; Z13.9 Encounter for screening, unspecified
CPT/HCPCS: 99214

== ENCOUNTER → 2024-02-04 14:46 | Outpatient (BNVA) | payer MEDICARE, MEDICAID, SELFPAY | PROVIDERS: PCP Internal Medicine; Visit Provider Urology | DX: N40.1 Benign prostatic hyperplasia with lower urinary tract symptoms (principal); R39.14 Feeling of incomplete bladder emptying; R35.0 Frequency of micturition; N18.9 Chronic kidney disease, unspecified; Z12.5 Encounter for screening for malignant neoplasm of prostate | CPT/HCPCS: 81003; 99212 ==

== ENCOUNTER 2024-02-18 13:18 | Outpatient (AMB) | payer MEDICARE, MEDICAID, SELFPAY ==
[2024-02-18 13:19] VITALS: BP 136/60; PULSE 74; O2SAT 93; BMI 27.3
--- NOTE | 2024-02-18 13:19 | HO.NEPHOV_ITS ---
Vital Signs 02/18/24 13:19 Height 5 ft 6 in Weight 169 lb BMI 27.3 BP 136/60 Blood Pressure Location Lt brachial Position Sitting Pulse 74 Pulse Source Pulse Oximeter Pulse Oximetry (%) 93 Oxygen Delivery Method Room Air Intake Visit Reasons: Dec follow up/ Conf Ceramic Tile Installation Helper Required: No Accompanied by: Self / Same As Patient Allergies finasteride Adverse Reaction (Intermediate, Verified 02/18/24 13:21) rash lisinopril Adverse Reaction (Intermediate, Verified 02/18/24 13:21) hyperkalemia Shellfish Allergy (Mild, Uncoded 02/04/24 14:49) NOT APPLICABLE Medication List - Last Reconciled 02/18/24 by Maximo Campbell MD adhesive tape As directed albuterol sulfate 90 mcg/actuation (Ventolin HFA) 2 puffs inhalation Q6H PRN alfuzosin ER 10 mg PO DAILY amlodipine 10 mg PO DAILY [ANTIBACTERIAL GAUZE PAD 4x4 inches As directed] cholecalciferol (vitamin D3) 25 mcg PO DAILY clopidogrel 75 mg PO DAILY cyanocobalamin (vitamin B-12) 1,000 mcg PO DAILY dapagliflozin propanediol (Farxiga) 5 mg PO DAILY [disposable chux As directed] disposable gloves large gloves elastic bandage ([place]an Self-Adherent Wrap) As directed gabapentin 100 mg PO BEDTIME glimepiride 2 mg PO QAM hydrocortisone 2.5% 1 appl topical BID PRN [Large Gauze Pads CURAD 4 x 4 in As directed] linagliptin (Tradjenta) 5 mg PO DAILY metoprolol tartrate 50 mg PO BID 90 days mometasone-formoterol 200-5 mcg/actuation (Dulera) 2 puffs inhalation BID non-adherent bandage (Curity Abdominal Pad) As directed rosuvastatin 20 mg PO DAILY tramadol 50 mg PO Q8H PRN 90 days HPI Comments Details: 77 yr old man with long standing HTN and DM with CKD h/o Colon CA s/p surgery and Chemo in 2010 Creatinine was 1.5 and 1.4 in December 2022 and hence this referral Also had hypercalcemia of 10.4 mg/dL h/o Varicose veins - s/p surgery an dnow with leg ulcers Being followed by wound clinic Recently completed a course of antibiotics [facility] Medical History Atherosclerotic cardiovascular disease Ischemic cardiomyopathy Essential hypertension Colon cancer Type 2 diabetes mellitus with hyperglycemia Hypercholesterolemia Diabetic nephropathy Vitamin D deficiency Peripheral vascular disease Coronary artery disease Generalized osteoarthritis Asthma Surgical History History of vascular surgery S/P sclerotherapy of varicose veins Family History Father Hypertension Mother CVD (cardiovascular disease) Hypertension Maternal Uncle Prostate cancer Social History Housing: House Alcohol intake: former Patient Tobacco Use Status: Never used Tobacco e-Cigarette/Vaping Use: Never Used Second Hand Smoke Exposure: No Advance Directives Date on File: 02/03/21 service: Yes Current occupational status: retired and disabled Current occupational exposures/hazards: No Cognitive needs: Yes Hearing needs: No Vision needs: No Physical Exam Vital Signs: Last Vital Signs Pulse 74 02/18/24 13:19 BP 136/60 02/18/24 13:19 Pulse Ox 93 02/18/24 13:19 Oxygen Delivery Method Room Air 02/18/24 13:19 BMI result Body Mass Index 27.3 Comfortable Neck supple no JVD. Lungs entry equal no rales. Heart S1-S2 heard no gallop or rub. Abdomen soft nontender. Neuro alert awake oriented. No asterixis. Extremities no edema. Results Reviewed Nephrology Results: Hgb 13.5 g/dl (14.0-18.0) L 01/28/24 WBC 9.2 X10*3/uL (4.8-10.8) 01/28/24 Plt Count 158 X10*3/uL (160-400) L 01/28/24 Sodium 137 mmol/L (135-145) 01/28/24 Potassium 4.7 mmol/L (3.3-5.1) 01/28/24 Chloride 105 mmol/L (96-108) 01/28/24 Carbon Dioxide 26 mmol/L (22-29) 01/28/24 BUN 37 mg/dL (9-16) H 01/28/24 Creatinine 1.69 mg/dL (0.5-1.4) H 01/28/24 Calcium 9.6 mg/dL (8.4-10.2) 01/28/24 Urine Protein 100 (2+) mg/dL (Neg-Trace) H 01/28/24 Urine Creatinine 76.42 mg/dL 01/28/24 Assessment & Plan Assessment & Plan (1) Chronic kidney disease: Code(s): N18.9 - Chronic kidney disease, unspecified Category: Medical Plan: CKD 3 most likely due to hypertensive diabetic kidney disease Non diabetic causes seem unlikely based on recent work up Non nephrotic range proteinuria due to Diabetic kidney disease CT scan showed cortical thinning. NO hydro in the past In the meantime, Avoid nephrotoxins Agree with ACEi and SGLT-2 inhibitors GLycosuria due to SGLT-2 inhibitors (2) BPH (benign prostatic hyperplasia): Code(s): N40.0 - Benign prostatic hyperplasia without lower urinary tract symptoms Category: Medical Plan: Follow with Urology (3) Hypercalcemia: Code(s): E83.52 - Hypercalcemia Category: Medical Plan: Repeat Ca is normal SPEP - no MCGP Coding Level of Care Code Est Pt Level 4 (28110) Diagnoses Chronic kidney disease N18.9 BPH (benign prostatic hyperplasia) N40.0 Hypercalcemia E83.52
== END 2024-02-18 13:33 | disposition home or self-care (01) ==
PROVIDERS: PCP Internal Medicine; Visit Provider Internal Medicine Hypertension Specialist
DX: E11.22 Type 2 diabetes mellitus with diabetic chronic kidney disease (principal); N18.30 Chronic kidney disease, stage 3 unspecified; N40.0 Benign prostatic hyperplasia without lower urinary tract symptoms; E83.52 Hypercalcemia
CPT/HCPCS: 99214

== ENCOUNTER → 2024-02-18 13:18 | Outpatient (BNVA) | payer MEDICARE, MEDICAID, SELFPAY | PROVIDERS: PCP Internal Medicine; Visit Provider Internal Medicine Hypertension Specialist | DX: E11.22 Type 2 diabetes mellitus with diabetic chronic kidney disease (principal); E11.21 Type 2 diabetes mellitus with diabetic nephropathy; E11.65 Type 2 diabetes mellitus with hyperglycemia; I12.9 Hypertensive chronic kidney disease with stage 1 through stage 4 chronic kidney disease, or unspecified chronic kidney disease; N18.9 Chronic kidney disease, unspecified; N40.0 Benign prostatic hyperplasia without lower urinary tract symptoms; E83.52 Hypercalcemia | CPT/HCPCS: 99212 ==

== ENCOUNTER 2024-07-31 15:22 | Outpatient (AMB) | payer MEDICARE, MEDICAID, SELFPAY ==
[2024-07-31 15:40] VITALS: BP 130/66; PULSE 69; TEMP 36.2; O2SAT 98; BMI 26.1
--- NOTE | 2024-07-31 15:40 | A.OFFPC_ITS ---
Vital Signs 07/31/24 15:40 Height 5 ft 6 in Weight 161 lb 8 oz BMI 26.1 BP 130/66 Blood Pressure Location Lt brachial Position Sitting Pulse 69 Pulse Source Pulse Oximeter Temp 97.1 F Temp Source Temporal Artery Scan Pulse Oximetry (%) 98 Oxygen Delivery Method Room Air Intake Visit Reasons: DM,cad Sand Caster Apprentice Required: No Extrusion Die Coordinator: Present Accompanied by: Daughter Allergies finasteride Adverse Reaction (Intermediate, Verified 07/31/24 15:40) rash lisinopril Adverse Reaction (Intermediate, Verified 07/31/24 15:40) hyperkalemia Shellfish Allergy (Mild, Uncoded 07/31/24 15:40) NOT APPLICABLE Medication List - Last Reconciled 07/31/24 by Allen Sevilla MD adhesive tape As directed albuterol sulfate 90 mcg/actuation (Ventolin HFA) 2 puffs inhalation Q6H PRN alfuzosin ER 10 mg PO DAILY amlodipine 10 mg PO DAILY [ANTIBACTERIAL GAUZE PAD 4x4 inches As directed] cholecalciferol (vitamin D3) 25 mcg PO DAILY clopidogrel 75 mg PO DAILY cyanocobalamin (vitamin B-12) 1,000 mcg PO DAILY [disposable chux As directed] disposable gloves large gloves elastic bandage (Coban Self-Adherent Wrap) As directed empagliflozin (Jardiance) 10 mg PO DAILY gabapentin 100 mg PO BEDTIME glimepiride 2 mg PO QAM hydrocortisone 2.5% 1 appl topical BID PRN [Large Gauze Pads CURAD 4 x 4 in As directed] linagliptin (Tradjenta) 5 mg PO DAILY metoprolol tartrate 50 mg PO BID 90 days mometasone-formoterol 200-5 mcg/actuation (Dulera) 2 puffs inhalation BID non-adherent bandage (Curity Abdominal Pad) As directed rosuvastatin 20 mg PO DAILY tramadol 50 mg PO Q8H PRN 90 days Tobacco use date assessed: 07/31/24 Fall risk assessment: 1 Fall in past year (07/01/24) Last assessed Fall Risk: 07/31/24 Dental Screening Dental Screen Date: 07/31/24 Did you have a dental visit in the last 12 months?: No Did you have a dental problem in the last 6 months where you did not have access to dental care?: No Was dental information given to patient?: No [facility] Medical History Atherosclerotic cardiovascular disease Ischemic cardiomyopathy Essential hypertension Colon cancer Type 2 diabetes mellitus with hyperglycemia Hypercholesterolemia Diabetic nephropathy Vitamin D deficiency Peripheral vascular disease Coronary artery disease Generalized osteoarthritis Asthma Surgical History History of vascular surgery S/P sclerotherapy of varicose veins Family History Father Hypertension Mother CVD (cardiovascular disease) Hypertension Maternal Uncle Prostate cancer Social History Housing: House Alcohol intake: former Patient Tobacco Use Status: Never used Tobacco Tobacco use type: Cigarette e-Cigarette/Vaping Use: Never Used Second Hand Smoke Exposure: No Advance Directives Date on File: 02/03/21 service: Yes Current occupational status: retired and disabled Current occupational exposures/hazards: No Cognitive needs: Yes Hearing needs: No Vision needs: No Questionnaire PHQ-9 Over the last 2 weeks, how often have you been bothered by any of the following problems? 1. Little interest or pleasure in doing things: several days 2. Feeling down, depressed, or hopeless: several days 3. Trouble falling or staying asleep, or sleeping too much: several days 4. Feeling tired or having little energy: several days 5. Poor appetite or overeating: several days 6. Feeling bad about yourself - or that you are a failure or have let yourself or your family down: several days 7. Trouble concentrating on things, such as reading the newspaper or watching television: several days 8. Moving or speaking so slowly that other people could have noticed. Or the opposite - being so fidgety or restless that you have been moving around a lot more than usual: several days 9. Thoughts that you would be better off or of hurting yourself in some way: not at all Total score: 8 Source: Developed by Drs. Leonel King, Sherry Rosales, Herman Rodriguez and colleagues, with an educational sandi from [employer]. Thrive Questionnaire Date Thrive assessed: 07/24/24 I am a: Patient What is your living situation today?: I have a steady place to live Within the past 12 months, did the food you bought not last and you didn't have the money to get more?: Never true Within the past 12 months, did you worry whether your food would run out before you got money to buy more?: Never true Do you have trouble paying for medicines?: No Do you have trouble getting transportation to medical appointments?: No Do you have trouble paying your heating and electricity bill?: No Do you have trouble taking care of your child, family member or friend?: No Do you have trouble with day-to-day activities such as bathing, preparing meals, shopping, managing finances, etc.?: No Are you currently unemployed and looking for a job?: No Are you interested in more education?: No Please select the resources that you would like help with: None Currently or been in a relationship where the following occur: No concerns reported THRIVE Score: 0 AUDIT C Alcohol Use Questionnaire (AUDIT-C) 1. How often do you have a drink containing alcohol?: Never 3. How often do you have six or more drinks on one occasion?: Never Total Score: 0 BALJIT-7 AMB Questionnaire BALJIT-7 Date BALJIT - 7 assessed: 07/31/24 Feeling nervous, anxious, or on edge: 1 = Several days Not being able to stop or control worryin = Several days Worrying too much about different things: 1 = Several days Trouble relaxin = Several days Being so restless that it is hard to sit still: 1 = Several days Becoming easily annoyed or irritable: 1 = Several days Feeling afraid as if something awful might happen: 1 = Several days Total BALJIT-7 score (0-4 normal; 5-9 mild; 10-14 moderate; 15-21 severe): 7 Source: Developed by Drs. Leonel King, Sherry Rosales, Herman Rodriguez and colleagues, with an educational sandi from [employer]. Physical exam (Primary Care) Vital Signs: Last Vital Signs Temp 97.1 F 07/31/24 15:40 Pulse 69 07/31/24 15:40 BP 130/66 07/31/24 15:40 Pulse Ox 98 07/31/24 15:40 Oxygen Delivery Method Room Air 07/31/24 15:40 BMI result Body Mass Index 26.1 Tobacco/Smoking Status: Tobacco use Status Tobacco use date assessed 07/31/24 07/31/24 15:41 Patient Tobacco Use Status Never used Tobacco 07/31/24 15:41 Tobacco use type Cigarette 07/31/24 15:41 e-Cigarette/Vaping Use Never Used 07/31/24 15:41 PHQ-9: PHQ-9 Score PHQ-9: Total score 8 07/31/24 16:57 Thrive Assessment: Date of Thrive Assessment Date Thrive assessed 07/24/24 07/31/24 15:41 Currently or been in a relationship where the following occur: No concerns reported Const General: alert; No acute distress Eyes Conjunctivae: conjunctivae normal Resp Auscultation: clear to auscultation bilaterally Cardio Rate: regular rate Rhythm: regular rhythm GI Inspection: Yes normal to inspection Extrem General: Yes normal to inspection and No edema Results AMB Hemoglobin A1c AMB Hemoglobin A1c 6.6 % Last Edit by KIM Fontaine on 07/31/24 16:44 Results Reviewed Results Reviewed: Laboratory Last Values Hgb A1c (Clinic) 6.6 % (4.0-6.0) H 07/31/24 16:44 Coding Level of Care Code Est Pt Level 4 (56477) Complex EM visit Add On G2211 Diagnoses Coronary artery disease involving [place] coronary artery of mentasta heart without angina pectoris I25.10 Associated angina: without angina Coronary Disease-Associated Artery/Lesion type: [place] artery [place] vs. transplanted heart: mentasta heart Mild intermittent asthma without complication J45.20 Asthma complication type: uncomplicated Asthma persistence: intermittent Asthma severity: mild Hypercholesterolemia E78.00 Type 2 diabetes mellitus with hyperglycemia, without long-term current use of insulin E11.65 Diabetes mellitus local company intermodal truck driver insulin use: without local company intermodal truck driver use Chronic kidney disease N18.9 Essential hypertension I10 Colon cancer C18.9 Colonoscopy refused Z53.20 BPH (benign prostatic hyperplasia) N40.0 Assessment & Plan Assessment & Plan (1) Coronary artery disease: Comment: Stent placement 2003 SD October 2006 echocardiogram November 2016 EF 40-45% ischemic cardiomyopathy myocardial perfusion January 2017 is ejection fraction 40% Code(s): I25.10 - Atherosclerotic heart disease of [place] coronary artery without angina pectoris Category: Medical Qualifiers: Associated angina: without angina Coronary Disease-Associated Artery/Lesion type: [place] artery [place] vs. transplanted heart: mentasta heart Qualified Code(s): I25.10 - Atherosclerotic heart disease of [place] coronary artery without angina pectoris Plan: Control the cholesterol, weight, blood pressure, diabetes patient on clopidogrel 75 mg once a day (2) Asthma: Code(s): J45.909 - Unspecified asthma, uncomplicated Category: Medical Qualifiers: Asthma complication type: uncomplicated Asthma persistence: intermittent Asthma severity: mild Qualified Code(s): J45.20 - Mild intermittent asthma, uncomplicated Plan: Continue with albuterol inhaler as needed also on Dulera. (3) Hypercholesterolemia: Code(s): E78.00 - Pure hypercholesterolemia, unspecified Category: Medical Plan: Avoid fried foods, chicken skin, eggs, butter margarine, pastries and meat. Be it pork or beef they have a lot of cholesterol LDL goal of less than 70 and triglyceride of less than 150 on rosuvastatin 20 mg once a day (4) Type 2 diabetes mellitus with hyperglycemia: Comment: Dr. Villagomez Code(s): E11.65 - Type 2 diabetes mellitus with hyperglycemia Category: Medical Qualifiers: Diabetes mellitus local company intermodal truck driver insulin use: without local company intermodal truck driver use Qualified Code(s): E11.65 - Type 2 diabetes mellitus with hyperglycemia Plan: Decrease the amount of carbohydrate intake, pasta, bread, rice and potatoes are all sugar and that is aside from all the sweet stuff, remember that fruits are good but they are Sweet also. Hemoglobin A1c goal of less than 7.0 on Farxiga glimepiride 2 mg once a day Tradjenta at 5 mg once a day (5) Chronic kidney disease: Code(s): N18.9 - Chronic kidney disease, unspecified Category: Medical Plan: Keep well hydrated avoid NSAIDs patient is on Farxiga and amlodipine 10 mg once a day (6) Essential hypertension: Code(s): I10 - Essential (primary) hypertension Category: Medical Plan: Continue with blood pressure medication. Decrease salt intake and exercise patient takes metoprolol 50 mg twice a day amlodipine 10 mg once a day (7) Colon cancer: Comment: Usha Piedra chemotherapy August 2010 Code(s): C18.9 - Malignant neoplasm of colon, unspecified Category: Medical Plan: Discussed about colon testing (8) Colonoscopy refused: Code(s): Z53.20 - Procedure and treatment not carried out because of patient's decision for unspecified reasons Category: Medical (9) BPH (benign prostatic hyperplasia): Code(s): N40.0 - Benign prostatic hyperplasia without lower urinary tract symptoms Category: Medical Plan: Continue to follow-up with urology patient on alfuzosin Plan History of Present Illness The patient is a 78-year-old male presenting for follow-up on multiple chronic conditions. His main concerns include an 8-pound weight loss and considerations regarding diabetes and cardiovascular management. He has coronary artery disease, type 2 diabetes mellitus, asthma, hypercholesterolemia, chronic kidney disease stage 3, hypertension, and a history of colon cancer diagnosed in 2002. Recent laboratory studies show anemia with hemoglobin at 13.5 and a mild thrombocytopenia. The patient's A1c level was previously noted at 6.0 but reported at 6.6 in recent assessments. LDL cholesterol is at 63, aligning with the below 70 goal despite his hypercholesterolemia. He manages his diabetes with medications including Farxiga, glimepiride, and Tradjenta, and is on metoprolol, amlodipine, and an MERLINE inhibitor for hypertension. He has discontinued Farxiga and switched to Jardiance due to coverage issues. The patient?s renal function is stable at creatinine 1.69. The patient uses Dulera and Albuterol for asthma management as needed, and is on Rosuvastatin for cholesterol management. Patient declined repeat colonoscopy despite having a colon cancer history due to concerns about scheduling. Health Maintenance - Declined colonoscopy for colon cancer screening due to logistical concerns - Continues with medication management for hypertension, cholesterol, diabetes, and asthma - Vaccinations: Previous shingles vaccination documented but not verified during visit Social History - Exercises regularly by walking around the house, including stair activities - Reports leg weakness impacting mobility, especially when rising from a seated position Review of Systems - Cardiovascular: Denies chest pain or shortness of breath - Neurologic: Reports leg weakness - Endocrine: Denies new onset of symptoms - Hematology: Reports anemia and thrombocytopenia based on blood work - Respiratory: Denies new exacerbations of asthma Physical Exam Results - Labs: Hemoglobin 13.5, Mild thrombocytopenia, Creatinine 1.69, A1c 6.6, LDL 63, TSH 4.78 - Previous imaging tests: Echocardiogram as incomplete; Ultrasound declined Plan I have adjusted the patient's medication management for diabetes due to coverage issues, switching from Farxiga to Jardiance while maintaining glimepiride and Tradjenta. The patient's LDL is well-controlled with rosuvastatin, and he will continue his current regimen for hypercholesterolemia. Blood pressure management with metoprolol and amlodipine, along with an MERLINE inhibitor, will continue. Monitoring of anemia and thrombocytopenia will be essential, and the patient is advised to adhere to healthy lifestyle practices to aid in managing his chronic conditions. Despite declining a colonoscopy, the patient has been reminded of its importance in the context of his history of colon cancer. Patient was informed and verbally consented to the use of an ambient scribe for clinic note documentation during this visit. Discussion Notes I discussed managing the patient's diabetes with a switch from Farxiga to Jardiance due to prescription coverage difficulties. Benefits of maintaining his current control with an A1c goal of less than 7.0 were emphasized. The importance of continuing rosuvastatin, metoprolol, amlodipine, and Dulera was addressed. I explained why continued blood pressure and cholesterol management can mitigate complications associated with his multiple comorbidities. During our discussion, the patient was informed about his declined colonoscopy and its implications, especially given his history of colon cancer, and he expressed concerns about scheduling complications. We reviewed the need for routine evaluations, highlighting prior laboratory assessments and future monitoring strategies. Patient Instructions - Take Jardiance instead of Farxiga as prescribed. - Continue taking your other prescribed medications (glimepiride, Tradjenta, etc.) as directed. - Keep track of your blood sugar levels as instructed. - Maintain a low-fat, heart-healthy diet and exercise regularly. - Monitor for signs of low blood sugar and seek help if needed. - Continue monitoring your blood pressure. - Schedule routine follow-ups for blood work and medical evaluations. - If you notice increased leg weakness or any concerning symptoms, contact the office. - Consider speaking with insurance about alternative coverage options. - Maintain use of asthma medications as prescribed. - Remember the importance of regular health screenings and vaccinations. - Keep hydrated and avoid NSAIDs. Orders: Orders AMB Hemoglobin A1c Today E11.65 - Type 2 diabetes mellitus with hyperglycemia Thyroid Stimulating Hormone 4 Weeks I25.5 - Ischemic cardiomyopathy Free T4 (Free Thyroxine) 4 Weeks I25.5 - Ischemic cardiomyopathy Hemoglobin A1c 4 Weeks I25.5 - Ischemic cardiomyopathy Comprehensive Met. Panel 4 Weeks I25.5 - Ischemic cardiomyopathy Medications: New empagliflozin (Jardiance) 10 mg PO DAILY 90 tabs 3RF E11.65 - Type 2 diabetes mellitus with hyperglycemia Refilled metoprolol tartrate 50 mg PO BID 180 tabs 3RF 90 days E11.65 - Type 2 diabetes mellitus with hyperglycemia glimepiride 2 mg PO QAM 90 tabs 2RF E11.65 - Type 2 diabetes mellitus with hyperglycemia tramadol 50 mg PO Q8H PRN 270 tabs 1RF pain 90 days E11.65 - Type 2 diabetes mellitus with hyperglycemia Discontinued dapagliflozin propanediol ([facility]) Discontinued Reason: Insurance Denied 5 mg PO DAILY 30 tabs 3RF E11.65 - Type 2 diabetes mellitus with hyperglycemia
== END 2024-07-31 17:20 | disposition home or self-care (01) ==
LOC: HO.HMCH 15:23
PROVIDERS: PCP Internal Medicine; Visit Provider Internal Medicine
DX: I12.9 Hypertensive chronic kidney disease with stage 1 through stage 4 chronic kidney disease, or unspecified chronic kidney disease (principal); E11.65 Type 2 diabetes mellitus with hyperglycemia; C18.9 Malignant neoplasm of colon, unspecified; N18.9 Chronic kidney disease, unspecified; I25.10 Atherosclerotic heart disease of native coronary artery without angina pectoris; J45.20 Mild intermittent asthma, uncomplicated; E78.00 Pure hypercholesterolemia, unspecified; Z53.20 Procedure and treatment not carried out because of patient's decision for unspecified reasons; N40.0 Benign prostatic hyperplasia without lower urinary tract symptoms

== ENCOUNTER → 2024-07-31 15:22 | Outpatient (BNVA) | payer MEDICARE, MEDICAID, SELFPAY | PROVIDERS: PCP Internal Medicine; Visit Provider Internal Medicine | DX: I25.10 Atherosclerotic heart disease of native coronary artery without angina pectoris (principal); J45.20 Mild intermittent asthma, uncomplicated; E78.00 Pure hypercholesterolemia, unspecified; E11.65 Type 2 diabetes mellitus with hyperglycemia; I12.9 Hypertensive chronic kidney disease with stage 1 through stage 4 chronic kidney disease, or unspecified chronic kidney disease; E11.22 Type 2 diabetes mellitus with diabetic chronic kidney disease; N18.9 Chronic kidney disease, unspecified; C18.9 Malignant neoplasm of colon, unspecified; N40.0 Benign prostatic hyperplasia without lower urinary tract symptoms | CPT/HCPCS: 83036; 99212 ==

== ENCOUNTER → 2024-08-07 23:59 | Outpatient (BNV) | payer MEDICARE, MEDICAID, SELFPAY | PROVIDERS: PCP Internal Medicine; Visit Provider Internal Medicine | DX: G90.09 Other idiopathic peripheral autonomic neuropathy (principal); E11.65 Type 2 diabetes mellitus with hyperglycemia; I87.2 Venous insufficiency (chronic) (peripheral); J45.998 Other asthma | CPT/HCPCS: G0180 ==

== ENCOUNTER 2024-09-08 08:09 | Outpatient (REF) | payer MEDICARE, MEDICAID, SELFPAY ==
--- OUTSIDE RECORDS SUMMARY | 2024-09-08 08:15 | XMS_ITS | Patient Health Record ---
Author Organization [facility] Address [address] [place] [id number] Care Team Providers Care Fisher Line Name Role Phone Leonel Becker Domenica [phone] Reason For Referral No Information Plan Of Treatment No Information
[2024-09-08 10:25] LABS: Appearance Urine Clear; Color Urine Yellow; Glucose Urine UA 500 mg/dL (Negative); Leukocyte Esterase Urine Negative (Negative); Nitrite Urine Negative (Negative); PH 5.5 (5.0-9.0); UMIC TRIGGER UA YES; Urine Blood Negative (Negative); Urine Ketones Negative (Negative); Urine Protein 300 (3+) mg/dL (Neg-Trace)
[2024-09-08 10:27] LABS: Bacteria Urine None Seen (None Seen); RBC Urine 0-2 /HPF (0-2); Squamous Epithelial Cell Urine 0-2 /HPF (0-2); WBC Urine 0-5 /HPF (0-5)
[2024-09-08 10:43] LABS: Estimated Average Glucose 134 mg/dL; Hemoglobin A1C 142.7279 umol/L; Hemoglobin A1c % 6.3 % (<6.0)
[2024-09-08 11:03] LABS: Alanine Aminotransferase 17 U/L (0-40); Albumin Level 3.9 g/dL (3.5-5.0); Alkaline Phosphatase 84 U/L (39-117); Anion Gap 13 (12-20); Aspartate Amino Transferase 33 U/L (5-37); Bilirubin Total 0.8 mg/dL (0.0-1.0); Blood Urea Nitrogen 34 mg/dL (9-16); Calcium 9.2 mg/dL (8.4-10.2); Carbon Dioxide 23 mmol/L (22-29); Chloride 109 mmol/L (96-108); Estimated Glomerular Filt Rate 34; Glucose Random 90 mg/dL (60-115); Potassium 4.7 mmol/L (3.3-5.1); Sodium 140 mmol/L (135-145); Total Protein 7.2 g/dL (6.5-8.0)
[2024-09-08 11:06] LABS: Thyroid Stimulating Hormone 6.03 uIU/mL (0.32-4.0)
== END 2024-09-08 08:10 | disposition home or self-care (01) ==
LOC: HO.10HDL 08:09
PROVIDERS: Internal Medicine Hypertension Specialist; Visit Provider Internal Medicine
DX: I25.5 Ischemic cardiomyopathy (principal); N18.9 Chronic kidney disease, unspecified; E83.52 Hypercalcemia; N40.0 Benign prostatic hyperplasia without lower urinary tract symptoms; Z13.1 Encounter for screening for diabetes mellitus
CPT/HCPCS: 36415; 80053; 81001; 83036; 84439; 84443

== ENCOUNTER 2024-09-08 08:23 | Emergency (ER) | payer MEDICARE, MEDICAID, SELFPAY ==
--- NOTE | ~2024-09-08 | XR_ITS ---
EXAMINATION: XR CHEST 2 VIEWS HISTORY: CACERES, pitting edema COMPARISON: Comparison is made with the prior examination dated 01/04/2023. FINDINGS: PA and lateral views of the chest are submitted. Again seen is elevation of the right hemidiaphragm. There is chronic scarring in the right lower lobe and mild right-sided pleural thickening at the lung base. The left lung is clear. There is no pleural effusion, pneumothorax, or pulmonary vascular congestion. The heart is normal in size. There is degenerative disc disease of the spine. XR/XR chest 2V IMPRESSION: No acute cardiopulmonary abnormality. Electronically signed by: Leonel Mcgowan MD 09/08/2024 09:34 AM EDT
--- NOTE | ~2024-09-08 | US_ITS ---
EXAMINATION: US TRIPLEX LOWER EXTREMITY, BILATERAL CLINICAL INFORMATION: Bilateral lower extremity edema. History of DVT. COMPARISON: None available. TECHNIQUE: Color-flow triplex imaging with spectral analysis and compression Doppler were performed on the bilateral lower extremities. FINDINGS: Respiratory variation, normal compression and augmented flow are noted throughout the bilateral lower extremities. The visualized common femoral vein, superficial femoral vein, profunda femoral vein, popliteal vein and midcalf peroneal and posterior tibial venous segments show no evidence of deep venous thrombosis bilaterally. There is no Keen's cyst. There is bilateral calf edema. US/US venous duplex LE BI IMPRESSION: No evidence of deep venous thrombosis involving the bilateral lower extremities. Electronically signed by: Kyeshawn Ware MD 09/08/2024 11:32 AM EDT
[2024-09-08 08:27] VITALS: BP 144/54; PULSE 80; RESP 18; TEMP 37.1; O2SAT 95; BMI 25.3
--- NOTE | 2024-09-08 08:40 | ED_ITS ---
HPI - General Adult General Chief complaint: Extremity Injury, Lower Stated complaint: Edema in Both Legs Time Seen by Provider: 09/08/24 08:26 Source: patient and family (Daughter) Mode of arrival: ambulatory Limitations: no limitations History of Present Illness ED Provider: INGRID JIMENEZ PA-C HPI narrative: 78-year-old male with past medical history significant for CAD, ischemic cardiomyopathy, HTN, PVD, type 2 diabetes, diabetic neuropathy, asthma, colon cancer (s/p chemo 2002) presents to the ED today with his daughter for evaluation of bilateral lower extremity swelling x1 week. Daughter states that swelling initially extended from mid thigh down to feet. Now primarily to lower legs/feet. Patient reports 5/10 pain in legs at rest, increased on ambulation. Admits to increased effort and ambulation due to heaviness of legs. Endorses intermittent dyspnea on exertion. Denies any chest pain. Admits to history of DVT in right lower extremity, anticoagulated on clopidogrel. Related Data Home Medications ?Medication ?Instructions ?Recorded ?Confirmed cholecalciferol (vitamin D3) 25 25 mcg PO DAILY 07/31/24 mcg (1,000 unit) capsule cyanocobalamin (vitamin B-12) 1,000 mcg PO DAILY 06/2107/31/24 1,000 mcg capsule Previous Rx's ?Medication ?Instructions ?Recorded hydrocortisone 2.5 % topical cream 1 appl topical BID PRN skin 02/13/22 irritation #30 grams albuterol sulfate 90 mcg/actuation 2 puff inhalation Q 6H PRN 05/11/22 aerosol inhaler (Ventolin HFA) bronchospasm #8.5 grams Large Gauze Pads CURAD 4 x 4 in #150 ea 03/28/23 adhesive tape 1 1/2 X 10 yard #4 ea 03/28/23 disposable chux #60 ea 03/28/23 disposable gloves #1,000 ea 03/28/23 elastic bandage 4 X 5 yard (Coban #18 ea 03/28/23 Self-Adherent Wrap) non-adherent bandage 5 X 9 #880 ea 03/28/23 (Curity Abdominal Pad) ANTIBACTERIAL GAUZE PAD 4x4 inches #120 ea 06/25/23 mometasone-formoterol HFA 200 2 puff inhalation BID #1 3 grams 07/03/23 mcg-5 mcg/actuation aerosol inhaler (Dulera) amlodipine 10 mg tablet 10 mg PO DAILY #90 tabs 11/09 rosuvastatin 20 mg tablet 20 mg PO DAILY #90 tabs 10/10 clopidogrel 75 mg tablet 75 mg PO DAILY #90 tabs 08/10 linagliptin 5 mg tablet (Tradjenta) 5 mg PO DAILY #90 tabs 06/21/24 gabapentin 100 mg capsule 100 mg PO BEDTIME #90 caps 0 06/22/24 empagliflozin 10 mg tablet 10 mg PO DAILY #90 tabs (Jardiance) glimepiride 2 mg tablet 2 mg PO QAM #90 tabs 5 metoprolol tartrate 50 mg tablet 50 mg PO BID 90 days #180 tabs 07/31/24 tramadol 50 mg tablet 50 mg PO Q8H PRN pain 90 day s #270 07/31/24 tabs alfuzosin 10 mg tablet,extended 10 mg PO DAILY #30 tab s 08/25/24 release 24 hr Allergies Allergy/AdvReac Type Severity Reaction Status Date / Time finasteride AdvReac Intermediate rash Verified 09/08/24 08:28 lisinopril AdvReac Intermediate hyperkalemi Verified 09/08/24 08:28 a Shellfish Allergy Mild NOT Uncoded 07/31/24 15:40 APPLICABLE Review of Systems 2 Review of Systems: Constitutional: No fever, chills, fatigue, night sweats, weight changes ENT/Mouth: No ear pain, hearing loss, nasal congestion, sinus pain, rhinorrhea, sore throat Eyes: No eye pain, swelling, redness, vision changes, discharge Cardio: No chest pain, palpitations, +CACERES, No orthopnea, +peripheral edema Pulm: No SOB, cough, sputum, wheezing, dyspnea, hemoptysis GI: No nausea, vomiting, hematemesis, abdominal pain, diarrhea, constipation, hematochezia, melena : No irregular bleeding, dysuria, frequency, urgency, hesitancy, hematuria, flank pain, urinary flow changes, urinary incontinence or retention MSK: No back pain, neck pain, joint pain, myalgias Skin: No lesions, rashes Neuro: No weakness, numbness, paresthesias, LOC, dizziness, headache Psych: No anxiety/panic, depression, SI/HI, AH/VH All other systems reviewed and are negative. [facility] Past Medical History Attestation statement: The following information was validated with the patient. Source: old records reviewed, obtained from family (Daughter) and nursing notes reviewed Medical History Atherosclerotic cardiovascular disease Ischemic cardiomyopathy Essential hypertension Colon cancer Type 2 diabetes mellitus with hyperglycemia Hypercholesterolemia Diabetic nephropathy Vitamin D deficiency Peripheral vascular disease Coronary artery disease Generalized osteoarthritis Asthma Surgical History History of vascular surgery S/P sclerotherapy of varicose veins Family History Family History Father Hypertension Mother CVD (cardiovascular disease) Hypertension Maternal Uncle Prostate cancer Social History Social History Housing: House Alcohol intake: former Patient Tobacco Use Status: Never used Tobacco Tobacco use type: Cigarette Smoked in Last 30 Days: No e-Cigarette/Vaping Use: Never Used Second Hand Smoke Exposure: No Use of substances other than those prescribed or required for medical reasons: No Advance Directives: Yes Advance Directives on File: Yes Advance Directives Date on File: 02/03/21 service: Yes Current occupational status: retired and disabled Current occupational exposures/hazards: No Cognitive needs: Yes Hearing needs: No Vision needs: No Physical Exam ED Vital Signs: Vital Signs - 24 hr 09/08/24 08:27 09/08/24 11:56 09/08/24 12:00 Temperature 98.7 F 98.1 F 98.1 F Pulse Rate 80 95 95 Respiratory Rate 18 16 16 Blood Pressure 144/54 H 151/68 H 151/68 H Pulse Oximetry 95 95 95 Oxygen Delivery Method Room Air Room Air Room Air BMI result Body Mass Index 25.3 Hypertensive, vitals otherwise WNL. Not hypoxic or tachycardic General: Well appearing, in no acute distress. Skin: Warm, dry, intact. No rashes or lesions. Head: Normocephalic, atraumatic. EENT: Hearing is intact b/l. Conjunctiva clear. Sclera is anicteric. PERRLA. EOM intact. Moist mucous membranes.? Cardiac: Chest wall symmetric. RRR. no JVD Lungs: Normal respiratory effort without accessory muscle use. CTA bilaterally. No rales, rhonchi, or wheezes.? Abdomen: Soft, non-tender, non-distended. No rebound tenderness or guarding Ext: + see photo below. 3+ pitting edema extending distally from b/l knees to feet. Chronic venous stasis changes to bilateral lower extremities. no overlying cellulitis. No open wounds/ulcers. Neuro: AOx3. Normal speech. Psych: Appropriate mood and affect. Responds appropriately to questions. Course Course Course Narrative: 1157 -- CBC without leukocytosis or left shift. Normocytic anemia, H and H stable when compared to priors. Chemistry without acute electrolyte abnormality requiring intervention. Renal function around baseline stage III CKD. No TRAVON. Liver function at baseline. Troponin WNL. Given timing of symptoms to presentation, repeat for delta not warranted. BNP WNL. CXR without infiltrate or consolidation, no effusion. CHF unlikely. EKG showing normal sinus rhythm, rate of 67 beats per minute, QT 426, QTC 450. Venous duplex bilateral lower extremities without DVT. > medicated with Tylenol. Anxious for discharge home. > discussed workup results with patient and his daughter. Likely dependent edema. Advised compression stockings and leg elevation at home. Advised PCP follow-up. Patient has remained stable throughout ED visit today. Discussed worrisome signs and symptoms and when to return to the ED. All questions answered at this time. Patient and daughter are agreeable with disposition and patient is stable for discharge. Medications Administered Discontinued Medications Generic Name Dose Route Start Last Admin Trade Name Freq PRN Reason Stop Dose Admin Acetaminophen 975 mg 09/08/24 11:49 09/08/24 11:54 Acetaminophen 325 Mg Tablet PO 09/08/24 11:50 975 mg ONCE ONE Administration Medical Decision Making Medical Decision Making [facility] Narrative: 78-year-old male with past medical history significant for CAD, ischemic cardiomyopathy, HTN, PVD, type 2 diabetes, diabetic neuropathy, asthma, colon cancer (s/p chemo 2002) presents to the ED today with his daughter for evaluation of bilateral lower extremity swelling x1 week. Patient is hypertensive, not tachycardic or hypoxic. He is generally well-appearing, sitting comfortably on exam bed. On exam there is no JVD and 3+ pitting edema to bilateral lower extremities. Lungs are clear without adventitious breath sounds. Differential diagnosis includes anemia, electrolyte abnormality, fluid overload, dependent edema, CHF, ACS, arrhythmia, PVD, pleural effusion, dvt Lower suspicion for PE. Plan for labs, EKG, chest x-ray, re-evaluation. Differential Diagnosis Differential Diagnoses: The differential diagnosis associated with the presentation includes As above Admission/Observation Not indicated Lab Data MDM Lab Attestation statement: I reviewed the patient's lab results. As above 09/08/24 09:46 09/08/24 09:46 Labs: Lab Results 09/08/24 Range/Units 09:46 WBC 7.0 (4.8-10.8) X10*3/uL RBC 4.12 L (4.60-5.80) X10*6/uL Hgb 12.1 L (14.0-18.0) g/dl Hct 37.0 L (42.0-52.0) % MCV 89.8 (80.0-98.0) fL MCH 29.4 (27.0-33.0) pg MCHC 32.7 (31.0-36.0) g/dl RDW 14.0 (11.0-16.0) % Plt Count 130 L (160-400) X10*3/uL MPV 11.4 (9.4-12.4) fL Immature Gran % (Auto) 0.3 (0.0-0.4) % Neut % (Auto) 74.2 H (45-73) % Lymph % (Auto) 11.3 L (20-40) % Gosper % (Auto) 10.9 (2-11) % Eos % (Auto) 2.7 (0-4) % Baso % (Auto) 0.6 (0-2) % Lymph # (Auto) 0.8 L (1.2-4.9) X10*3/uL Gosper # (Auto) 0.8 (0.1-1.2) X10*3/uL Eos # (Auto) 0.2 (0.0-0.4) X10*3/uL Baso # (Auto) 0.0 (0.0-0.2) X10*3/uL Abs Immat Gran (auto) 0.02 (0.00-0.03) X10*3/uL Absolute Neuts (auto) 5.2 (2.0-8.3) x10*3/uL Absolute Nucleated RBC 0.000 (0.0-0.012) X10*3/uL Nucleated RBC % (auto) 0.0 (0.0-0.2) /100WBC Sodium 140 (135-145) mmol/L Potassium 4.9 (3.3-5.1) mmol/L Chloride 108 (96-108) mmol/L Carbon Dioxide 23 (22-29) mmol/L Anion Gap 14 (12-20) BUN 33 H (9-16) mg/dL Creatinine 1.90 H (0.5-1.4) mg/dL Estim Creat Clear Calc 32.0 Estimated GFR 35 Random Glucose 83 (60-115) mg/dL Calcium 9.2 (8.4-10.2) mg/dL Magnesium 2.2 (1.6-2.6) mg/dL Total Bilirubin 0.8 (0.0-1.0) mg/dL AST 35 (5-37) U/L ALT 16 (0-40) U/L Alkaline Phosphatase 84 (39-117) U/L Troponin I High Sens 11.8 (<3.5-35.0) ng/L B-Natriuretic Peptide 56 (<100) pg/mL Total Protein 7.0 (6.5-8.0) g/dL Albumin 3.8 (3.5-5.0) g/dL Influenza Type A (PCR) NEGATIVE (Negative) Influenza Type B (PCR) NEGATIVE (Negative) RSV RNA Qual (PCR) NEGATIVE (Negative) SARS-CoV-2 RNA (RT-PCR) NEGATIVE (Negative) Independent Interpretation I performed an independent interpretation of an: EKG, Plain X-Ray and Ultrasound Interpretation: EKG showing normal sinus rhythm, rate 67 beats per minute, QT 426, QTC 450, right bundle-branch block evident on prior EKGs Chest x-ray without infiltrate or consolidation, no effusion, no edema Venous duplex bilateral lower extremities without VTE Radiology Impression Discussion of test interpretation with radiology: I have reviewed the radiologist's reading. Radiologist Impression: Date of Service: 09/08/24 Procedure(s): US venous duplex LE BI Accession Number(s): [id number] cc: Allen Sevilla MD; Ingrid Jimenez~ EXAMINATION: US TRIPLEX LOWER EXTREMITY, BILATERAL CLINICAL INFORMATION: Bilateral lower extremity edema. History of DVT. COMPARISON: None available. TECHNIQUE: Color-flow triplex imaging with spectral analysis and compression Doppler were performed on the bilateral lower extremities. FINDINGS: Respiratory variation, normal compression and augmented flow are noted throughout the bilateral lower extremities. The visualized common femoral vein, superficial femoral vein, profunda femoral vein, popliteal vein and midcalf peroneal and posterior tibial venous segments show no evidence of deep venous thrombosis bilaterally. There is no Keen's cyst. There is bilateral calf edema. US/US venous duplex LE BI IMPRESSION: No evidence of deep venous thrombosis involving the bilateral lower extremities. Electronically signed by: Keyshawn Ware MD 09/08/2024 11:32 AM EDT Procedure(s): XR chest 2V Accession Number(s): [id number] cc: Allen Sevilla MD; Ingrid Jimenez~ EXAMINATION: XR CHEST 2 VIEWS HISTORY: CACERES, pitting edema COMPARISON: Comparison is made with the prior examination dated 01/04/2023. FINDINGS: PA and lateral views of the chest are submitted. Again seen is elevation of the right hemidiaphragm. There is chronic scarring in the right lower lobe and mild right-sided pleural thickening at the lung base. The left lung is clear. There is no pleural effusion, pneumothorax, or pulmonary vascular congestion. The heart is normal in size. There is degenerative disc disease of the spine. XR/XR chest 2V IMPRESSION: No acute cardiopulmonary abnormality. Electronically signed by: Leonel Mcgowan MD 09/08/2024 09:34 AM EDT Independent Historian Clinical information obtained from an independent historian. History obtained from or confirmed by: Other (Daughter) External Record Review External record reviewed: Inpatient record Chronic Conditions Patient?s care impacted by: Hypertension and Other (CAD, PVD) Social Determinants Patient?s care significantly limited by Social Determinants of Health including: Other Social Determinant of Health Critical Care Time Critical Care Time Critical Care Time: No Discharge Plan Discharge Clinical Impression: Dependent edema Patient Disposition: Home, Self-Care Instructions: Leg Edema (ED) Additional Instructions: Your work up today is reassuring. Your blood work is at your baseline. Your chest x-ray does not demonstrate fluid in your lungs. The ultrasound of your legs does not show any deep venous clot. You have dependent edema. See home care instructions. I recommend wearing compression stockings and elevating your legs whenever possible. I recommend a diet low in sodium (less than 2 grams per day). Monitor your weight daily. Follow up with your PCP this week. Return to the ED with new or worsening symptoms. In the case of an emergency call 911. Prescriptions: No Action albuterol sulfate [Ventolin HFA] 90 mcg/actuation HFA aerosol inhaler 2 puff inhalation Q6H PRN (Reason: bronchospasm) Qty: 8.5 0RF (DME) Curity Abdominal Pad 5 X 9 bandage See Rx Instructions .Route Qty: 880 0RF Rx Instructions: As directed (DME) Large Gauze Pads CURAD 4 x 4 in See Rx Instructions .Route .MEDSUPPLY Qty: 150 11RF Rx Instructions: As directed (DME) Coban Self-Adherent Wrap 4 X 5 -yard bandage See Rx Instructions .Route Qty: 18 4RF Rx Instructions: As directed (DME) disposable gloves Misc See Rx Instructions .Route Qty: 1000 0RF Rx Instructions: large gloves (DME) disposable chux See Rx Instructions .Route .MEDSUPPLY Qty: 60 4RF Rx Instructions: As directed (DME) adhesive tape 1 1/2 X 10 -yard tape See Rx Instructions .Route Qty: 4 4RF Rx Instructions: As directed Dulera 200-5 mcg/actuation HFA aerosol inhaler 2 puff inhalation BID Qty: 13 12RF amlodipine 10 mg tablet 10 mg PO DAILY Qty: 90 3RF rosuvastatin 20 mg tablet 20 mg PO DAILY Qty: 90 2RF clopidogrel 75 mg tablet 75 mg PO DAILY Qty: 90 1RF Tradjenta 5 mg tablet 5 mg PO DAILY Qty: 90 2RF gabapentin 100 mg capsule 100 mg PO BEDTIME Qty: 90 3RF alfuzosin 10 mg tablet extended release 24 hr 10 mg PO DAILY Qty: 30 5RF Rx Instructions: administer after the same meal each day cyanocobalamin (vitamin B-12) 1,000 mcg capsule 1,000 mcg PO DAILY cholecalciferol (vitamin D3) 25 mcg (1,000 unit) capsule 25 mcg PO DAILY hydrocortisone 2.5 % cream 1 appl topical BID PRN (Reason: skin irritation) Qty: 30 0RF (DME) ANTIBACTERIAL GAUZE PAD 4x4 inches See Rx Instructions .Route .MEDSUPPLY Qty: 120 12RF Rx Instructions: As directed Jardiance 10 mg tablet 10 mg PO DAILY Qty: 90 3RF metoprolol tartrate 50 mg tablet 50 mg PO BID 90 Days Qty: 180 3RF glimepiride 2 mg tablet 2 mg PO QAM Qty: 90 2RF tramadol 50 mg tablet 50 mg PO Q8H PRN (Reason: pain) 90 Days Qty: 270 1RF Referrals: Po,Allen Naranjo MD [Primary Care Provider, Internal Medicine] Interventions: ED Discharge Assessment Last Done: 09/08/24 12:00 Discharge Date/Time: 09/08/24 12:01 Print Language: Bulgarian
--- NOTE | 2024-09-08 08:48 | PC.NURSE ---
patient a&ox3, pt c/o ble swelling- pt has 3+ pitting edema, c/o 7/10 pain to lower extremities- no injury per patient. quality assurance monitor body applied. lungs clear throughout, rr equal/non labored- daughter stated he does have asthma exacerbations at times, pt awaiting to be seen by provider
--- NOTE | 2024-09-08 08:54 | ECG_ITS ---
Test Reason : SWELLING LEGS Blood Pressure : */* mmHG Vent. Rate : 67 BPM Atrial Rate : 67 BPM P-R Int : 140 ms QRS Dur : 146 ms QT Int : 426 ms P-R-T Axes : 40 -34 -10 degrees QTcB Int : 450 ms Normal sinus rhythm Left axis deviation Right bundle branch block Septal infarct (cited on or before 13-Mar-2008) Abnormal ECG When compared with ECG of 31-Aug-2020 19:38, Premature supraventricular complexes are no longer Present QRS axis Shifted left Referred By: Ingrid Jimenez Electronically Signed By: THERON LOVELACE
--- NOTE | 2024-09-08 09:40 | PC.NURSE ---
ekg performed, labs drawn
[2024-09-08 09:51] LABS: MANUAL DIFF FLAG NO
[2024-09-08 09:55] LABS: Basophils Percent Auto 0.6 % (0-2); Eosinophils Absolute Auto 0.2 X10*3/uL (0.0-0.4); Eosinophils Percent Auto 2.7 % (0-4); Hemoglobin 12.1 g/dl (14.0-18.0); Imm Gran Abs Auto 0.02 X10*3/uL (0.00-0.03); Imm Gran Pct Auto 0.3 % (0.0-0.4); Lymphocytes Absolute Auto 0.8 X10*3/uL (1.2-4.9); Lymphocytes Percent Auto 11.3 % (20-40); Mean Corpuscular HGB Conc 32.7 g/dl (31.0-36.0); Mean Corpuscular Hemoglobin 29.4 pg (27.0-33.0); Mean Corpuscular Volume 89.8 fL (80.0-98.0); Mean Platelet Volume 11.4 fL (9.4-12.4); Monocytes Absolute Auto 0.8 X10*3/uL (0.1-1.2); Monocytes Percent Auto 10.9 % (2-11); Neutrophils Absolute Auto 5.2 x10*3/uL (2.0-8.3); Neutrophils Percent Auto 74.2 % (45-73); Platelet Count 130 X10*3/uL (160-400); Red Blood Count 4.12 X10*6/uL (4.60-5.80)
[2024-09-08 10:07] LABS: Alanine Aminotransferase 16 U/L (0-40); Albumin Level 3.8 g/dL (3.5-5.0); Alkaline Phosphatase 84 U/L (39-117); Anion Gap 14 (12-20); Aspartate Amino Transferase 35 U/L (5-37); Bilirubin Total 0.8 mg/dL (0.0-1.0); Blood Urea Nitrogen 33 mg/dL (9-16); Calcium 9.2 mg/dL (8.4-10.2); Carbon Dioxide 23 mmol/L (22-29); Chloride 108 mmol/L (96-108); Estimated Glomerular Filt Rate 35; Glucose Random 83 mg/dL (60-115); Magnesium 2.2 mg/dL (1.6-2.6); Potassium 4.9 mmol/L (3.3-5.1); Sodium 140 mmol/L (135-145)
[2024-09-08 10:12] LABS: B Type Natriuretic Peptide 56 pg/mL (<100)
[2024-09-08 10:16] LABS: Troponin-I High Sensitivity 11.8 ng/L (<3.5-35.0)
[2024-09-08 10:33] LABS: Influenza A PCR NEGATIVE (Negative); Influenza B PCR NEGATIVE (Negative); Resp Syncy Virus RNA Qual PCR NEGATIVE (Negative); SARS COV2 PCR INHOUSE NEGATIVE (Negative)
[2024-09-08] MEDS: Acetaminophen 325 MG TABLET 975 MG PO (11:54)
--- NOTE | 2024-09-08 11:55 | PC.NURSE ---
pt medicated for 7/10 ble pain, us previously performed.
[2024-09-08 11:56] VITALS: BP 151/68; PULSE 95; RESP 16; TEMP 36.7; O2SAT 95
[2024-09-08 12:00] VITALS: BP 151/68; PULSE 95; RESP 16; TEMP 36.7; O2SAT 95
== END 2024-09-08 12:01 | disposition home or self-care (01) ==
PROVIDERS: Physician Assistant Medical; Emergency Provider Emergency Medicine; PCP Internal Medicine
DX: R60.0 Localized edema (principal); I45.10 Unspecified right bundle-branch block; R94.31 Abnormal electrocardiogram [ECG] [EKG]; R06.00 Dyspnea, unspecified; Z86.718 Personal history of other venous thrombosis and embolism; Z79.899 Other long term (current) drug therapy; Z03.818 Encounter for observation for suspected exposure to other biological agents ruled out
CPT/HCPCS: 0241U; 71046; 80053; 83735; 83880; 84484; 85025; 93005; 93970; 99284; 99285

== ENCOUNTER → 2024-09-08 08:54 | Outpatient (BNV) | payer MEDICARE, MEDICAID, SELFPAY | PROVIDERS: Emergency Provider Emergency Medicine; PCP Internal Medicine; Visit Provider Radiology Diagnostic Radiology | DX: R60.0 Localized edema (principal); J84.10 Pulmonary fibrosis, unspecified | CPT/HCPCS: 71046; 93970 ==

== ENCOUNTER → 2024-09-08 08:54 | Outpatient (BNV) | payer MEDICARE, MEDICAID, SELFPAY | PROVIDERS: Emergency Provider Emergency Medicine; PCP Internal Medicine; Visit Provider Internal Medicine | DX: I45.10 Unspecified right bundle-branch block (principal); I25.2 Old myocardial infarction | CPT/HCPCS: 93010 ==

== ENCOUNTER 2024-09-15 13:23 | Outpatient (AMB) | payer MEDICARE, MEDICAID, SELFPAY ==
--- NOTE | 2024-09-15 13:26 | HO.NEPHOV ---
Vital Signs 09/15/24 13:28 Height 5 ft 8 in Weight 161 lb BMI 24.5 BP 134/76 Blood Pressure Location Rt brachial Position Sitting Pulse 65 Pulse Source Pulse Oximeter Pulse Oximetry (%) 93 Oxygen Delivery Method Room Air Intake Visit Reasons: BPH/ Conf [employer] Required: No Accompanied by: Self / Same As Patient Allergies finasteride Adverse Reaction (Intermediate, Verified 09/15/24 13:29) rash lisinopril Adverse Reaction (Intermediate, Verified 09/15/24 13:29) hyperkalemia Shellfish Allergy (Mild, Uncoded 07/31/24 15:40) NOT APPLICABLE Medication List - Last Reconciled 09/15/24 by Maximo Campbell MD adhesive tape As directed albuterol sulfate 90 mcg/actuation (Ventolin HFA) 2 puffs inhalation Q6H PRN alfuzosin ER 10 mg PO DAILY amlodipine 10 mg PO DAILY [ANTIBACTERIAL GAUZE PAD 4x4 inches As directed] cholecalciferol (vitamin D3) 25 mcg PO DAILY clopidogrel 75 mg PO DAILY cyanocobalamin (vitamin B-12) 1,000 mcg PO DAILY [disposable chux As directed] disposable gloves large gloves elastic bandage (Coban Self-Adherent Wrap) As directed empagliflozin (Jardiance) 10 mg PO DAILY gabapentin 100 mg PO BEDTIME glimepiride 2 mg PO QAM hydrocortisone 2.5% 1 appl topical BID PRN [Large Gauze Pads CURAD 4 x 4 in As directed] linagliptin (Tradjenta) 5 mg PO DAILY metoprolol tartrate 50 mg PO BID 90 days mometasone-formoterol 200-5 mcg/actuation (Dulera) 2 puffs inhalation BID non-adherent bandage (Curity Abdominal Pad) As directed rosuvastatin 20 mg PO DAILY tramadol 50 mg PO Q8H PRN 90 days HPI Comments Details: 77 yr old man with long standing HTN and DM with CKD h/o Colon CA s/p surgery and Chemo in 2010 Creatinine was 1.5 and 1.4 in December 2022 and hence this referral Also had hypercalcemia of 10.4 mg/dL h/o Varicose veins - s/p surgery an dnow with leg ulcers Being followed by wound clinic Recently completed a course of antibiotics [facility] Medical History Atherosclerotic cardiovascular disease Ischemic cardiomyopathy Essential hypertension Colon cancer Type 2 diabetes mellitus with hyperglycemia Hypercholesterolemia Diabetic nephropathy Vitamin D deficiency Peripheral vascular disease Coronary artery disease Generalized osteoarthritis Asthma Surgical History History of vascular surgery S/P sclerotherapy of varicose veins Family History Father Hypertension Mother CVD (cardiovascular disease) Hypertension Maternal Uncle Prostate cancer Social History Housing: House Alcohol intake: former Patient Tobacco Use Status: Never used Tobacco Tobacco use type: Cigarette e-Cigarette/Vaping Use: Never Used Second Hand Smoke Exposure: No Advance Directives Date on File: 02/03/21 service: Yes Current occupational status: retired and disabled Current occupational exposures/hazards: No Cognitive needs: Yes Hearing needs: No Vision needs: No Physical Exam Vital Signs: Last Vital Signs Pulse 65 09/15/24 13:28 BP 134/76 09/15/24 13:28 Pulse Ox 93 09/15/24 13:28 Oxygen Delivery Method Room Air 09/15/24 13:28 BMI result Body Mass Index 24.5 Comfortable Neck supple no JVD. Lungs entry equal no rales. Heart S1-S2 heard no gallop or rub. Abdomen soft nontender. Neuro alert awake oriented. No asterixis. Extremities ++ edema. Results Reviewed Nephrology Results: Hgb, (14.0-18.0) 12.1 g/dl L 09/08/24 WBC, (4.8-10.8) 7.0 X10*3/uL 09/08/24 Plt Count, (160-400) 130 X10*3/uL L 09/08/24 Sodium, (135-145) 140 mmol/L 09/08/24 Potassium, (3.3-5.1) 4.9 mmol/L 09/08/24 Chloride, (96-108) 108 mmol/L 09/08/24 Carbon Dioxide, (22-29) 23 mmol/L 09/08/24 BUN, (9-16) 33 mg/dL H 09/08/24 Creatinine, (0.5-1.4) 1.90 mg/dL H 09/08/24 Calcium, (8.4-10.2) 9.2 mg/dL 09/08/24 Urine Protein, (Neg-Trace) 300 (3+) mg/dL H 09/08/24 Assessment & Plan Assessment & Plan (1) Chronic kidney disease: Code(s): N18.9 - Chronic kidney disease, unspecified Category: Medical Plan: CKD 3 most likely due to hypertensive diabetic kidney disease Non diabetic causes seem unlikely based on recent work up Non nephrotic range proteinuria due to Diabetic kidney Mild bump in creatinine due ot natural progression CT scan showed cortical thinning. NO hydro in the past In the meantime, Avoid nephrotoxins Agree with ACEi and SGLT-2 inhibitors GLycosuria due to SGLT-2 inhibitors (2) BPH (benign prostatic hyperplasia): Code(s): N40.0 - Benign prostatic hyperplasia without lower urinary tract symptoms Category: Medical Plan: Follow with Urology (3) Hypercalcemia: Code(s): E83.52 - Hypercalcemia Category: Medical Plan: Repeat Ca is normal SPEP - no MCGP Orders: Orders Basic Metabolic Panel 3 Months N18.9 - Chronic kidney disease, unspecified Coding Level of Care Code Est Pt Level 4 (98651) Diagnoses Chronic kidney disease N18.9 BPH (benign prostatic hyperplasia) N40.0 Hypercalcemia E83.52
[2024-09-15 13:28] VITALS: BP 134/76; PULSE 65; O2SAT 93; BMI 24.5
--- OUTSIDE RECORDS SUMMARY | 2024-09-15 13:51 | XMS_ITS | Patient Health Record ---
Author Organization [facility] Address [address] [place] [id number] Care Team Providers Care Catering Assistant Name Role Phone Leonel Becker Domenica [phone] Reason For Referral No Information Plan Of Treatment No Information
== END 2024-09-15 13:43 | disposition home or self-care (01) ==
LOC: HO.HKA 13:23
PROVIDERS: PCP Internal Medicine; Visit Provider Internal Medicine Hypertension Specialist
DX: N18.9 Chronic kidney disease, unspecified (principal); N40.0 Benign prostatic hyperplasia without lower urinary tract symptoms; E83.52 Hypercalcemia
CPT/HCPCS: 99214

== ENCOUNTER → 2024-09-15 13:23 | Outpatient (BNVA) | payer MEDICARE, MEDICAID, SELFPAY | PROVIDERS: PCP Internal Medicine; Visit Provider Internal Medicine Hypertension Specialist | DX: E11.22 Type 2 diabetes mellitus with diabetic chronic kidney disease (principal); I12.9 Hypertensive chronic kidney disease with stage 1 through stage 4 chronic kidney disease, or unspecified chronic kidney disease; N18.30 Chronic kidney disease, stage 3 unspecified; N40.0 Benign prostatic hyperplasia without lower urinary tract symptoms; E83.52 Hypercalcemia | CPT/HCPCS: 99212 ==

== ENCOUNTER 2024-12-08 13:42 | Outpatient (AMB) | payer MEDICARE, MEDICAID, SELFPAY ==
--- NOTE | 2024-12-08 14:08 | A.OFFPC_ITS ---
Vital Signs 12/08/24 14:09 Height 5 ft 8 in Weight 160 lb 0.889 oz BMI 24.3 BP 110/70 Blood Pressure Location Lt brachial Position Sitting Pulse 56 Pulse Source Pulse Oximeter Temp 97.1 F Temp Source Temporal Artery Scan Pulse Oximetry (%) 95 Oxygen Delivery Method Room Air Intake Visit Reasons: DM, CKD - see comments Intake Note: Patient is here to follow up on DM, CKD. Shift Coordinator Required: No Certified Professional Coder: Present Accompanied by: Daughter Allergies finasteride Adverse Reaction (Intermediate, Verified 12/08/24 14:09) rash lisinopril Adverse Reaction (Intermediate, Verified 12/08/24 14:09) hyperkalemia Shellfish Allergy (Mild, Uncoded 12/08/24 14:09) NOT APPLICABLE Tobacco use date assessed: 12/08/24 Fall risk assessment: No Falls in past year Last assessed Fall Risk: 12/08/24 Dental Screening Dental Screen Date: 07/31/24 [facility] Medical History Atherosclerotic cardiovascular disease Ischemic cardiomyopathy Essential hypertension Colon cancer Type 2 diabetes mellitus with hyperglycemia Hypercholesterolemia Diabetic nephropathy Vitamin D deficiency Peripheral vascular disease Coronary artery disease Generalized osteoarthritis Asthma Surgical History History of vascular surgery S/P sclerotherapy of varicose veins Family History Father Hypertension Mother CVD (cardiovascular disease) Hypertension Maternal Uncle Prostate cancer Social History Housing: House Alcohol intake: former Patient Tobacco Use Status: Never used Tobacco Tobacco use type: Cigarette e-Cigarette/Vaping Use: Never Used Second Hand Smoke Exposure: No Advance Directives Date on File: 02/03/21 service: Yes Current occupational status: retired and disabled Current occupational exposures/hazards: No Cognitive needs: Yes (Cane) Hearing needs: Yes (Hearing aide) Vision needs: No Questionnaire Thrive Questionnaire Date Thrive assessed: 07/24/24 I am a: Patient What is your living situation today?: I have a steady place to live Within the past 12 months, did the food you bought not last and you didn't have the money to get more?: Never true Within the past 12 months, did you worry whether your food would run out before you got money to buy more?: Never true Do you have trouble paying for medicines?: No Do you have trouble getting transportation to medical appointments?: No Do you have trouble paying your heating and electricity bill?: No Do you have trouble taking care of your child, family member or friend?: No Do you have trouble with day-to-day activities such as bathing, preparing meals, shopping, managing finances, etc.?: No Are you currently unemployed and looking for a job?: No Are you interested in more education?: No Please select the resources that you would like help with: None Currently or been in a relationship where the following occur: No concerns reported THRIVE Score: 0 BALJIT-7 AMB Questionnaire BALJIT-7 Date BALJIT - 7 assessed: 07/31/24 Source: Developed by Drs. Leonel King, Sherry Rosales, Herman Rodriguez and colleagues, with an educational sandi from [employer]. Physical exam (Primary Care) Vital Signs: Last Vital Signs Temp 97.1 F 12/08/24 14:09 Pulse 56 12/08/24 14:09 BP 110/70 12/08/24 14:09 Pulse Ox 95 12/08/24 14:09 Oxygen Delivery Method Room Air 12/08/24 14:09 BMI result Body Mass Index 24.3 Tobacco/Smoking Status: Tobacco use Status Tobacco use date assessed 12/08/24 12/08/24 14:16 Patient Tobacco Use Status Never used Tobacco 12/08/24 14:16 Tobacco use type Cigarette 12/08/24 14:16 e-Cigarette/Vaping Use Never Used 12/08/24 14:16 Thrive Assessment: Date of Thrive Assessment Date Thrive assessed 07/24/24 12/08/24 14:16 Currently or been in a relationship where the following occur: No concerns reported Const General: alert; No acute distress Eyes Conjunctivae: conjunctivae normal Resp Auscultation: clear to auscultation bilaterally Cardio Rate: regular rate Rhythm: regular rhythm GI Inspection: Yes normal to inspection Extrem General: Yes normal to inspection and No edema Results AMB Hemoglobin A1c AMB Hemoglobin A1c 6.1 % Last Edit by JINNY Morales on 12/08/24 14:20 Results Reviewed Results Reviewed: Laboratory Last Values Hgb A1c (Clinic) 6.1 % (4.0-6.0) H 12/08/24 14:06 Coding Level of Care Code Est Pt Level 4 (45295) Diagnoses Type 2 diabetes mellitus with hyperglycemia, without long-term current use of insulin E11.65 Diabetes mellitus salvage determiner insulin use: without salvage determiner use Coronary artery disease involving [place] coronary artery of [place] heart without angina pectoris I25.10 Associated angina: without angina Coronary Disease-Associated Artery/Lesion type: [place] artery [place] vs. transplanted heart: [place] heart Hypercholesterolemia E78.00 Essential hypertension I10 Chronic kidney disease N18.9 Mild intermittent asthma without complication J45.20 Asthma complication type: uncomplicated Asthma persistence: intermittent Asthma severity: mild Impacted cerumen of both ears H61.23 Assessment & Plan Assessment & Plan (1) Type 2 diabetes mellitus with hyperglycemia: Comment: Dr. Villagomez Code(s): E11.65 - Type 2 diabetes mellitus with hyperglycemia Category: Medical Qualifiers: Diabetes mellitus [facility] insulin use: without [facility] use Qualified Code(s): E11.65 - Type 2 diabetes mellitus with hyperglycemia Plan: Decrease the amount of carbohydrate intake, pasta, bread, rice and potatoes are all sugar and that is aside from all the sweet stuff, remember that fruits are good but they are Sweet also. Hemoglobin A1c goal of less than 7.0. Patient is on Jardiance 10 mg once a day glimepiride 2 mg once a day Tradjenta 5 mg once a day (2) Coronary artery disease: Comment: Stent placement 2004 [place] October 2006 echocardiogram November 2016 EF 40-45% ischemic cardiomyopathy myocardial perfusion January 2017 is ejection fraction 40% Code(s): I25.10 - Atherosclerotic heart disease of [place] coronary artery without angina pectoris Category: Medical Qualifiers: Associated angina: without angina Coronary Disease-Associated Artery/Lesion type: [place] artery [place] vs. transplanted heart: [place] heart Qualified Code(s): I25.10 - Atherosclerotic heart disease of [place] coronary artery without angina pectoris Plan: Control the cholesterol, weight, blood pressure, diabetes continue with clopidogrel 75 mg once a day (3) Hypercholesterolemia: Code(s): E78.00 - Pure hypercholesterolemia, unspecified Category: Medical Plan: Avoid fried foods, chicken skin, eggs, butter margarine, pastries and meat. Be it pork or beef they have a lot of cholesterol patient will need retesting in January. LDL goal of less than 70 and triglyceride of less than 150 (4) Essential hypertension: Code(s): I10 - Essential (primary) hypertension Category: Medical Plan: Continue with blood pressure medication. Decrease salt intake and exercise takes amlodipine 10 mg once a day metoprolol 50 mg twice a day (5) Chronic kidney disease: Code(s): N18.9 - Chronic kidney disease, unspecified Category: Medical Plan: Keep well hydrated avoid NSAIDs. (6) Asthma: Code(s): J45.909 - Unspecified asthma, uncomplicated Category: Medical Qualifiers: Asthma complication type: uncomplicated Asthma persistence: intermittent Asthma severity: mild Qualified Code(s): J45.20 - Mild intermittent asthma, uncomplicated Plan: Albuterol inhaler as needed (7) Impacted cerumen of both ears: Code(s): H61.23 - Impacted cerumen, bilateral Category: Medical Plan: will schedule for ear irrigation Plan History of Present Illness The patient is a 78-year-old male presenting for a follow-up visit. He has a history of coronary artery disease, asthma, hypercholesterolemia, diabetes mellitus, chronic kidney disease, and essential hypertension. The patient was diagnosed with colon cancer in 2002 but has refused colonoscopy since then. He also has venous stasis dermatitis and ischemic cardiomyopathy. The patient has benign prostatic hyperplasia and was last seen in July 2024. 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 The patient avoids nephrotoxins and continues with MERLINE inhibitors and SGLT2 inhibitors. In August, he visited the emergency room for leg swelling, which was evaluated with an ultrasound that showed no deep vein thrombosis and no cardiopulmonary abnormalities, leading to a diagnosis of peripheral vascular disease. Blood work from September 08 showed mild anemia and a low platelet count, which is chronic. Renal function is stable with a creatinine level of 1.9, and hemoglobin A1c is 6.1. The patient's LDL cholesterol was last tested in January 2024, with a level of 63. Health Maintenance Social History Review of Systems Physical Exam Results - Labs: Mild anemia and low platelet count, stable renal function with creatinin e 1.9, hemoglobin A1c 6.1, LDL cholesterol 63 (last tested January 2024) Plan Patient was informed and verbally consented to the use of an ambient scribe for clinic note documentation during this visit. 1. Coronary Artery Disease The patient is advised to continue with clopidogrel 75 mg once a day to manage coronary artery disease. 2. Diabetes Mellitus The diabetes management plan includes maintaining a hemoglobin A1c goal of less than 7.0, with current medications including Jardiance 10 mg once a day, glimepiride 2 mg once a day, and Tradjenta 5 mg once a day. 3. Chronic Kidney Disease The patient is advised to avoid nephrotoxins and continue with MERLINE inhibitors and SGLT2 inhibitors to manage chronic kidney disease stage 3. 4. Hypercholesterolemia The cholesterol management plan includes retesting in January with an LDL goal of less than 70 and triglycerides of less than 150. 5. Essential Hypertension The hypertension management plan includes taking amlodipine 10 mg once a day and metoprolol 50 mg twice a day. 6. Asthma The patient is advised to use an albuterol inhaler as needed for asthma management. Discussion Notes Patient Instructions - Continue taking clopidogrel 75 mg once a day for coronary artery disease. - Maintain hemoglobin A1c goal of less than 7.0 with current diabetes medications. - Avoid nephrotoxins and continue with MERLINE inhibitors and SGLT2 inhibitors for chronic kidney disease. - Retest cholesterol in January, aiming for LDL less than 70 and triglycerides less than 150. - Take amlodipine 10 mg once a day and metoprolol 50 mg twice a day for hypertension. - Use albuterol inhaler as needed for asthma. Orders: Orders Free T4 (Free Thyroxine) 3 Months - Type 2 diabetes mellitus with hyperglycemia Microalbumin, Random (w Creat) 3 Months - Type 2 diabetes mellitus with hyperglycemia Thyroid Stimulating Hormone 3 Months - Type 2 diabetes mellitus with hyperglycemia Lipid Panel 3 Months - Type 2 diabetes mellitus with hyperglycemia, E78.00 - Pure hypercholesterolemia, unspecified IRON PROFILE 3 Months - Type 2 diabetes mellitus with hyperglycemia AMB Hemoglobin A1c Today - Type 2 diabetes mellitus with hyperglycemia Complete Blood Count Auto Diff 3 Months - Type 2 diabetes mellitus with hyperglycemia Comprehensive Met. Panel 3 Months - Type 2 diabetes mellitus with hyperglycemia Creatinine Urine 3 Months . - Type 2 diabetes mellitus with hyperglycemia Hemoglobin A1c 3 Months - Type 2 diabetes mellitus with hyperglycemia Ferritin 3 Months - Type 2 diabetes mellitus with hyperglycemia Vitamin B12 and Folate 3 Months E11.65 - Type 2 diabetes mellitus with hyperglycemia Prostate Specific Antigen Scr 3 Months E11.65 - Type 2 diabetes mellitus with hyperglycemia UA CC w/rflx Micro + Cult 3 Months E11.65 - Type 2 diabetes mellitus with hyperglycemia, R30.0 - Dysuria Referrals Speech and Hearing Referral H91.90 - Unspecified hearing loss, unspecified ear
[2024-12-08 14:09] VITALS: BP 110/70; PULSE 56; TEMP 36.2; O2SAT 95; BMI 24.3
== END 2024-12-08 15:04 | disposition home or self-care (01) ==
LOC: HO.HMCH 13:43
PROVIDERS: PCP Internal Medicine; Visit Provider Internal Medicine
DX: E11.65 Type 2 diabetes mellitus with hyperglycemia (principal); I25.10 Atherosclerotic heart disease of native coronary artery without angina pectoris; E78.00 Pure hypercholesterolemia, unspecified; I12.9 Hypertensive chronic kidney disease with stage 1 through stage 4 chronic kidney disease, or unspecified chronic kidney disease; N18.9 Chronic kidney disease, unspecified; J45.20 Mild intermittent asthma, uncomplicated; H61.23 Impacted cerumen, bilateral

== ENCOUNTER → 2024-12-08 13:42 | Outpatient (BNVA) | payer MEDICARE, MEDICAID, SELFPAY | PROVIDERS: PCP Internal Medicine; Visit Provider Internal Medicine | DX: E11.65 Type 2 diabetes mellitus with hyperglycemia (principal); I25.10 Atherosclerotic heart disease of native coronary artery without angina pectoris; E78.00 Pure hypercholesterolemia, unspecified; I12.9 Hypertensive chronic kidney disease with stage 1 through stage 4 chronic kidney disease, or unspecified chronic kidney disease; E11.22 Type 2 diabetes mellitus with diabetic chronic kidney disease; N18.9 Chronic kidney disease, unspecified; J45.20 Mild intermittent asthma, uncomplicated; H61.23 Impacted cerumen, bilateral | CPT/HCPCS: 83036; 99212 ==

== ENCOUNTER 2024-12-29 08:14 | Outpatient (REF) | payer MEDICARE, MEDICAID, SELFPAY ==
[2024-12-29 09:19] LABS: Anion Gap 12 (12-20); Blood Urea Nitrogen 28 mg/dL (9-16); Calcium 9.8 mg/dL (8.4-10.2); Carbon Dioxide 28 mmol/L (22-29); Chloride 107 mmol/L (96-108); Estimated Glomerular Filt Rate 44; Potassium 5.2 mmol/L (3.3-5.1); Sodium 142 mmol/L (135-145)
[2024-12-29 09:30] LABS: Free T4 (Free Thyroxine) 1.12 ng/dL (0.71-1.85)
[2024-12-29 09:37] LABS: Thyroid Stimulating Hormone 6.43 uIU/mL (0.32-4.0)
[2024-12-29 09:38] LABS: PSA,Total (Free>4and<10) 2.98 ng/mL (0.00-4.00)
== END 2024-12-29 08:15 | disposition home or self-care (01) ==
LOC: HO.10HDL 08:14
PROVIDERS: Internal Medicine; Urology; Visit Provider Internal Medicine Hypertension Specialist
DX: Z12.5 Encounter for screening for malignant neoplasm of prostate (principal); R79.89 Other specified abnormal findings of blood chemistry; N40.0 Benign prostatic hyperplasia without lower urinary tract symptoms; N18.9 Chronic kidney disease, unspecified
CPT/HCPCS: 36415; 80048; 84153; 84439; 84443

== ENCOUNTER 2025-01-27 13:41 | Outpatient (AMB) | payer MEDICARE, MEDICAID, SELFPAY ==
[2025-01-27 13:59] VITALS: BP 160/78; PULSE 81; TEMP 36.3; O2SAT 96; BMI 24.0
--- NOTE | 2025-01-27 13:59 | MHC.PC.OV ---
Vital Signs 01/27/25 13:59 01/27/25 14:36 Height 5 ft 8 in Weight 158 lb 1.143 oz BMI 24.0 BP 160/78 H 146/72 H Blood Pressure Location Lt brachial Lt brachial Position Sitting Sitting Pulse 81 Pulse Source Pulse Oximeter Temp 97.3 F Temp Source Temporal Artery Scan Pulse Oximetry (%) 96 Oxygen Delivery Method Room Air Intake Visit Reasons: Ear Irrigation Intake Note: Patient is here to follow up on DM, CKD. Creel Cleaner Required: No Water Quality Manager: Present Accompanied by: Daughter Allergies finasteride Adverse Reaction (Intermediate, Verified 01/27/25 14:09) rash lisinopril Adverse Reaction (Intermediate, Verified 01/27/25 14:09) hyperkalemia Shellfish Allergy (Mild, Uncoded 01/27/25 14:09) NOT APPLICABLE Medication List - Last Reconciled 01/27/25 by Janette Moser PA-C adhesive tape As directed albuterol sulfate 90 mcg/actuation (Ventolin HFA) 2 puffs inhalation Q6H PRN alfuzosin ER 10 mg PO DAILY amlodipine 10 mg PO DAILY [ANTIBACTERIAL GAUZE PAD 4x4 inches As directed] cholecalciferol (vitamin D3) 25 mcg PO DAILY clopidogrel 75 mg PO DAILY cyanocobalamin (vitamin B-12) 1,000 mcg PO DAILY [disposable chux As directed] disposable gloves large gloves elastic bandage (Coban Self-Adherent Wrap) As directed empagliflozin (Jardiance) 10 mg PO DAILY gabapentin 100 mg PO BEDTIME glimepiride 2 mg PO QAM hydrocortisone 2.5% 1 appl topical BID PRN [Large Gauze Pads CURAD 4 x 4 in As directed] linagliptin (Tradjenta) 5 mg PO DAILY metoprolol tartrate 50 mg PO BID 90 days mometasone-formoterol 200-5 mcg/actuation (Dulera) 2 puffs inhalation BID non-adherent bandage (Curity Abdominal Pad) As directed rosuvastatin 20 mg PO DAILY tramadol 50 mg PO Q8H PRN 90 days Tobacco use date assessed: 12/08/24 Fall risk assessment: No Falls in past year Last assessed Fall Risk: 12/08/24 Dental Screening Dental Screen Date: 01/27/25 Did you have a dental visit in the last 12 months?: No Did you have a dental problem in the last 6 months where you did not have access to dental care?: No Was dental information given to patient?: No HPI Ear Irrigation HPI Details 79-year-old male coming to the office for ear cleaning last seen by Dr. Sevilla 11/2024. Patient tells us today he has been having decreased hearing bilaterally. [facility] Medical History Atherosclerotic cardiovascular disease Ischemic cardiomyopathy Essential hypertension Colon cancer Type 2 diabetes mellitus with hyperglycemia Hypercholesterolemia Diabetic nephropathy Vitamin D deficiency Peripheral vascular disease Coronary artery disease Generalized osteoarthritis Asthma Surgical History History of vascular surgery S/P sclerotherapy of varicose veins Family History Father Hypertension Mother CVD (cardiovascular disease) Hypertension Maternal Uncle Prostate cancer Social History Housing: House Alcohol intake: former Patient Tobacco Use Status: Never used Tobacco Tobacco use type: Cigarette e-Cigarette/Vaping Use: Never Used Second Hand Smoke Exposure: No Advance Directives Date on File: 02/03/21 service: Yes Current occupational status: retired and disabled Current occupational exposures/hazards: No Cognitive needs: Yes (Cane) Hearing needs: Yes (Hearing aide) Vision needs: No Questionnaire PHQ-9 Over the last 2 weeks, how often have you been bothered by any of the following problems? 1. Little interest or pleasure in doing things: several days 2. Feeling down, depressed, or hopeless: several days 3. Trouble falling or staying asleep, or sleeping too much: several days 4. Feeling tired or having little energy: several days 5. Poor appetite or overeating: several days 6. Feeling bad about yourself - or that you are a failure or have let yourself or your family down: several days 7. Trouble concentrating on things, such as reading the newspaper or watching television: several days 8. Moving or speaking so slowly that other people could have noticed. Or the opposite - being so fidgety or restless that you have been moving around a lot more than usual: several days 9. Thoughts that you would be better off or of hurting yourself in some way: not at all Total score: 8 Source: Developed by Drs. Leonel King, Sherry Rosales, Herman Rodriguez and colleagues, with an educational sandi from [employer]. Thrive Questionnaire Date Thrive assessed: 07/24/24 I am a: Patient What is your living situation today?: I have a steady place to live Within the past 12 months, did the food you bought not last and you didn't have the money to get more?: Never true Within the past 12 months, did you worry whether your food would run out before you got money to buy more?: Never true Do you have trouble paying for medicines?: No Do you have trouble getting transportation to medical appointments?: No Do you have trouble paying your heating and electricity bill?: No Do you have trouble taking care of your child, family member or friend?: No Do you have trouble with day-to-day activities such as bathing, preparing meals, shopping, managing finances, etc.?: No Are you currently unemployed and looking for a job?: No Are you interested in more education?: No Please select the resources that you would like help with: None Currently or been in a relationship where the following occur: No concerns reported THRIVE Score: 0 AUDIT C Alcohol Use Questionnaire (AUDIT-C) 1. How often do you have a drink containing alcohol?: Never 3. How often do you have six or more drinks on one occasion?: Never Total Score: 0 BALJIT-7 AMB Questionnaire BALJIT-7 Date BALJIT - 7 assessed: 07/31/24 Feeling nervous, anxious, or on edge: 0 = Not at all Not being able to stop or control worryin = Not at all Worrying too much about different things: 0 = Not at all Trouble relaxin = Not at all Being so restless that it is hard to sit still: 0 = Not at all Becoming easily annoyed or irritable: 0 = Not at all Feeling afraid as if something awful might happen: 0 = Not at all Total BALJIT-7 score (0-4 normal; 5-9 mild; 10-14 moderate; 15-21 severe): 0 Source: Developed by Sherry Elliott, Herman Rodriguez and colleagues, with an educational sandi from [employer]. Review of Systems Const Denies body aches, Denies chills, Denies fever(s) and Denies headache(s) ENT Reports as per HPI and Denies headache(s) Card Denies chest pain, Denies irregular heart rhythm, Denies lightheadedness and Denies dyspnea Resp Denies dyspnea GI Reports no additional complaints Neuro Denies headache(s) Physical exam (Primary Care) Vital Signs: Last Vital Signs Temp 97.3 F 01/27/25 13:59 Pulse 81 01/27/25 13:59 BP 146/72 H 01/27/25 14:36 Pulse Ox 96 01/27/25 13:59 Oxygen Delivery Method Room Air 01/27/25 13:59 BMI result Body Mass Index 24.0 Tobacco/Smoking Status: Tobacco use Status Tobacco use date assessed 12/08/24 01/27/25 14:01 Patient Tobacco Use Status Never used Tobacco 01/27/25 14:01 Tobacco use type Cigarette 01/27/25 14:01 e-Cigarette/Vaping Use Never Used 01/27/25 14:01 PHQ-9: PHQ-9 Score PHQ-9: Total score 8 01/27/25 14:48 Thrive Assessment: Date of Thrive Assessment Date Thrive assessed 07/24/24 01/27/25 14:01 Currently or been in a relationship where the following occur: No concerns reported Const General: cooperative, healthy appearing, comfortable and no acute distress HENMT Head: Yes normocephalic Ears: hearing grossly normal bilaterally and Abnormal EAC present cerumen impaction bilateral General nose exam: Normal external nose present Resp Effort & Inspection: normal respiratory effort Cardio Rate: regular rate Psych Affect: normal affect Attitude: cooperative Insight: Good insight present (Psych) Judgement: Good judgement present (Psych) Office Procedures Cerumen Removal From which ear canal was the cerumen removed: bilateral Removal: cerumen loop/spoon Notes: patient tolerated procedure well and no complications 97482-[id number] Wax Removal by Spoon/Curette Flu Questionnaire Does the patient have a severe egg allergy?: No Does the patient have severe life threatening allergies?: No Does the patient have a fever or illness today?: No Has the patient ever had Guillain-[place] Syndrome?: No Has the patient ever had any past reaction to a flu shot?: No Immunizations Fluarix [id number] (PF) 45 mcg (15 mcg x 3)/0.5 mL IM syringe Performing Provider: Janette Moser PA-C [facility] [place] [facility] Administered by: June Bowman CMA on 01/27/25 14:48 Dose Route Admin Location Dispensed Lot Number Expiration Date [facility] Manufacturing Leader 0.5 mL IM Right Deltoid 0.5 mL [id number] 09/15/25 [id number] [employer] VIS Given Date VIS Provided VIS Publication Date 01/27/25 Single Vaccine 24 Eligibility Eligibility Date Funding Source Not [facility] Eligible 01/27/25 Private Coding Level of Care Code Est Pt Level 3 (65609) Diagnoses Essential hypertension I10 Impacted cerumen of both ears H61.23 CPT Codes Office Procedure - CPT: 63040-Ldq Wax Removal by Spoon/Curette ([id number]) Assessment & Plan Assessment & Plan (1) Essential hypertension: Code(s): I10 - Essential (primary) hypertension Category: Medical Plan: Continue on current blood pressure medication. Avoid salt intake and encourage healthy diet and regular exercise. Blood pressure elevated in the office today. Patient attributes this to anxiety and agrees to take the blood pressure at home and reach out if exceeds 140/90. (2) Impacted cerumen of both ears: Code(s): H61.23 - Impacted cerumen, bilateral Category: Medical Plan: Left ear was cleaned using lighted curette and TM was visualized as intact with well aerated middle ear spaces without perforation or retration. Right ear was unable to be cleaned completely. Patient was given debrox drops and advised to use them for one week and return to clinic for repeat ear cleaning. Plan This note was constructed using voice recognition software. While every effort has been made to ensure accuracy and rock mason, still areas may have been included sometimes these areas may affect the content or meeting of the given symptoms. Total time spent caring for the patient today was 20 minutes. This includes time spent before the visit reviewing the chart, time spent during the visit, and time spent after the visit and documentation. Orders: Orders Influenza [id number] Immunization Today Z23 - Encounter for immunization Medications: New carbamide peroxide 6.5% (Debrox) 5 drps otic (ears) DAILY 15 mL 0RF 4 days
[2025-01-27 14:36] VITALS: BP 146/72
--- OUTSIDE RECORDS SUMMARY | 2025-01-27 15:19 | XMS_ITS | Patient Health Record ---
Author Organization [facility] Address [address] [place] [id number] Care Team Providers Care Stud Driver Name Role Phone Leonel Becker Domenica [phone] Reason For Referral No Information Plan Of Treatment No Information
== END 2025-01-27 14:50 | disposition home or self-care (01) ==
LOC: HO.HMCH 13:42
PROVIDERS: PCP Internal Medicine
DX: I10 Essential (primary) hypertension (principal); H61.23 Impacted cerumen, bilateral; Z23 Encounter for immunization

== ENCOUNTER → 2025-01-27 13:41 | Outpatient (BNVA) | payer MEDICARE, MEDICAID, SELFPAY | PROVIDERS: PCP Internal Medicine | DX: I10 Essential (primary) hypertension (principal); H61.23 Impacted cerumen, bilateral; Z23 Encounter for immunization | CPT/HCPCS: 69210; 90471; 90656; 99212 ==

== ENCOUNTER 2025-02-02 13:39 | Outpatient (AMB) | payer MEDICARE, MEDICAID, SELFPAY ==
--- NOTE | 2025-02-02 14:04 | A.OFFVIS_ITS ---
Intake Visit Reasons: 1y/PSA Intake Note: Patient is present for 1yr follow up with PSA * 12/29 Total PSA:2.98 Urology Medication:ALFUZOSIN,VITAMIN B12 Antibiotic Allergy:NONE Blood Thinner:NONE PVR:20ml Registered Nurse Midwife Required: No Allergies finasteride Adverse Reaction (Intermediate, Verified 02/02/25 14:05) rash lisinopril Adverse Reaction (Intermediate, Verified 02/02/25 14:05) hyperkalemia Shellfish Allergy (Mild, Uncoded 01/27/25 14:09) NOT APPLICABLE HPI Comments Details: 02/02/25--poor he is here for 1 year follow-up renal ultrasound he is on alfuzosin BPH PSA on 12/29/2024 is 2.90 use good good I got your blood work everything looks good it is 2.98 which is perfect a year still taking the alfuzosin her 02/04/24--Michael is a 78-year-old male who presents today to the office for FU. He was initially evaluated on 02/15/23 for an evaluation of incomplete bladder emptying and BPH. He was started on proscar. He completed his AUA symptoms score questionnaire resulting in 18. He denies any history of cigarette smoking. He states the alfuzosin is working well/ Discussed PSA--01/28/24--1.80. Plan will continue alfuzosin daily follow-up in 1 year PSA prior Review of chart: 04/05/23-- FU states stopped the proscar because he got a rash. He declines cystoscopy for today. PMH- DM, colon cancer s/p chemo, CAD, PVD. He complains of nocturia x 3, daytime urinary frequency. Denies dysuria I have reviewed the lab results from 01/04/2023 revealed creatinine 1.4 and BUN was 10. I have reviewed Bladder US 12/28/22- BLADDER: Partially distended, limiting evaluation. Bilateral ureteral jets are demonstrated. Prevoid bladder volume is 138 mL. Postvoid bladder volume is 68.8 mL. Prostate volume is 52.5 mL. Enlarged, heterogeneous lobulated prostate gland with echogenic foci characteristic of coarse calcifications. Plan: Alfuzosin 10 mg, d/c proscar. FU in 6 months, PSA prior [facility] Medical History Atherosclerotic cardiovascular disease Ischemic cardiomyopathy Essential hypertension Colon cancer Type 2 diabetes mellitus with hyperglycemia Hypercholesterolemia Diabetic nephropathy Vitamin D deficiency Peripheral vascular disease Coronary artery disease Generalized osteoarthritis Asthma Surgical History History of vascular surgery S/P sclerotherapy of varicose veins Family History Father Hypertension Mother CVD (cardiovascular disease) Hypertension Maternal Uncle Prostate cancer Social History Housing: House Alcohol intake: former Patient Tobacco Use Status: Never used Tobacco Tobacco use type: Cigarette e-Cigarette/Vaping Use: Never Used Second Hand Smoke Exposure: No Advance Directives Date on File: 02/03/21 service: Yes Current occupational status: retired and disabled Current occupational exposures/hazards: No Cognitive needs: Yes (Cane) Hearing needs: Yes (Hearing aide) Vision needs: No Office Procedures Post Void Residual Post Residual Void Post Void Residual (PVR): 20 57842-[id number] Void Residual by ultrasound Results AMB Urinalysis, Automated UA Leukoctes 0 Alicia/uL Last Edit by Joceline Gerber on 02/02/25 16:53 UA Nitrite Negative Last Edit by Joceline Gerber on 02/02/25 16:53 UA Urobilinogen 0.2 mg/dL Last Edit by Joceline Gerber on 02/02/25 16:53 UA Protein 300 mg/dL Last Edit by Joceline Gerber on 02/02/25 16:53 UA pH 6.0 Last Edit by Joceline Gerber on 02/02/25 16:53 UA Blood 0 Umesh/uL Last Edit by Joceline Gerber on 02/02/25 16:53 UA Specific Martell 1.020 Last Edit by Joceline Gerber on 02/02/25 16:53 UA Ketone Negative Last Edit by Joceline Gerber on 02/02/25 16:53 UA Bilirubin 0 mg/dL Last Edit by Joceline Gerber on 02/02/25 16:53 UA Glucose 1000 mg/dL Last Edit by Joceline Gerber on 02/02/25 16:53 Assessment & Plan Assessment & Plan Orders: Orders AMB Urinalysis Automated Today Z13.9 - Encounter for screening, unspecified AMB Post Void Residual by ultrasound Today N40.0 - Benign prostatic hyperplasia without lower urinary tract symptoms, R39.14 - Feeling of incomplete bladder emptying Medications: Refilled alfuzosin ER administer after the same meal each day 10 mg PO DAILY 90 tabs 3RF Coding CPT Codes Post Residual Void - PVR CPT Code: 98206-Scaf Void Residual by ultrasound ([id number])
== END 2025-02-02 14:30 | disposition home or self-care (01) ==
LOC: HO.HUSH 13:40
PROVIDERS: PCP Internal Medicine; Visit Provider Urology
DX: Z13.9 Encounter for screening, unspecified (principal)

== ENCOUNTER → 2025-02-02 13:39 | Outpatient (BNVA) | payer MEDICARE, MEDICAID, SELFPAY | PROVIDERS: PCP Internal Medicine; Visit Provider Urology | DX: N40.0 Benign prostatic hyperplasia without lower urinary tract symptoms (principal); R39.14 Feeling of incomplete bladder emptying; N18.9 Chronic kidney disease, unspecified; R35.0 Frequency of micturition; Z12.5 Encounter for screening for malignant neoplasm of prostate; Z13.9 Encounter for screening, unspecified | CPT/HCPCS: 51798; 81003; 99212 ==

== ENCOUNTER 2025-02-23 13:45 | Outpatient (AMB) | payer MEDICARE, MEDICAID, SELFPAY ==
[2025-02-23 13:47] VITALS: BP 130/62; PULSE 61; O2SAT 94; BMI 24.3
--- NOTE | 2025-02-23 13:47 | HO.NEPHOV ---
Vital Signs 02/23/25 13:47 Height 5 ft 8 in Weight 160 lb BMI 24.3 BP 130/62 Blood Pressure Location Lt brachial Position Sitting Pulse 61 Pulse Source Pulse Oximeter Pulse Oximetry (%) 94 Oxygen Delivery Method Room Air Intake Visit Reasons: Oct follow-up w/labs-Conf [employer] Assayer Required: No Accompanied by: Self / Same As Patient Allergies finasteride Adverse Reaction (Intermediate, Verified 02/23/25 13:51) rash lisinopril Adverse Reaction (Intermediate, Verified 02/23/25 13:51) hyperkalemia Shellfish Allergy (Mild, Uncoded 01/27/25 14:09) NOT APPLICABLE Medication List - Last Reconciled 02/23/25 by Maximo Campbell MD adhesive tape As directed albuterol sulfate 90 mcg/actuation (Ventolin HFA) 2 puffs inhalation Q6H PRN alfuzosin ER 10 mg PO DAILY amlodipine 10 mg PO DAILY [ANTIBACTERIAL GAUZE PAD 4x4 inches As directed] carbamide peroxide 6.5% (Debrox) 5 drps otic (ears) DAILY 4 days cholecalciferol (vitamin D3) 25 mcg PO DAILY clopidogrel 75 mg PO DAILY cyanocobalamin (vitamin B-12) 1,000 mcg PO DAILY [disposable chux As directed] disposable gloves large gloves elastic bandage (Coban Self-Adherent Wrap) As directed empagliflozin (Jardiance) 10 mg PO DAILY gabapentin 100 mg PO BEDTIME glimepiride 2 mg PO QAM hydrocortisone 2.5% 1 appl topical BID PRN [Large Gauze Pads CURAD 4 x 4 in As directed] linagliptin (Tradjenta) 5 mg PO DAILY metoprolol tartrate 50 mg PO BID 90 days mometasone-formoterol 200-5 mcg/actuation (Dulera) 2 puffs inhalation BID non-adherent bandage (Curity Abdominal Pad) As directed rosuvastatin 20 mg PO DAILY tramadol 50 mg PO Q8H PRN 90 days HPI Comments Details: 77 yr old man with long standing HTN and DM with CKD h/o Colon CA s/p surgery and Chemo in 2010 Creatinine was 1.5 and 1.4 in December 2022 and hence this referral Also had hypercalcemia of 10.4 mg/dL h/o Varicose veins - s/p surgery and now with leg ulcers Being followed by wound clinic Recently completed a course of antibiotics 02/23/25 The patient is a 79 year old male presenting for a follow-up visit for chronic condition management. He reports that his medications are unchanged and confirms he is taking Trulicity. He denies any swelling in the legs. [facility] Medical History Atherosclerotic cardiovascular disease Ischemic cardiomyopathy Essential hypertension Colon cancer Type 2 diabetes mellitus with hyperglycemia Hypercholesterolemia Diabetic nephropathy Vitamin D deficiency Peripheral vascular disease Coronary artery disease Generalized osteoarthritis Asthma Surgical History History of vascular surgery S/P sclerotherapy of varicose veins Family History Father Hypertension Mother CVD (cardiovascular disease) Hypertension Maternal Uncle Prostate cancer Social History Housing: House Alcohol intake: former Patient Tobacco Use Status: Never used Tobacco Tobacco use type: Cigarette e-Cigarette/Vaping Use: Never Used Second Hand Smoke Exposure: No Advance Directives Date on File: 02/03/21 service: Yes Current occupational status: retired and disabled Current occupational exposures/hazards: No Cognitive needs: Yes (Cane) Hearing needs: Yes (Hearing aide) Vision needs: No Physical Exam Vital Signs: Last Vital Signs Pulse 61 02/23/25 13:47 BP 130/62 02/23/25 13:47 Pulse Ox 94 02/23/25 13:47 Oxygen Delivery Method Room Air 02/23/25 13:47 BMI result Body Mass Index 24.3 Comfortable Neck supple no JVD. Lungs entry equal no rales. Heart S1-S2 heard no gallop or rub. Abdomen soft nontender. Neuro alert awake oriented. No asterixis. Extremities ++ edema. 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 NO hydro in the past In the meantime, Avoid nephrotoxins Agree with ACEi and SGLT-2 inhibitors GLycosuria due to SGLT-2 inhibitors (2) BPH (benign prostatic hyperplasia): Code(s): N40.0 - Benign prostatic hyperplasia without lower urinary tract symptoms Category: Medical Plan: Follow with Urology (3) Hypercalcemia: Code(s): E83.52 - Hypercalcemia Category: Medical Plan: Repeat Ca is normal SPEP - no MCGP Orders: Orders Basic Metabolic Panel 1 Month N18.9 - Chronic kidney disease, unspecified Complete Blood Count no Diff 1 Month N18.9 - Chronic kidney disease, unspecified Parathyroid Hormone Intact 1 Month N18.9 - Chronic kidney disease, unspecified Coding Level of Care Code Est Pt Level 4 (01249) Diagnoses Chronic kidney disease N18.9 BPH (benign prostatic hyperplasia) N40.0 Hypercalcemia E83.52
== END 2025-02-23 14:03 | disposition home or self-care (01) ==
LOC: HO.HKA 13:45
PROVIDERS: PCP Internal Medicine; Visit Provider Internal Medicine Hypertension Specialist
DX: N18.9 Chronic kidney disease, unspecified (principal); N40.0 Benign prostatic hyperplasia without lower urinary tract symptoms; E83.52 Hypercalcemia
CPT/HCPCS: 99214

== ENCOUNTER → 2025-02-23 13:45 | Outpatient (BNVA) | payer MEDICARE, MEDICAID, SELFPAY | PROVIDERS: PCP Internal Medicine; Visit Provider Internal Medicine Hypertension Specialist | DX: E83.52 Hypercalcemia (principal); N40.0 Benign prostatic hyperplasia without lower urinary tract symptoms; N18.9 Chronic kidney disease, unspecified | CPT/HCPCS: 99212 ==